=== PATIENT | female | born 1955 | race Caucasian/White ===

== ENCOUNTER → 2016-03-06 | Outpatient (REF) | payer MEDICARE ==
[~2016-03-06] MED LIST: /ADVA50050; COMBIVENT INHALER; CRES20TA; DEPA250T3; DEPA500T; GLUC500T; K-TA10TA; LASI40TA; LEVA500T; LIPI20TA; LISI20TA5; LISI40TA; OMEP20TA7; PRED20TA; PROZ20CA; SING10TA31; VENTAER; VICO5TAB
[2016-03-06 13:17] LABS: ALBUMIN 3.5 GM/DL (3.2-5.2); ALBUMIN/GLOBULIN RATIO 1.13 (1.00-1.93); ALKALINE PHOSPHATASE 129 U/L (45-117); ALT/SGPT 31 U/L (12-78); ANION GAP 7 MEQ/L (8-16); AST/SGOT 22 U/L (15-37); BILIRUBIN,TOTAL 0.5 MG/DL (0.2-1.0); BLOOD UREA NITROGEN 10 MG/DL (7-18); CALCIUM LEVEL 9.1 MG/DL (8.8-10.2); CARBON DIOXIDE LEVEL 34 MEQ/L (21-32); CHLORIDE LEVEL 104 MEQ/L (98-107); CHOLESTEROL LEVEL 159 MG/DL (<200); CREATININE FOR GFR 0.76 MG/DL (0.55-1.02); GLOMERULAR FILTRATION RATE > 60.0 (>45); GLUCOSE, FASTING 152 MG/DL (80-110); POTASSIUM SERUM 4.7 MEQ/L (3.5-5.1); SODIUM LEVEL 145 MEQ/L (136-145); TOTAL PROTEIN 6.6 GM/DL (6.4-8.2); TRIGLYCERIDES LEVEL 206 MG/DL (<150)
== END ==
LOC: M LABDRWAD 12:25
PROVIDERS: ATTEND Nurse Practitioner Family
DX: I10 Essential (primary) hypertension (principal); E78.4 Other hyperlipidemia; E61.1 Iron deficiency

== ENCOUNTER → 2016-07-11 | Outpatient (REF) | payer MEDICARE ==
[2016-07-11 12:44] LABS: BASO # 0.1 K/mm3 (0.0-0.2); BASO % 0.8 % (0.0-1.0); EOS # 0.4 K/mm3 (0.0-0.50); EOS % 3.6 % (0.0-3.0); LARGE UNSTAINED CELL # 0.1 K/mm3 (0.0-0.4); LYMPH # 2.4 K/mm3 (1.5-4.5); LYMPH % 19.4 % (24.0-44.0); MEAN CORPUSCULAR HEMOGLOBIN 30.4 pg (27.0-33.0); MEAN CORPUSCULAR HGB CONC 32.6 g/dl (32.0-36.5); MEAN CORPUSCULAR VOLUME 93.3 fl (80.0-96.0); MONO # 0.5 K/mm3 (0.0-0.8); MONO % 4.5 % (0.0-5.0); NEUTROPHILS # 8.4 K/mm3 (1.8-7.7); NEUTROPHILS % 70.7 % (36.0-66.0); PLATELET COUNT, AUTOMATED 220 k/mm3 (150-450); RED CELL DISTRIBUTION WIDTH 14.2 % (11.5-14.5); WHITE BLOOD COUNT 11.9 K/mm3 (4.0-10.0)
[2016-07-11 13:01] LABS: ALBUMIN 3.1 GM/DL (3.2-5.2); ALBUMIN/GLOBULIN RATIO 0.86 (1.00-1.93); ALKALINE PHOSPHATASE 129 U/L (45-117); ALT/SGPT 36 U/L (12-78); ANION GAP 5 MEQ/L (8-16); AST/SGOT 30 U/L (15-37); BILIRUBIN,TOTAL 0.4 MG/DL (0.2-1.0); BLOOD UREA NITROGEN 12 MG/DL (7-18); CALCIUM LEVEL 8.9 MG/DL (8.8-10.2); CARBON DIOXIDE LEVEL 33 MEQ/L (21-32); CHLORIDE LEVEL 103 MEQ/L (98-107); CHOLESTEROL LEVEL 170 MG/DL (<200); GLOMERULAR FILTRATION RATE > 60.0 (>45); GLUCOSE, FASTING 139 MG/DL (80-110); POTASSIUM SERUM 4.4 MEQ/L (3.5-5.1); SODIUM LEVEL 141 MEQ/L (136-145); TOTAL PROTEIN 6.7 GM/DL (6.4-8.2); TRIGLYCERIDES LEVEL 190 MG/DL (<150)
== END ==
LOC: M LABDRWAD 12:12
PROVIDERS: ATTEND Nurse Practitioner Family
DX: E78.4 Other hyperlipidemia (principal); E61.1 Iron deficiency

== ENCOUNTER → 2016-08-07 | Outpatient (CLI) | payer MEDICARE ==
--- NOTE | 2016-08-07 11:15 | REPMRS ---
Patient History The patient states she has not had a clinical breast exam in over a year. Patient is postmenopausal and is nulliparous. Family history of breast cancer in 3 maternal cousins. Digital Woman Screen Mammo: August 07, 2016 - Exam #: [id number] Bilateral CC and MLO view(s) were taken. Technologist: Caro Mahoney, Technologist Prior study comparison: January 08, 2014, digital woman screen mammo performed at [facility] to [facility]. December 31, 2009, bilateral bilat screen digital mammo performed at [facility]. FINDINGS: There are scattered fibroglandular densities. There has been no change in the appearance of the mammogram from the prior studies. There is a mild amount of residual fibroglandular tissue which is fairly symmetric. There is no interval development of dominant mass, architectural distortion, or clustered microcalcification suggestive of malignancy. ASSESSMENT: BI-RADS/ACR category 1 mammogram. Negative. Recommendation Routine screening mammogram in 1 year (for women over age 40). This mammogram was interpreted with the aid of an FDA-approved computer-aided dectection system. Electronically Signed By: Trav Abrams MD 08/07/16 1319
== END ==
LOC: M WHC 09:23
PROVIDERS: ATTEND Nurse Practitioner Family
DX: Z12.31 Encounter for screening mammogram for malignant neoplasm of breast (principal); Z78.0 Asymptomatic menopausal state; Z80.3 Family history of malignant neoplasm of breast

== ENCOUNTER 2016-10-10 15:45 | Inpatient (IN) | payer MEDICARE ==
[~2016-10-10] VITALS: Ht 165.1 cm; Wt 141.4 kg
[2016-10-10] MEDS ORDERED: SYMB16INH INH ×2 (15:58→18:10)
[2016-10-10] MEDS ORDERED: LOSA50TA20 PO ×2 (16:03→18:10)
[2016-10-10] MEDS ORDERED: GLIM2TAB PO ×2 (16:03→18:10)
[2016-10-10] MEDS ORDERED: ROCE1INJ4 IM (16:10)
[2016-10-10] MEDS ORDERED: NS 1,000 ML IV SCH (16:17)
[2016-10-10] MEDS ORDERED: ACETAMINOPHEN 325 MG TAB PO ONE (16:30)
[2016-10-10 16:57] LABS: VENOUS BASE EXCESS -0.7 (-2.0-2.0); VENOUS O2 SATURATION 90.8 % (60.0-80.0); VENOUS PARTIAL PRESSURE CO2 43.5 mmHg (38.0-50.0); VENOUS STANDARD HCO3 23.7 MEQ/L; VENOUS TOTAL CO2 26.1 MEQ/L (24.0-28.0)
[2016-10-10 17:02] LABS: BASO % 0.5 % (0.0-1.0); EOS # 0.1 K/mm3 (0.0-0.50); EOS % 0.7 % (0.0-3.0); LARGE UNSTAINED CELL % 0.1 % (0.0-4.0); LYMPH # 0.7 K/mm3 (1.5-4.5); LYMPH % 6.5 % (24.0-44.0); MEAN CORPUSCULAR HEMOGLOBIN 29.9 pg (27.0-33.0); MEAN CORPUSCULAR HGB CONC 32.1 g/dl (32.0-36.5); MEAN CORPUSCULAR VOLUME 93.2 fl (80.0-96.0); MONO # 0.1 K/mm3 (0.0-0.8); MONO % 0.7 % (0.0-5.0); NEUTROPHILS # 9.4 K/mm3 (1.8-7.7); NEUTROPHILS % 91.4 % (36.0-66.0); PLATELET COUNT, AUTOMATED 210 k/mm3 (150-450); RED CELL DISTRIBUTION WIDTH 14.4 % (11.5-14.5); WHITE BLOOD COUNT 10.3 K/mm3 (4.0-10.0)
[2016-10-10 17:19] LABS: ALBUMIN 3.4 GM/DL (3.2-5.2); ALBUMIN/GLOBULIN RATIO 0.83 (1.00-1.93); ALKALINE PHOSPHATASE 157 U/L (45-117); ALT/SGPT 30 U/L (12-78); ANION GAP 9 MEQ/L (8-16); AST/SGOT 19 U/L (15-37); BILIRUBIN,DIRECT < 0.1 MG/DL (0.0-0.2); BILIRUBIN,TOTAL 0.2 MG/DL (0.2-1.0); BLOOD UREA NITROGEN 12 MG/DL (7-18); CALCIUM LEVEL 9.3 MG/DL (8.8-10.2); CARBON DIOXIDE LEVEL 26 MEQ/L (21-32); CHLORIDE LEVEL 106 MEQ/L (98-107); CREATININE FOR GFR 1.22 MG/DL (0.55-1.02); GLOMERULAR FILTRATION RATE 47.5 (>45); GLUCOSE, FASTING 374 MG/DL (80-110); POTASSIUM SERUM 4.6 MEQ/L (3.5-5.1); SODIUM LEVEL 141 MEQ/L (136-145); TOTAL PROTEIN 7.5 GM/DL (6.4-8.2)
[2016-10-10] MEDS: IPRATROPIUM 0.5MG/ALBUTEROL 2.5MG INH SOL UD 3ML (DUONEB)(J7620) NEB PRN ×2 (17:20→17:29)
[2016-10-10] MEDS ORDERED: AZITHROMYCIN INJ 500 MG, VIAL MATE ADAPTER 1 EACH in D5W 250 ML IV ONE (17:30)
[2016-10-10] MEDS ORDERED: GLUCAGON FOR INJ 1 MG VIAL (J1610) SC PRN (18:00)
[2016-10-10] MEDS ORDERED: DEXTROSE 50% 50 ML SYRINGE IV PRN (18:00)
[2016-10-10] MEDS ORDERED: ONDANSETRON 4MG/2ML VIAL (J2405) IV PRN (18:00)
[2016-10-10] MEDS ORDERED: ALBUTEROL SULFATE 2.5 MG/0.5 ML INH NEB SOLN INH PRN (18:00)
[2016-10-10] MEDS ORDERED: GLUCOSE 4 GM CHEW TABLET PO PRN (18:00)
[2016-10-10] MEDS ORDERED: ALBU17IN INH (18:10)
[2016-10-10] MEDS ORDERED: OMEP20CA3 PO (18:10)
[2016-10-10] MEDS ORDERED: METF-699 PO (18:10)
--- NOTE | 2016-10-10 18:23 | ECGEPIP ---
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
[2016-10-10] MEDS ORDERED: SODIUM CHLORIDE 0.9% 1000 ML IV ONE (18:30)
[2016-10-10] MEDS ORDERED: methylPREDNISolone INJ 125 MG/2 ML VIAL (J2930) IV ONE (18:30)
[2016-10-10] MEDS ORDERED: PROZ20CA11 PO (18:37)
--- NOTE | 2016-10-10 18:51 | REP ---
REASON: Dyspnea. COMPARISON: 10/29/2009. FINDINGS: The superior mediastinal structures are midline. The cardiac silhouette is unremarkable in size, shape, and position. The diaphragmatic surfaces of the lungs are regular, and the costophrenic angles are clear. The pulmonary emery are clear. The imaged osseous structures are intact. Stable mild chronic changes without evidence of acute cardiopulmonary disease. IMPRESSION: There is no acute cardiopulmonary disease. Signed by Phillip Caldwell DO 10/10/2016 07:47 P
[2016-10-10] MEDS: cefTRIAXone SOD 2 GM in D5W MINI-BAG PLUS 50 ML IV SCH (20:22)
--- NOTE | 2016-10-10 20:48 | HPE ---
DATE OF ADMISSION: 10/10/2016 This is a patient of Dr. Debi Swenson. ELEMENTARY ART TEACHER: Ansley Randle MD CAR COUPLER: Nikolay Macario MD CHIEF COMPLAINT: Wheezing. The following is a summary of her presentation: This is a 61-year-old who felt unwell for a couple of weeks. She has been having a cough, which is not unusual for her, but generally feeling weak and tired, somewhat more short of breath. She has had increased wheezing over the last couple of days, also developed left-sided chest pain, which is pleuritic and only associated with cough, with cough it is a 3/10, it does not radiate, it is not associated with nausea or vomiting, it has been associated with fever at home, she forgot how high, but it did break last night and she was having diaphoresis. She has had upset stomach for a week. She went to Dr. Swenson's office today. He told her she had a touch of pneumonia and was given a dose of Rocephin and sent to the emergency department for evaluation. In the emergency department, she was found to be tachycardic with an elevated lactic acid and apparently was thought to need admission. She does have obstructive sleep apnea, which she is noncompliant with continuous positive airway pressure (CPAP). She does not describe orthopnea, paroxysmal nocturnal dyspnea, or lower extremity edema. She has no recent travel history. PAST MEDICAL HISTORY: Notable for bipolar, obstructive and restrictive pulmonary disease as noted in Dr. Perry's note of 09/13/2009, diabetes, not on insulin, hyperlipidemia, hypertension, obstructive sleep apnea, noncompliant with her device, degenerative joint disease, diastolic congestive heart failure secondary to left ventricular hypertrophy, morbid obesity with a body mass index (BMI) of 53 which complicates care. SURGICAL HISTORY: Notable for a dilatation and curettage (D and C). Socially, she continues to smoke at least a half a pack a day. She lives in [place]. She sees Dr. Swenson, she had previously seen Liam Crawley. ALLERGIES: She has an allergy to PENICILLIN. MEDICATIONS: At home are still being verified, but appear to include an ARB, glimepiride, and metformin. FAMILY HISTORY: Is notable for a mother who at age 54 of leukemia, father who in his 60s of heart disease. REVIEW OF SYSTEMS: Notable for a fever, diaphoresis, anxiety. No headache, no visual changes, no runny nose, no sore throat. She has a cough. She is short of breath. She has no abdominal pain. No change in her bowel or bladder habits. No history of seizures. Otherwise unremarkable. PHYSICAL EXAMINATION: Temperature 95.6, pulse 106, respiratory rate 18, blood pressure 156/83, she is reported as 84% on room air. Intake and output not yet available. BMI is 53. She is awake, appropriately interactive, pleasantly conversant but anxious. Sinuses are nontender. Pupils equal, round, and reactive, anicteric, not injected. Nasal septum is midline. Mucous membranes are moist. Neck is thick. I appreciate no elevation in jugular venous pressure (JVP). She feels warm to the touch. Breathing is symmetrical, diminished in bilateral bases without wheezes, rales, or rhonchi. She is having a nebulizer during this portion of my evaluation and breath sounds are diminished. There is no costovertebral angle (CVA) tenderness. There is no sacral edema. Heart is distant sounding, normal S1, S2. Radial pulses are 2+. She has a systolic ejection murmur loudest at the right sternal border which does not appear to radiate to the neck, it is 3/6. Abdomen soft, doughy, nontender. There are active bowel sounds. There is no suprapubic tenderness. There is no right upper quadrant tenderness. There is no significant lower extremity edema. Sensation is grossly intact in both lower extremities. There are no foot ulcers noted. White cell count 10.3, hemoglobin 17, platelets of 210, BUN 12, creatinine 1.22, lactic acid is 4.3, glucose of 374, CK 53, troponin I less than 0.02, BNP is 41, albumin is 3.4. Blood gas 7.37, 43, 58, 24. Two blood cultures are pending. Chest x-ray was unremarkable. EKG sinus tachycardia. My assessment is as follows: This is a 61-year-old with atypical chest pain, suspicion for community-acquired pneumonia. Patient will require a two midnight hospital stay and admission to the progressive care unit (PCU). Plan will be as follows: 1. Pneumonia. Patient is started on broad-spectrum antibiotics continued from the outpatient setting. Cultures. I have ordered a respiratory panel. She has received two Pneumovax type vaccines before and does receive yearly flu vaccines. 2. The patient has obstructive and restrictive lung disease according to previous documentation. She is noncompliant with continuous positive airway pressure (CPAP). Will be placed on continuous pulse oximetry and supplemental oxygen will be made available. She will have nebulizers and empiric steroids. May benefit from an Acapella type device. 3. The patient has diabetes. Finger sticks are elevated. Will do finger sticks and sliding scale during her stay. 4. The patient has underlying bipolar disorder. Will continue her home medications once they are verified. 5. The patient has a history of hypertension. Currently will give IV fluids and withhold her ARB. 6. Deep venous thrombosis (DVT) prophylaxis has been ordered appropriately in the form of Lovenox. 7. The patient has hyperlipidemia. 8. The patient has continued tobacco use. I have ordered a nicotine patch for her. 9. The patient has a previously unnoted right-sided heart murmur. 2D echocardiogram is ordered. It does say in Dr. Perry's previous note that she does have left ventricular hypertrophy and I would suspect diastolic dysfunction based on his documentation. This does not seem to be decompensated at this point in my evaluation.
[2016-10-10 21:00] VITALS: O2SAT 94
[2016-10-10 22:00] VITALS: O2SAT 92
[2016-10-10] MEDS: HumaLOG INSULIN (NovoLOG) PER UNIT SC SCH (22:04)
[2016-10-10] MEDS: NS 1,000 ML IV SCH (22:05)
[2016-10-10] MEDS: NICOTINE 21MG/24HR 1 EA TRANSDERMAL TD SCH (22:08)
[2016-10-10 22:21] VITALS: BP 151/72
[2016-10-10] MEDS: IPRATROPIUM 0.5MG/ALBUTEROL 2.5MG INH SOL UD 3ML (DUONEB)(J7620) NEB SCH (22:31)
--- NOTE | 2016-10-10 22:54 | HPE ---
DATE OF ADMISSION: 10/10/2016 Time patient was seen was at 2030 hours. PRIMARY CARE PROVIDER: Dr. Swenson CHIEF COMPLAINT: Feeling hot and itchy, was sent from primary care provider for possible pneumonia. HISTORY OF PRESENT ILLNESS: 61-year-old female with a past medical history of chronic obstructive pulmonary disease (COPD), bronchitis, polycythemia from severe COPD, insulin-dependent type 2 diabetes, anxiety, gastroesophageal reflux disease (GERD), bipolar, tobacco dependence, hyperlipidemia, hypertension, obstructive sleep apnea, noncompliant with continuous positive airway pressure (CPAP), diastolic heart failure, who presented with, per patient, feeling hot and itchy; however, she does not appear to be a good historian and appears to be agitated and would like to leave the hospital. Therefore, likely does not provide a full history. Per patient, she was recently taking Prozac and felt hot and itchy. She called the patient's primary care provider, Dr. Swenson, and was told that the patient should take Benadryl and see him the next morning. The patient, during the clinic visit, received losartan and also possibly Solu- Medrol and was told that she should come to the emergency room to get evaluated for possible pneumonia. In the emergency room, the patient stated that she is very sweaty but no actual temperature; however, she stated that she has a fever and was feeling very arm. Otherwise, denies any chest pain, trouble breathing, abdominal pain, nausea, vomiting, diabetes, constipation, problem with urination. Again, she would like to leave the hospital as soon as she can. It is possibly related to the patient's bipolar. ALLERGIES: The patient is allergic to PENICILLIN with unknown reaction; however , per herself, she has no allergies. HOME MEDICATIONS: Include: - Ventolin two puffs inhalation every 4 hours - Symbicort 160/4.5 mcg two puffs inhalation twice a day - Prozac 20 mg one tablet by mouth daily - glimepiride 2 mg by mouth daily - losartan 50 mg one tablet by mouth daily - metformin 500 mg by mouth daily - omeprazole 20 mg by mouth daily PAST MEDICAL HISTORY: 1. Nmu-wbhqwdm-qlfwzqjct type 2 diabetes. 2. COPD. 3. Polycythemia. 4. Anxiety/bipolar. 5. GERD. 6. Tobacco dependence. 7. Hyperlipidemia. 8. Hypertension. 9. Obstructive sleep apnea, noncompliant with CPAP. 10. Diastolic heart failure with ejection fraction of 65% with echocardiogram in 2009. PAST SURGICAL HISTORY: 1. Dilatation and curettage. SOCIAL HISTORY: The patient admits to smoking, smokes 1-1/2 packs per day for at least 40 years. Admits to occasional drinking. Denies any recreational drug use. The patient lives on her own. Does not have any pets. FAMILY HISTORY: The patient's father at age 69 from heart disease. Mother from possible leukemia at age 85. REVIEW OF SYSTEMS: GENERAL: The patient denies any recent traveling. Admits to one of her friend' s grandson had strep throat and who drank the same cup of water with her. Denies any recent weight loss. Admits to fever and chills; however, no measured fever. HEENT: Denies any changes with vision, smell, hearing or taste. Denies any trouble swallowing. Denies any cough or sore throat. CARDIOVASCULAR: Denies any shortness of breath. Denies any chest pain. However , the patient was hypoxic in the emergency room with saturation of only 84%. She admits to sleeping with two pillows and sometimes in a recliner. However, she stated that it was due to her neck and not due to other disease. PULMONARY: Admits to COPD and obstructive sleep apnea, noncompliant with CPAP. Per patient, she will likely need a sleep study. GASTROINTESTINAL: Denies any abdominal pain, nausea, vomiting, diarrhea, constipation. GENITOURINARY: Denies any dysuria, burning on urination, blood in the urine. MUSCULOSKELETAL: Denies any pain anywhere. ENDOCRINE: Denies any heat or cold intolerance. Admits to sweating. NEUROLOGIC: Denies any weakness on any side of her body. Denies any change in sensations. PSYCHIATRIC: Denies any anxiety or depression; however, she does seem to have a significant psychiatric disease of bipolar and sees Dr. Swenson. PHYSICAL EXAMINATION: VITAL SIGNS: Temperature 95.6, pulse 118, respirations 18, blood pressure 187/92, oxygen saturation 90% on room air. The patient's oxygen later was saturating as low as 84% on room air. GENERAL: The patient is a morbidly obese, elderly female who was alert, awake, oriented times three. Appears to be in mild distress. Sitting up comfortably in bed with head elevated at 90 degrees. HEENT: Normocephalic. Mucosa moist. NECK: Supple. No lymphadenopathy. CARDIOVASCULAR: Tachycardic. Normal S1, S2. Difficult to auscultate due to increased in AP diameter and body habitus. LUNGS: Clear to auscultation bilaterally. No wheezes, rales rhonchi. ABDOMEN: Positive bowel sounds. Soft, nontender, nondistended. No peritoneal signs. No ecchymosis. EXTREMITIES: No edema, clubbing or cyanosis. SKIN: Warm and sweaty. NEUROLOGIC: Cranial nerves II through XII intact. No gross neurological deficits. LABORATORY DATA: WBC 10.3, hemoglobin 17, hematocrit 33 with platelets count of 210 and MCV of 93.2. Sodium 141, potassium 4.6, chloride 106, bicarbonate 26, anion gap 9, BUN 12, creatinine 1.22, GFR 47.5, fasting glucose 374, lactic acid was 4.3, calcium 9.3 , AST 19, ALT 30, alkaline phosphatase 157, total CK 53, CK-MB 4.5, BNP was 40.9, total protein 7.5, albumin 3.4. Venous blood gas showed pH of 7.37, PCO2 of 43.5, PO2 of 58, saturation was 90.8 with base excess of -0.7. Blood culture times two is pending. The patient had a PA and lateral chest x-ray that showed no acute cardiopulmonary disease. ASSESSMENT AND PLAN: 61-year-old female with past medical history of COPD, likely bronchitis, polycythemia, jil-cqypexl-vvzxvavyu type 2 diabetes, anxiety, gastroesophageal reflux disease (GERD), tobacco dependence, bipolar, hyperlipidemia, hypertension, obstructive sleep apnea, diastolic heart failure with preserved ejection fraction, presented with : 1. Shortness of breath, likely secondary to chronic obstructive pulmonary disease (COPD) exacerbation versus possible pneumonia. The patient's chest x- ray was clear. However, the patient was sent by primary for pneumonia. She also has lactic acidosis, tachycardia and also appeared to be hypoxic in the emergency room. We will continue with IV steroids, Solu-Medrol 60 mg IV every 8 hours and IV antibiotic with azithromycin and also Rocephin. Continue patient on normal saline at 80 mL per hour. Respiratory panel has been ordered and result is pending. Also strep screen is ordered and result is pending. We will continue to monitor the patient. EKG shows tachycardic with ventricular rate of 111. 2. Polycythemia with hemoglobin of 17, which was chronic for patient and was secondary to chronic hypoxia. 3. Lactic acidosis with lactic acid of 4.3. We will tend a second time. Continue IV fluid at 80 mL per hour. Creatinine of 1.22. Likely secondary to prerenal azotemia. Continue IV fluid. 4. Tyt-tmgiqiw-gxripdigg type 2 diabetes. Continue insulin sliding scale. 5. Anxiety, bipolar. The patient does seem to have a significant psychiatric history. Follows with Dr. Swenson. However, in addition, the patient appears to be anxious in the emergency room and stated that she was breathing fine and would like to leave the hospital. 6. GERD. Continue home proton pump inhibitor. 7. Tobacco dependence. Continue NicoDerm. 8. Hyperlipidemia. Continue statin. 9. History of hypertension. Currently blood pressure is stable at 131/66. We will start the patient on as needed blood pressure medication if needed. 10. Obstructive sleep apnea. Noncompliant with continuous positive airway pressure (CPAP). We will continue home CPAP. However, the patient stated that she cannot bring it in and therefore we will ask respiratory to start the patient on inpatient CPAP. If the patient does not tolerate she may have 1 liter of nasal cannula oxygen during the night. At home, the patient does not use any oxygen and does not use CPAP. 11. Diastolic heart failure with last echocardiogram in 2008 and shows preserved ejection fraction. Continue to monitor. No fluid retention so far. 12. Deep vein thrombosis (DVT) prophylaxis with heparin 5000 units subcutaneously every 8 hours. 13. Fluid, electrolytes and diet. The patient is on normal saline at 80 mL per hour. No other electrolyte abnormalities. Continue patient on carbohydrate consistent diet. DISPOSITION: The patient has lactic acidosis, elevated heart rate and also was tachypneic and has prerenal azotemia. We will rule out infectious etiology. Blood culture times two is pending. Chest x-ray; however, does not look impressive. Continue IV antibiotic for now. We will deescalate as needed depending on culture. The patient has been discussed with attending doctor, Dr. Brown. I have both independently examined this patient as well as reviewed the dictated note. I have discussed in detail with the resident the findings and plan of treatment as documented in the residents note. I will continue to follow the patient and offer further guidance to the patients care as necessary during this hospital stay. JAYLEEN
[2016-10-10 23:00] VITALS: O2SAT 86
[2016-10-10 23:01] VITALS: O2SAT 90
[2016-10-10] MEDS: HEPARIN SOD (PORCINE) 5000 UNITS/ML VIAL SQ SCH (23:53)
[2016-10-10 23:55] VITALS: BP 141/78
[2016-10-11] VITALS (28 sets, daily range): BP systolic 145–161; BP diastolic 69–82; O2SAT 83–97
[2016-10-11] MEDS: IPRATROPIUM 0.5MG/ALBUTEROL 2.5MG INH SOL UD 3ML (DUONEB)(J7620) NEB SCH ×6 (04:14→23:55)
[2016-10-11] MEDS: methylPREDNISolone INJ 125 MG/2 ML VIAL (J2930) IV SCH ×3 (04:15→20:23)
[2016-10-11] MEDS: HEPARIN SOD (PORCINE) 5000 UNITS/ML VIAL SQ SCH ×3 (05:28→23:23)
[2016-10-11 05:54] LABS: BASO % 0.1 % (0.0-1.0); EOS # 0.1 K/mm3 (0.0-0.50); EOS % 0.6 % (0.0-3.0); LARGE UNSTAINED CELL % 0.3 % (0.0-4.0); LYMPH # 1.1 K/mm3 (1.5-4.5); LYMPH % 7.4 % (24.0-44.0); MEAN CORPUSCULAR HEMOGLOBIN 29.7 pg (27.0-33.0); MEAN CORPUSCULAR HGB CONC 32.2 g/dl (32.0-36.5); MEAN CORPUSCULAR VOLUME 92.3 fl (80.0-96.0); MONO # 0.2 K/mm3 (0.0-0.8); MONO % 1.4 % (0.0-5.0); NEUTROPHILS # 12.6 K/mm3 (1.8-7.7); NEUTROPHILS % 90.2 % (36.0-66.0); PLATELET COUNT, AUTOMATED 213 k/mm3 (150-450); RED CELL DISTRIBUTION WIDTH 14.5 % (11.5-14.5)
[2016-10-11 06:15] LABS: ANION GAP 11 MEQ/L (8-16); BLOOD UREA NITROGEN 15 MG/DL (7-18); CALCIUM LEVEL 8.5 MG/DL (8.8-10.2); CARBON DIOXIDE LEVEL 23 MEQ/L (21-32); CHLORIDE LEVEL 108 MEQ/L (98-107); CREATININE FOR GFR 0.88 MG/DL (0.55-1.02); GLOMERULAR FILTRATION RATE > 60.0 (>45); GLUCOSE, FASTING 222 MG/DL (80-110); POTASSIUM SERUM 4.4 MEQ/L (3.5-5.1); SODIUM LEVEL 142 MEQ/L (136-145)
[2016-10-11] MEDS: FLUoxetine 20 MG CAP PO SCH (08:34)
[2016-10-11] MEDS: OMEPRAZOLE 20 MG CAP PO SCH (08:34)
[2016-10-11] MEDS: NICOTINE 21MG/24HR 1 EA TRANSDERMAL TD SCH (08:35)
[2016-10-11] MEDS: HumaLOG INSULIN (NovoLOG) PER UNIT SC SCH ×4 (08:36→20:23)
[2016-10-11] MEDS: NS 1,000 ML IV SCH (08:37)
[2016-10-11] MEDS ORDERED: ENOXAPARIN 40 MG/0.4 ML SYRINGE (J1650) SC SCH (09:00)
[2016-10-11] MEDS: ACETAMINOPHEN TAB 650MG DOSE (2X325MG) PO PRN ×2 (10:46→20:22)
--- NOTE | 2016-10-11 13:32 | IPN ---
DATE: 10/11/2016 61-year-old female seen at bedside. She does appear to have some ongoing shortness of breath and expiratory wheezes audible when I entered the room. She denies any chest pain. No nausea or vomiting. OBJECTIVE: Temperature 98.3, pulse 100 and regular, respiratory rate is 22, blood pressure (BP) 145/71, SPO2 is 94% on room air. General: The patient appears to have some slight respiratory distress, unable to complete sentences when she talks and an audible expiratory wheeze is notable. HEENT: Head is atraumatic, normocephalic. Eyes: Pupils equal and reactive to light and accommodation (JACKSON). Throat clear. Neck: Supple. Unable to estimate jugular venous distention (JVD) due to body habitus. Lungs: Diminished bibasilar breath sounds with expiratory wheeze. No rhonchi. No rales. Heart: Regular rate and rhythm with a systolic ejection murmur at the right sternal border. It is non radiating. Abdomen is obese, soft, nontender. Extremities: No edema. No calf tenderness. LABORATORY DATA: White count 14,000, hemoglobin is 16.1 and platelets are 113,000. Sodium 142, potassium 4.4, chloride 108, bicarb 23, anion gap 11, BUN is 15, creatinine 0.88, glucose 222. Repeat lactic acid this morning was 4.5 - this likely is secondary to the work of breathing. She does not appear to be toxic or septic based on her physical exam. ASSESSMENT/PLAN: 1. Acute hypoxic respiratory failure with shortness of breath. Will continue with IV steroids, DuoNebs, IV Zithromax and Rocephin for possible underlying community acquired pneumonia. 2. Polycythemia with elevated hemoglobin. This is chronic and likely secondary to her chronic hypoxic state. 3. Lactic acidosis. She does not appear to be septic. She did receive IV fluids last evening. I did review her chest x-ray, it does not appear to have any pleural effusion; however it is a poor quality chest x-ray. She does have a new onset of a murmur. My concern is that we may volume overload her . We are going to stop the IV fluids and 2-D echo is pending at this time. 4. Systolic murmur as indicated above. Will do a 2-D echo. 5. Leukocytosis, likely reactive and secondary to steroid demargination. Will continue to trend. 6. Diabetes. Continue with fingersticks before meals and at bedtime, sliding scale coverage, consistent carbohydrate diet. 7. Anxiety and bipolar disorder. Appears to be stable. 8. Gastroesophageal reflux disease. Stable. 9. Tobacco use. Encourage smoking cessation. 10. Obstructive sleep apnea, noncompliant with C-PAP. 11. History of congestive heart failure (CHF) with diastolic heart failure. Previous echo in 2008 showed ejection fraction of 65%. Again, will go ahead and stop her IV fluids, fluid restrict her, and see how she does over the next 24 hours. 12. Deep vein thrombosis (DVT) prophylaxis. Subcutaneous heparin. DISPOSITION: Anticipate that she will be here another 24-48 hours.
[2016-10-11] MEDS ORDERED: FUROSEMIDE 40 MG/4 ML VIAL (J1940) IV ONE (15:00)
[2016-10-11] MEDS: AZITHROMYCIN INJ 500 MG, VIAL MATE ADAPTER 1 EACH in D5W 250 ML IV SCH (17:02)
[2016-10-11] MEDS: cefTRIAXone SOD 2 GM in D5W MINI-BAG PLUS 50 ML IV SCH (18:05)
--- NOTE | 2016-10-11 21:38 | ECHO ---
DATE OF PROCEDURE: 10/11/2016 REFERRING PHYSICIAN: Nikolay Brown MD PATIENT LOCATION: Room 3221 REASON FOR ECHOCARDIOGRAM: Heart murmur. 2D MEASUREMENTS: IVS: 1.3 cm LV: 5.3 cm LVPW: 1.3 cm LA: 3.7 cm Aorta: 3.1 cm DOPPLER MEASUREMENTS: Peak velocity across the aortic valve: 1.8 m/s Peak velocity across the LVOT: 1.1 m/s Mitral E: 0.82, Mitral A: 1.1, with a ratio of 0.8 2D COMMENTS: 1. Technically limited study due to poor acoustic window secondary to lung interference. 2. Normal left ventricular size and systolic function. There is mild concentric left ventricular hypertrophy. The estimated global left ventricular systolic ejection fraction is 60 to 65%. 3. Normal left atrium. The right atrium and the right ventricle appeared to be normal in limited views. 4. The atrial septum appeared to be normal without evidence of defect or shunt. 5. Normal aortic root. 6. No pericardial effusion seen in limited views. 7. Mildly calcified aortic valve, leaflet excursion appeared to be normal. Normal mitral valve and tricuspid valve. The pulmonic valve and proximal pulmonary artery branches were not well visualized. 8. The inferior vena cava was not well visualized. DOPPLER: No significant valvular abnormalities detected. Abnormal relaxation was noted across the mitral valve leaflets consistent with probably grade 1 left ventricular diastolic dysfunction. IMPRESSION: 1. Technically limited study due to poor acoustic window. 2. Normal global left ventricular systolic function with probably mild concentric left ventricular hypertrophy. There are features of left ventricular diastolic dysfunction, grade 1. 3. Aortic valve sclerosis with trivial aortic stenosis. There was no aortic regurgitation detected. MTDD
[2016-10-12] VITALS (16 sets, daily range): BP systolic 141–188; BP diastolic 80–102; O2SAT 79–91
[2016-10-12] MEDS: IPRATROPIUM 0.5MG/ALBUTEROL 2.5MG INH SOL UD 3ML (DUONEB)(J7620) NEB SCH ×6 (03:44→23:21)
[2016-10-12] MEDS: methylPREDNISolone INJ 125 MG/2 ML VIAL (J2930) IV SCH ×3 (04:44→20:08)
[2016-10-12] MEDS: HEPARIN SOD (PORCINE) 5000 UNITS/ML VIAL SQ SCH ×3 (04:44→21:45)
[2016-10-12 06:11] LABS: BASO % 0.2 % (0.0-1.0); EOS % 0.1 % (0.0-3.0); LARGE UNSTAINED CELL # 0.1 K/mm3 (0.0-0.4); LARGE UNSTAINED CELL % 0.5 % (0.0-4.0); LYMPH # 1.3 K/mm3 (1.5-4.5); LYMPH % 6.6 % (24.0-44.0); MEAN CORPUSCULAR HGB CONC 32.6 g/dl (32.0-36.5); MEAN CORPUSCULAR VOLUME 91.9 fl (80.0-96.0); MONO # 0.7 K/mm3 (0.0-0.8); MONO % 3.9 % (0.0-5.0); NEUTROPHILS # 16.2 K/mm3 (1.8-7.7); NEUTROPHILS % 88.6 % (36.0-66.0); PLATELET COUNT, AUTOMATED 228 k/mm3 (150-450); RED CELL DISTRIBUTION WIDTH 14.6 % (11.5-14.5); WHITE BLOOD COUNT 18.3 K/mm3 (4.0-10.0)
[2016-10-12 06:21] LABS: ANION GAP 10 MEQ/L (8-16); BLOOD UREA NITROGEN 22 MG/DL (7-18); CALCIUM LEVEL 9.1 MG/DL (8.8-10.2); CARBON DIOXIDE LEVEL 26 MEQ/L (21-32); CHLORIDE LEVEL 106 MEQ/L (98-107); CREATININE FOR GFR 0.79 MG/DL (0.55-1.02); GLOMERULAR FILTRATION RATE > 60.0 (>45); GLUCOSE, FASTING 203 MG/DL (80-110); MAGNESIUM LEVEL 2.3 MG/DL (1.8-2.4); POTASSIUM SERUM 4.4 MEQ/L (3.5-5.1); SODIUM LEVEL 142 MEQ/L (136-145)
[2016-10-12] MEDS: FLUoxetine 20 MG CAP PO SCH (08:03)
[2016-10-12] MEDS: HumaLOG INSULIN (NovoLOG) PER UNIT SC SCH ×4 (08:03→21:00)
[2016-10-12] MEDS: OMEPRAZOLE 20 MG CAP PO SCH (08:03)
[2016-10-12] MEDS: NICOTINE POLACRILEX 2 MG GUM PO PRN (12:30)
--- NOTE | 2016-10-12 13:21 | IPN ---
DATE: 10/12/2016 61-year-old female resting in bed. She does still subjectively appear to be somewhat short of breath. When she tries to speak has difficulty speaking complete sentences. OBJECTIVE: Temperature is 98.5, pulse 97, respiratory rate 18, blood pressure 141/84, SpO2 is 92% on 2 liters. General: The patient appears to be in no acute distress, is alert, pleasant. HEENT: Unremarkable. Lungs: Diminished bibasilar breath sounds, occasional wheeze. Heart: Regular rate and rhythm, but she does have a left sternal border systolic murmur that does not appear to be radiating, which was noticed on admission. Abdomen is obese, soft, nontender. Positive bowel sounds. No masses or rebound. Extremities: She does have some nonpitting edema of the ankles. No calf tenderness. LABORATORY DATA: White count is 18.3, hemoglobin 16.1 and platelets are 228. Sodium 142, potassium 4.4, chloride 106, bicarbonate 26, anion gap 10, BUN is 22, creatinine 0.79, glucose is 203. 2-D echo demonstrates left ventricular diastolic dysfunction grade 1, otherwise normal global left ventricular systolic function with probable mild concentric left ventricular hypertrophy, aortic valve sclerosis with trivial aortic stenosis. No aortic regurgitation. Otherwise, no significant valvular abnormalities. Left ventricular ejection fraction is 60-65%. ASSESSMENT AND PLAN: 1. Acute hypoxic respiratory failure with shortness of breath. She has continued on intravenous (IV) steroids, Zosyn, Rocephin and DuoNebs for possible underlying prior pneumonia. I would like to go ahead and check a bedside pulmonary function test (PFT) on her as well. 2. Leukocytosis. Likely steroid demargination. She remains afebrile. 3. Polycythemia with elevated hemoglobin. Likely secondary to chronic hypoxia. 4. Systolic murmur with no evidence of significant valvular disease on 2-D echo. 5. Grade 1 diastolic dysfunction. I do suspect that she has some mild component of congestive heart failure exacerbation. She did receive some IV fluids, which we have discontinued, fluid restrict her and gave her some Lasix. Symptom perez, she seems to be about the same. She has a good ejection fraction. 6. Leukocytosis. As stated above. Will continue to follow. 7. Diabetes. Continue fingersticks before meals (a.c.). nightly. Sliding scale coverage. Consistent carbohydrate diet. 8. Anxiety and bipolar disorder, stable. 9. Gastroesophageal reflux disease (GERD), stable. 10. Tobacco use. Encourage smoking cessation. 11. Obstructive sleep apnea. Noncompliant with continuous positive airway pressure (CPAP). 12. Deep venous thrombosis (DVT) prophylaxis. Subcutaneous heparin. DISPOSITION: We will have the patient evaluated by physical therapy (PT) and occupational therapy. I am concerned about her ambulating. She does get short of breath. However, she does have morbid obesity, which can complicate her medical care and multifactorial reasons for her shortness of breath. We will get a bedside PFT on her as well to rule out any restrictive lung disease.
[2016-10-12] MEDS: AZITHROMYCIN INJ 500 MG, VIAL MATE ADAPTER 1 EACH in D5W 250 ML IV SCH (17:30)
[2016-10-12] MEDS: cefTRIAXone SOD 2 GM in D5W MINI-BAG PLUS 50 ML IV SCH (17:30)
[2016-10-12] MEDS: FUROSEMIDE 40 MG/4 ML VIAL (J1940) IV SCH (18:41)
--- NOTE | 2016-10-12 19:52 | ECGEPIP ---
Stationary ECG Study [facility] Test Date: 2016-10-11 Pat Name: TANYA ALICIA Department: Room: [place] [address] Gender: F Makeup Instructor: JESSENIA : 1955 Requested By: LASHANDA Ceron Order Number: [id number] Reading MD: Eyad Pantoja Measurements Intervals [place] Rate: 108 P: 63 SC: 153 QRS: 17 QRSD: 83 T: 26 QT: 333 QTc: 448 Interpretive Statements SINUS TACHYCARDIA SIMILAR 10/10/16 Electronically Signed On 10-12-2016 19:52:02 EDT by Eyad Pantoja
[2016-10-13] VITALS: BP 150/70
[2016-10-13] MEDS: IPRATROPIUM 0.5MG/ALBUTEROL 2.5MG INH SOL UD 3ML (DUONEB)(J7620) NEB SCH ×7 (03:23→23:23)
[2016-10-13 04:00] VITALS: BP 152/74
[2016-10-13] MEDS: methylPREDNISolone INJ 125 MG/2 ML VIAL (J2930) IV SCH ×3 (05:04→19:56)
[2016-10-13] MEDS: HEPARIN SOD (PORCINE) 5000 UNITS/ML VIAL SQ SCH ×3 (05:04→23:39)
[2016-10-13 06:38] LABS: BASO % 0.2 % (0.0-1.0); EOS # 0.1 K/mm3 (0.0-0.50); EOS % 0.5 % (0.0-3.0); LARGE UNSTAINED CELL # 0.1 K/mm3 (0.0-0.4); LARGE UNSTAINED CELL % 0.6 % (0.0-4.0); LYMPH # 1.1 K/mm3 (1.5-4.5); LYMPH % 7.1 % (24.0-44.0); MEAN CORPUSCULAR HGB CONC 32.4 g/dl (32.0-36.5); MEAN CORPUSCULAR VOLUME 92.5 fl (80.0-96.0); MONO # 0.7 K/mm3 (0.0-0.8); MONO % 4.9 % (0.0-5.0); NEUTROPHILS % 86.8 % (36.0-66.0); PLATELET COUNT, AUTOMATED 196 k/mm3 (150-450); RED CELL DISTRIBUTION WIDTH 14.6 % (11.5-14.5)
[2016-10-13 07:45] LABS: ANION GAP 10 MEQ/L (8-16); BLOOD UREA NITROGEN 29 MG/DL (7-18); CALCIUM LEVEL 9.4 MG/DL (8.8-10.2); CARBON DIOXIDE LEVEL 29 MEQ/L (21-32); CHLORIDE LEVEL 103 MEQ/L (98-107); CREATININE FOR GFR 0.85 MG/DL (0.55-1.02); GLOMERULAR FILTRATION RATE > 60.0 (>45); GLUCOSE, FASTING 177 MG/DL (80-110); MAGNESIUM LEVEL 2.6 MG/DL (1.8-2.4); POTASSIUM SERUM 4.3 MEQ/L (3.5-5.1); SODIUM LEVEL 142 MEQ/L (136-145)
[2016-10-13 08:00] VITALS: BP 158/88
[2016-10-13] MEDS: HumaLOG INSULIN (NovoLOG) PER UNIT SC SCH ×4 (08:29→20:13)
[2016-10-13] MEDS: FLUoxetine 20 MG CAP PO SCH (08:30)
[2016-10-13] MEDS: OMEPRAZOLE 20 MG CAP PO SCH (08:30)
[2016-10-13] MEDS: FUROSEMIDE 40 MG/4 ML VIAL (J1940) IV SCH ×2 (08:30→17:10)
[2016-10-13] MEDS ORDERED: SLF 3 ML SYR IV PRN (09:45)
[2016-10-13] MEDS: NICOTINE POLACRILEX 2 MG GUM PO PRN (12:14)
[2016-10-13] MEDS: SLF 3 ML SYR IV SCH ×2 (14:25→23:39)
--- NOTE | 2016-10-13 14:49 | IPNPDOC ---
Date Seen The patient was seen on 10/13/16. Progress Note SUBJECTIVE: Patient is a [61]-year-old seen at bedside still with ongoiong shortness of breath, no chest pain , nausea or vomiting. Tolerating oral intake. OBJECTIVE PHYSICAL EXAMINATION: VITAL SIGNS: Please see below. GENERAL: [NAD] HEENT: [UNREMARKABLE] CARDIOVASCULAR: [RRR]. RESPIRATORY: [DIMINISHED BIBASILAR SOUNDS]. ABDOMINAL: [SOFT, NT/ND] EXTREMITIES: [NEGATIVE] LABORATORY DATA: Please see below. MICROBIOLOGY: Please see below. Echocardiogram: [2-D echo demonstrates left ventricular diastolic dysfunction grade 1, otherwise normal global left ventricular systolic function with probable mild concentric left ventricular hypertrophy, aortic valve sclerosis with trivial aortic stenosis. No aortic regurgitation. Otherwise, no significant valvular abnormalities. Left ventricular ejection fraction is 60-65%.]. DVT prophylaxis ordered?: [Subcutaneous Heparin] ASSESSMENT AND PLAN: This is a 61 yo female seen at bedside. PROBLEMS: 1. Acute hypoxic respiratory failure with shortness of breath. She has continued on intravenous (IV) steroids, Zosyn, Rocephin and DuoNebs for possible underlying prior pneumonia. I'd like for PT/OT to evaluate her for home safety and help determine her level of activity. 2. Leukocytosis. Likely steroid demargination. She remains afebrile. 3. Polycythemia with elevated hemoglobin. Likely secondary to chronic hypoxia. 4. Systolic murmur with no evidence of significant valvular disease on 2-D echo. 5. Grade 1 diastolic dysfunction. I do suspect that she has some mild component of congestive heart failure exacerbation. She did receive some IV fluids, which we have discontinued, fluid restrict her and gave her some Lasix. Symptom perez, she seems to be about the same. She has a good ejection fraction. 6. Leukocytosis. As stated above. Will continue to follow. 7. Diabetes. Continue fingersticks before meals (a.c.). nightly. Sliding scale coverage. Consistent carbohydrate diet. 8. Anxiety and bipolar disorder, stable. 9. Gastroesophageal reflux disease (GERD), stable. 10. Tobacco use. Encourage smoking cessation. 11. Obstructive sleep apnea. Noncompliant with continuous positive airway pressure (CPAP). DISPOSITION: [Will downgrade to the general medical floor and re-evaluate her tomorrow. I did have opportunity to speak to her health care proxy about concerns of her returning to a safe environment and appreciate PFS input. She will likely need home services.]. VS, I&O, 24H, Octaviae Vital Signs/I&O Vital Signs Date Time Temp Pulse Resp B/P (MAP) Pulse Ox O2 Delivery O2 Flow Rate FiO2 10/13/16 08:52 Nasal Cannula 2.0 10/13/16 08:00 98.3 100 19 158/88 (111) 89 I&O- Last 24 Hours up to 6 AM 10/13/16 06:00 Intake Total 2245 ml Output Total 3275 ml Balance -1030 ml Laboratory Data 24H LABS Laboratory Tests 2 10/12/16 17:17: Bedside Glucose (Misc Panel) 165H 10/12/16 21:44: Bedside Glucose (Misc Panel) 210H 10/13/16 05:30: White Blood Count 15.0H, Red Blood Count 5.42H, Hemoglobin 16.2H, Hematocrit 50.2H, Mean Corpuscular Volume 92.5, Mean Corpuscular Hemoglobin 30.0, Mean Corpuscular Hemoglobin Concent 32.4, Red Cell Distribution Width 14.6H, Platelet Count 196, Neutrophils (%) (Auto) 86.8H, Lymphocytes (%) (Auto) 7.1L, Monocytes (%) (Auto) 4.9, Eosinophils (%) (Auto) 0.5, Basophils (%) (Auto) 0.2, Neutrophils # (Auto) 13.0H, Lymphocytes # (Auto) 1.1L, Monocytes # (Auto) 0.7, Eosinophils # (Auto) 0.1, Basophils # (Auto) 0.0, Large Unclassified Cells % 0.6 , Large Unclassified Cells # 0.1 10/13/16 07:02: Anion Gap 10, Glomerular Filtration Rate > 60.0, Blood Urea Nitrogen 29H, Creatinine 0.85, Sodium Level 142, Potassium Level 4.3, Chloride Level 103, Carbon Dioxide Level 29, Calcium Level 9.4, Magnesium Level 2.6H 10/13/16 11:42: Bedside Glucose (Misc Panel) 181H CBC/BMP Laboratory Tests 10/13/16 05:30 Red Blood Count 5.42 H, Mean Corpuscular Volume 92.5, Mean Corpuscular Hemoglobin 30.0, Mean Corpuscular Hemoglobin Concent 32.4, Red Cell Distribution Width 14.6 H, Neutrophils (%) (Auto) 86.8 H, Lymphocytes (%) (Auto ) 7.1 L, Monocytes (%) (Auto) 4.9, Eosinophils (%) (Auto) 0.5, Basophils (%) ( Auto) 0.2, Neutrophils # (Auto) 13.0 H, Lymphocytes # (Auto) 1.1 L, Monocytes # (Auto) 0.7, Eosinophils # (Auto) 0.1, Basophils # (Auto) 0.0 10/13/16 07:02 Calcium Level 9.4 Microbiology Microbiology 10/10/16 Blood Culture - Preliminary, Resulted No Growth after 48 hours. All Specime... 10/10/16 Blood Culture - Preliminary, Resulted No Growth after 48 hours. All Specime... 10/10/16 Group A Streptococcus Screen (ANUJA) - Final, Complete 10/10/16 Group A Streptococcus Screen (ANUJA) - Final, Complete 10/10/16 Respiratory Virus Panel (PCR) (ANUJA) - Final, Complete SHO BOB DO Oct 13, 2016 14:49
[2016-10-13 15:20] VITALS: BP 145/76
--- NOTE | 2016-10-13 16:18 | REP ---
PA and lateral chest: Comparison is 2016. The lung emery are clear. The cardiac size is normal The juan, mediastinum, and bony thorax are unremarkable. Impression: Negative PA and lateral chest. There is no interval change. Signed by Trav Franks MD 10/13/2016 04:09 P
[2016-10-13] MEDS: AZITHROMYCIN INJ 500 MG, VIAL MATE ADAPTER 1 EACH in D5W 250 ML IV SCH (18:22)
[2016-10-13] MEDS: cefTRIAXone SOD 2 GM in D5W MINI-BAG PLUS 50 ML IV SCH (19:56)
[2016-10-13 22:00] VITALS: BP 159/90
[2016-10-13 23:16] VITALS: O2SAT 86
[2016-10-14] MEDS: methylPREDNISolone INJ 125 MG/2 ML VIAL (J2930) IV SCH ×2 (04:12→12:40)
[2016-10-14] MEDS: HEPARIN SOD (PORCINE) 5000 UNITS/ML VIAL SQ SCH ×3 (05:32→21:16)
[2016-10-14 06:00] VITALS: BP 158/88
[2016-10-14 06:46] LABS: ANION GAP 9 MEQ/L (8-16); BLOOD UREA NITROGEN 36 MG/DL (7-18); CALCIUM LEVEL 9.1 MG/DL (8.8-10.2); CARBON DIOXIDE LEVEL 30 MEQ/L (21-32); CHLORIDE LEVEL 103 MEQ/L (98-107); CREATININE FOR GFR 0.82 MG/DL (0.55-1.02); GLOMERULAR FILTRATION RATE > 60.0 (>45); GLUCOSE, FASTING 164 MG/DL (80-110); MAGNESIUM LEVEL 2.7 MG/DL (1.8-2.4); POTASSIUM SERUM 3.9 MEQ/L (3.5-5.1); SODIUM LEVEL 142 MEQ/L (136-145)
[2016-10-14] MEDS: SLF 3 ML SYR IV SCH ×3 (07:00→21:17)
[2016-10-14 07:12] LABS: BASO % 0.2 % (0.0-1.0); EOS % 0.1 % (0.0-3.0); LARGE UNSTAINED CELL # 0.1 K/mm3 (0.0-0.4); LARGE UNSTAINED CELL % 0.6 % (0.0-4.0); LYMPH % 8.4 % (24.0-44.0); MEAN CORPUSCULAR HEMOGLOBIN 29.8 pg (27.0-33.0); MEAN CORPUSCULAR HGB CONC 32.5 g/dl (32.0-36.5); MEAN CORPUSCULAR VOLUME 91.7 fl (80.0-96.0); MONO # 0.6 K/mm3 (0.0-0.8); MONO % 5.2 % (0.0-5.0); NEUTROPHILS % 85.5 % (36.0-66.0); PLATELET COUNT, AUTOMATED 205 k/mm3 (150-450); RED CELL DISTRIBUTION WIDTH 14.4 % (11.5-14.5); WHITE BLOOD COUNT 11.7 K/mm3 (4.0-10.0)
[2016-10-14] MEDS: IPRATROPIUM 0.5MG/ALBUTEROL 2.5MG INH SOL UD 3ML (DUONEB)(J7620) NEB SCH ×4 (08:10→20:52)
[2016-10-14] MEDS: FLUoxetine 20 MG CAP PO SCH (08:44)
[2016-10-14] MEDS: OMEPRAZOLE 20 MG CAP PO SCH (08:44)
[2016-10-14] MEDS: HumaLOG INSULIN (NovoLOG) PER UNIT SC SCH ×4 (08:45→21:17)
[2016-10-14] MEDS: FUROSEMIDE 40 MG/4 ML VIAL (J1940) IV SCH ×2 (08:46→17:28)
--- NOTE | 2016-10-14 08:55 | NOCOX ---
DATE OF SERVICE: 10/14/2016 Nocturnal oximetry recording was started on 10/13/2016 to 10/14/2016. The patient was started on room air; however, the patient had hypoxia at baseline while awake and resting in a recliner. On room air, oxygen saturation was 86% at rest while awake, heart rate was 90. The patient did sleep in a recliner the entire night. Oxygen saturation ranged from 61% to 96%, pulse ranged from 76-122. The total time spent with an oxygen saturation less than 80% was 45 minutes. The longest continuous time with an oxygen saturation less than 88 was 40 minutes and 18 seconds. There were variable desaturations throughout the evening with significant hypoxia. IMPRESSION: Significant hypoxia with variable desaturations. The patient had hypoxia at baseline prior to sleep. Recommend oxygen therapy. If there is concern for sleep apnea, consider formal polysomnogram.
[2016-10-14] MEDS: NICOTINE POLACRILEX 2 MG GUM PO PRN ×3 (09:00→18:52)
[2016-10-14 14:00] VITALS: BP 187/97
[2016-10-14] MEDS: AZITHROMYCIN 250 MG TAB PO SCH (14:49)
--- NOTE | 2016-10-14 15:39 | IPN ---
DATE: 10/14/2016 SUBJECTIVE: A 61-year-old female seen at bedside resting comfortably. She denies productive sputum, cough or hemoptysis. She has participated with physical therapy today and she continues on intravenous (IV) antibiotics. OBJECTIVE: Temperature 97.6, pulse 90, respiratory rate 19, blood pressure 158/88. SPO2 is 90% on room air. GENERAL: The patient appears to be in no acute distress. She is pleasant. HEENT: Unremarkable. LUNGS: Diminished bibasilar breath sounds; otherwise clear. HEART: Regular rate and rhythm. ABDOMEN: Obese, otherwise soft. EXTREMITIES: No edema or calf tenderness. She is noted to drop her oxygen saturations when she ambulates. She is demonstrating some relatively stable functionality; however, we are concerned about her living conditions as well as on IV antibiotics. LABORATORY DATA White count is 11.7 down from 15,000, hemoglobin 16.3, and platelets 205,000. Sodium 142, potassium 3.9, chloride 103, bicarb 30, anion gap nine, BUN is 36, creatinine 0.82, glucose 164. ASSESSMENT/PLAN 1. Acute hypoxic respiratory failure with shortness of breath. Continue IV steroids, Zosyn, Rocephin, DuoNeb. She was cleared by occupational therapy (OT). Physical therapy feels that she is close to her baseline. 2. Leukocytosis likely steroid demargination. She remains afebrile. Will start tapering her steroids tomorrow. 3. Polycythemia with elevated hemoglobin, likely secondary to chronic hypoxia. 4. Systolic murmur with no evidence of significant valvular disease on her 2-D echocardiogram. 5. Diabetes. Continue fingersticks before food and at bedtime, consistent carbohydrate diet with sliding-scale insulin. 6. Anxiety and bipolar disorder, stable. 7. Gastroesophageal reflux disease (GERD), stable. 8. Tobacco use. Encourage smoking cessation. 9. Obstructive sleep apnea (LUZ MARIA), noncompliant with continuous positive airway pressure (C-PAP). 10. Deep venous thrombosis (DVT) prophylaxis: Subcutaneous heparin. DISPOSITION: Anticipate that she will be here another 24-48 hours then likely discharge home with home services. JAYLEEN
[2016-10-14] MEDS: cefTRIAXone SOD 2 GM in D5W MINI-BAG PLUS 50 ML IV SCH (18:23)
[2016-10-14 22:00] VITALS: BP 158/85
[2016-10-15] MEDS ORDERED: methylPREDNISolone INJ 125 MG/2 ML VIAL (J2930) IV SCH
[2016-10-15] MEDS: IPRATROPIUM 0.5MG/ALBUTEROL 2.5MG INH SOL UD 3ML (DUONEB)(J7620) NEB SCH ×6 (03:03→20:55)
[2016-10-15] MEDS: HEPARIN SOD (PORCINE) 5000 UNITS/ML VIAL SQ SCH ×3 (05:26→20:18)
[2016-10-15] MEDS: SLF 3 ML SYR IV SCH ×3 (05:27→20:18)
[2016-10-15 06:00] VITALS: BP 163/82
[2016-10-15 06:24] LABS: BASO % 0.2 % (0.0-1.0); EOS % 0.1 % (0.0-3.0); LARGE UNSTAINED CELL # 0.1 K/mm3 (0.0-0.4); LARGE UNSTAINED CELL % 0.4 % (0.0-4.0); MEAN CORPUSCULAR HEMOGLOBIN 29.6 pg (27.0-33.0); MEAN CORPUSCULAR HGB CONC 32.3 g/dl (32.0-36.5); MEAN CORPUSCULAR VOLUME 91.4 fl (80.0-96.0); MONO # 0.5 K/mm3 (0.0-0.8); MONO % 3.4 % (0.0-5.0); NEUTROPHILS # 11.9 K/mm3 (1.8-7.7); NEUTROPHILS % 88.9 % (36.0-66.0); PLATELET COUNT, AUTOMATED 241 k/mm3 (150-450); RED CELL DISTRIBUTION WIDTH 14.3 % (11.5-14.5); WHITE BLOOD COUNT 13.4 K/mm3 (4.0-10.0)
[2016-10-15 06:43] LABS: ANION GAP 11 MEQ/L (8-16); BLOOD UREA NITROGEN 41 MG/DL (7-18); CALCIUM LEVEL 9.2 MG/DL (8.8-10.2); CARBON DIOXIDE LEVEL 28 MEQ/L (21-32); CHLORIDE LEVEL 103 MEQ/L (98-107); CREATININE FOR GFR 0.97 MG/DL (0.55-1.02); GLOMERULAR FILTRATION RATE > 60.0 (>45); GLUCOSE, FASTING 179 MG/DL (80-110); MAGNESIUM LEVEL 2.8 MG/DL (1.8-2.4); POTASSIUM SERUM 4.2 MEQ/L (3.5-5.1); SODIUM LEVEL 142 MEQ/L (136-145)
[2016-10-15] MEDS: OMEPRAZOLE 20 MG CAP PO SCH (08:17)
[2016-10-15] MEDS: FLUoxetine 20 MG CAP PO SCH (08:17)
[2016-10-15] MEDS: FUROSEMIDE 40 MG/4 ML VIAL (J1940) IV SCH ×2 (08:18→17:13)
[2016-10-15] MEDS: AZITHROMYCIN 250 MG TAB PO SCH (08:18)
[2016-10-15] MEDS: HumaLOG INSULIN (NovoLOG) PER UNIT SC SCH ×4 (08:19→20:18)
[2016-10-15] MEDS: NICOTINE POLACRILEX 2 MG GUM PO PRN ×2 (09:18→22:56)
[2016-10-15] MEDS: predniSONE 20 MG TAB PO SCH (12:18)
--- NOTE | 2016-10-15 13:03 | IPN ---
DATE: 10/15/2016 SUBJECTIVE: A 61-year-old female seen at bedside. No overnight issues reported. She is ambulating well. No chest pain. No productive sputum. No cough. OBJECTIVE: VITAL SIGNS: Temperature is 96.7, pulse 93, respiratory rate is 19, blood pressure 158/85, SPO2 is 92% on room air. GENERAL: The patient appears to be in no acute distress. She is alert and oriented. HEENT: Unremarkable. LUNGS: Clear. HEART: Regular rate and rhythm. ABDOMEN: Soft. EXTREMITIES: No edema. No calf tenderness. LABORATORY DATA: White count is 13.4, hemoglobin 17.5, platelets 241,000. Sodium 142, potassium 4.2, chloride 103, bicarbonate 28, anion gap 11, BUN 41, creatinine 0.97, glucose 179. ASSESSMENT AND PLAN: 1. Acute hypoxic respiratory failure with shortness of breath. Continue with DuoNebs. We did switch her Solu-Medrol to oral prednisone and began to taper and she has been switched to oral Zithromax. 2. Leukocytosis, likely some steroid demargination. She remains afebrile and this is trending downward. 3. Polycythemia with elevated hemoglobin, secondary to chronic hypoxia. 4. Systolic murmur. No evidence of significant valvular disease on 2-D echocardiogram. 5. Diabetes. Continue fingersticks before meals and at bedtime, consistent-carbohydrate diet with sliding scale insulin. 6. Anxiety, bipolar disorder, stable. 7. Gastroesophageal reflux disease (GERD), stable. 8. Tobacco use. Encourage smoking cessation. 9. Obstructive sleep apnea with history of being noncompliant with continuous positive airway pressure (CPAP). 10. Deep vein thrombosis (DVT) prophylaxis. Subcutaneous heparin. DISPOSITION: She is doing well with physical therapy. She is likely ready for home discharge tomorrow with home services.
[2016-10-15 14:00] VITALS: BP 150/92
[2016-10-15 20:41] VITALS: BP 162/98
[2016-10-16] MEDS: IPRATROPIUM 0.5MG/ALBUTEROL 2.5MG INH SOL UD 3ML (DUONEB)(J7620) NEB SCH ×4 (03:45→11:21)
[2016-10-16] MEDS: HEPARIN SOD (PORCINE) 5000 UNITS/ML VIAL SQ SCH (05:28)
[2016-10-16] MEDS: SLF 3 ML SYR IV SCH (05:29)
[2016-10-16 06:00] VITALS: BP 154/72
[2016-10-16 06:13] LABS: BASO # 0.1 K/mm3 (0.0-0.2); BASO % 0.8 % (0.0-1.0); EOS # 0.2 K/mm3 (0.0-0.50); EOS % 1.3 % (0.0-3.0); LARGE UNSTAINED CELL # 0.1 K/mm3 (0.0-0.4); LARGE UNSTAINED CELL % 0.7 % (0.0-4.0); LYMPH # 3.3 K/mm3 (1.5-4.5); LYMPH % 20.3 % (24.0-44.0); MEAN CORPUSCULAR HEMOGLOBIN 29.7 pg (27.0-33.0); MEAN CORPUSCULAR HGB CONC 32.6 g/dl (32.0-36.5); MEAN CORPUSCULAR VOLUME 91.3 fl (80.0-96.0); MONO # 0.9 K/mm3 (0.0-0.8); MONO % 5.4 % (0.0-5.0); NEUTROPHILS # 11.4 K/mm3 (1.8-7.7); NEUTROPHILS % 71.6 % (36.0-66.0); PLATELET COUNT, AUTOMATED 238 k/mm3 (150-450); WHITE BLOOD COUNT 15.9 K/mm3 (4.0-10.0)
[2016-10-16 06:27] LABS: ANION GAP 8 MEQ/L (8-16); BLOOD UREA NITROGEN 42 MG/DL (7-18); CALCIUM LEVEL 9.3 MG/DL (8.8-10.2); CARBON DIOXIDE LEVEL 30 MEQ/L (21-32); CHLORIDE LEVEL 100 MEQ/L (98-107); CREATININE FOR GFR 0.85 MG/DL (0.55-1.02); GLOMERULAR FILTRATION RATE > 60.0 (>45); GLUCOSE, FASTING 126 MG/DL (80-110); MAGNESIUM LEVEL 2.7 MG/DL (1.8-2.4); POTASSIUM SERUM 3.8 MEQ/L (3.5-5.1); SODIUM LEVEL 138 MEQ/L (136-145)
[2016-10-16] MEDS: predniSONE 20 MG TAB PO SCH (08:26)
[2016-10-16] MEDS: OMEPRAZOLE 20 MG CAP PO SCH (08:26)
[2016-10-16] MEDS: HumaLOG INSULIN (NovoLOG) PER UNIT SC SCH ×2 (08:26→13:02)
[2016-10-16] MEDS: FLUoxetine 20 MG CAP PO SCH (08:27)
[2016-10-16] MEDS: AZITHROMYCIN 250 MG TAB PO SCH (08:27)
[2016-10-16] MEDS ORDERED: FUROSEMIDE 40 MG TAB PO SCH (09:00)
[2016-10-16] MEDS: NICOTINE POLACRILEX 2 MG GUM PO PRN (10:38)
[2016-10-16] MEDS ORDERED: methylPREDNISolone 80MG/ML SUSP 1ML VIAL (J1040) IM ONE (11:15)
[2016-10-16] MEDS ORDERED: FURO40TA2 PO (11:38)
[2016-10-16] MEDS ORDERED: NICO2GUM62 PO (11:38)
--- NOTE | 2016-10-16 12:57 | DSES ---
DATE OF ADMISSION: 10/10/2016 DATE OF DISCHARGE: 10/16/2016 DATE OF DICTATION: 10/16/2016 PRIMARY CARE PROVIDER: Dr. Debi Swenson SWATCH CUTTER: Dr. Randle PRINCIPAL DIAGNOSIS: Exacerbation of chronic obstructive pulmonary disease (COPD) secondary to upper respiratory infection and noncompliance. SECONDARY DIAGNOSES: 1. Obstructive sleep apnea, noncompliant with continuous positive airway pressure (CPAP). 2. Hypoxemia secondary to untreated LUZ MARIA. 3. Polycythemia secondary to chronic hypoxia. 4. Type 2 diabetes secondary to obesity. 5. Morbid obesity. 6. Tobacco abuse. 7. Gastroesophageal reflux disease (GERD). 8. Chronic anxiety disorder. HISTORY: Misa Dong was admitted with shortness of breath. She had an infiltrate on chest x-ray, but was short of breath and hypoxemic. Details of the history and physical per admission. HOSPITALIZATION COURSE: The patient was admitted to a medical bed, treated with IV steroids, nebulized bronchodilator, and intravenous Zithromax. She was put on nicotine patches but did not tolerate the patches due to skin irritation. She was hypoxemic on admission and that improved, room air oxygen saturation returned to normal range. She did have a pulse oximetry done that suggested hypoxemia with a nocturnal oxygen level of 61 to 96%. She was recommended nocturnal oxygen, which she declined. She does agree to see pulmonology as an outpatient and discuss treatment of her currently untreated severe sleep apnea. She understands the risks of proceeding with this and accepts this in the presence of her family member, who I believed to be her daughter. She had a spirometry done that showed severe restricted problems secondary to obesity with an FEV1 of 50% predicted, FEV1/FVC of 107%, no obstruction, primarily restricted secondary to obesity. Echocardiogram was obtained and it showed ejection fraction of 60 to 65%. Mildly calcific aortic valve without aortic stenosis. Features of left ventricular diastolic dysfunction, which was mild. Technically difficult. No comment made about right sided pressures. Significant laboratories: White count 15.9 on steroids, hemoglobin 17.7, platelets 238, sodium 138, potassium 3.8, BUN 42, creatinine 0.8, glucose 126. Blood sugars have been in the 150 to 250 range. DISPOSITION: The patient is insisting on discharge today. I wanted her to see a cashier receptionist, but she is insisting on discharge. I wanted to discuss home oxygen, but as her room air oxygen saturations are normal she is declining oxygen. She understands that she has obstructive sleep apnea and that nocturnal oxygen would be useful, though benefit limited without the use of continuous positive airway pressure (CPAP). She does agree to followup with [facility]. On the day of discharge, her blood pressure is 154/72, pulse 55, respiratory rate 16, 95% oxygen saturation on room air. She is alert, conversant. No distress. HEENT: Shows a thick neck and narrow airway. LUNGS: Decreased breath sounds but clear. HEART: Regular rhythm without murmur. ABDOMEN: Soft, nontender. Obese. No masses. EXTREMITIES: Trace peripheral edema. The patient is discharged home. She will followup with Dr. Swenson. She has an appointment already scheduled for 10/19/2016. I have asked to have an appointment made with Dr. Randle to readdress her sleep apnea. She received a dose of Depo Medrol 80 mg intramuscularly before discharge. We will given her the steroid taper over the next week. MEDICATIONS ON DISCHARGE: - albuterol two puffs every four hours as needed - Symbicort 160/4.5 two puffs twice a day - Prozac 20 mg daily - glimepiride 2 mg daily - losartan 50 mg daily - metformin 500 mg daily - omeprazole 20 mg daily As noted above, she received Depo-Medrol 80 mg intramuscularly before discharge and we will hand her the steroid taper over the next week. She is started on furosemide 40 mg twice a day with a need to monitor the dosing and need for continuation of this, defer to her outpatient provider at the followup appointment on 10/19/2016. She is asking for nicotine 2 mg gum every 2 hours as needed for nicotine withdrawal. She cannot tolerate nicotine patches as they cause skin rash. edited: 10/18/2016 0816 gerardof SADED
[2016-10-18] MEDS ORDERED: predniSONE 10 MG TAB PO SCH (09:00)
[2016-10-21] MEDS ORDERED: predniSONE 20 MG TAB PO SCH (09:00)
[2016-10-24] MEDS ORDERED: predniSONE 10 MG TAB PO SCH (09:00)
== END 2016-10-16 13:47 | disposition home or self-care (01) | DRG 190 ==
LOC: M ED 15:45 → M ED INP 17:58 → M PCU 21:33 → M MSPAV 10-13 15:18
PROVIDERS: ADMIT Internal Medicine; ATTEND Family Medicine
DX: J44.1 Chronic obstructive pulmonary disease with (acute) exacerbation (principal); I50.33 Acute on chronic diastolic (congestive) heart failure; J96.01 Acute respiratory failure with hypoxia; E87.2 Acidosis; Z68.43 Body mass index [BMI] 50.0-59.9, adult; I11.9 Hypertensive heart disease without heart failure; E66.01 Morbid (severe) obesity due to excess calories; Z91.19 Patient's noncompliance with other medical treatment and regimen; G47.33 Obstructive sleep apnea (adult) (pediatric); E11.9 Type 2 diabetes mellitus without complications; F17.200 Nicotine dependence, unspecified, uncomplicated; K21.9 Gastro-esophageal reflux disease without esophagitis; F41.9 Anxiety disorder, unspecified; D75.1 Secondary polycythemia; Z79.899 Other long term (current) drug therapy; F31.9 Bipolar disorder, unspecified; E78.5 Hyperlipidemia, unspecified; Z88.0 Allergy status to penicillin; R01.1 Cardiac murmur, unspecified; D72.829 Elevated white blood cell count, unspecified

== ENCOUNTER → 2017-09-26 | Outpatient (REF) | payer MEDICARE ==
[2017-09-26 12:57] LABS: HEMATOCRIT 49.3 % (36.0-47.0); HEMOGLOBIN 16.1 g/dl (12.0-15.5); MEAN CORPUSCULAR HEMOGLOBIN 28.6 pg (27.0-33.0); MEAN CORPUSCULAR HGB CONC 32.7 g/dl (32.0-36.5); MEAN CORPUSCULAR VOLUME 87.6 fl (80.0-96.0); PLATELET COUNT, AUTOMATED 232 10^3/uL (150-450); RED BLOOD COUNT 5.63 10^6/uL (4.00-5.40); RED CELL DISTRIBUTION WIDTH 14.3 % (11.5-14.5); WHITE BLOOD COUNT 9.1 10^3/uL (4.0-10.0)
[2017-09-26 13:11] LABS: TOTAL 25(OH) VITAMIN D 16.8 NG/ML (30.0-100.0)
[2017-09-26 13:28] LABS: ALBUMIN 3.5 GM/DL (3.2-5.2); ALBUMIN/GLOBULIN RATIO 0.95 (1.00-1.93); ALKALINE PHOSPHATASE 125 U/L (45-117); ALT/SGPT 23 U/L (12-78); ANION GAP 9 MEQ/L (8-16); AST/SGOT 17 U/L (7-37); BILIRUBIN,TOTAL 0.7 MG/DL (0.2-1.0); BLOOD UREA NITROGEN 12 MG/DL (7-18); C REACTIVE PROTEIN QUANTITATIV 2.37 MG/DL (0.00-0.30); CARBON DIOXIDE LEVEL 31 MEQ/L (21-32); CHLORIDE LEVEL 98 MEQ/L (98-107); CHOLESTEROL LEVEL 221 MG/DL (<200); CREATININE FOR GFR 0.87 MG/DL (0.55-1.30); GLOMERULAR FILTRATION RATE > 60.0 (>45); GLUCOSE, FASTING 107 MG/DL (70-100); HDL CHOLESTEROL 41 MG/DL (>40); NON-HDL-C 180 MG/DL; POTASSIUM SERUM 4.6 MEQ/L (3.5-5.1); SODIUM LEVEL 138 MEQ/L (136-145); TOTAL PROTEIN 7.2 GM/DL (6.4-8.2); TRIGLYCERIDES LEVEL 190 MG/DL (<150)
[2017-09-26 13:35] LABS: ESTIMATED AVERAGE GLUCOSE 128 MG/DL (60-110); HEMOGLOBIN A1c 6.1 %
== END ==
LOC: M LABDRWAD 12:11
DX: I10 Essential (primary) hypertension (principal); R53.83 Other fatigue; Z79.899 Other long term (current) drug therapy
CPT/HCPCS: 84443

== ENCOUNTER 2017-11-20 13:11 | Inpatient (IN) | payer MEDICARE ==
[2017-11-20] MEDS: IPRATROPIUM 0.5MG/ALBUTEROL 2.5MG INH SOL UD 3ML (DUONEB)(J7620) NEB ×4 (13:35→20:00)
[2017-11-20] MEDS: methylPREDNISolone INJ 125 MG/2 ML VIAL (J2930) IV (13:57)
[2017-11-20 14:09] LABS: BASO # 0.1 10^3/uL (0.0-0.2); BASO % 0.5 % (0.0-1.0); EOS # 0.1 10^3/uL (0.0-0.50); EOS % 0.6 % (0.0-3.0); HEMATOCRIT 46.5 % (36.0-47.0); IMMATURE GRANULOCYTE % 0.6 % (0-3.0); LYMPH # 2.8 10^3/uL (1.5-4.5); LYMPH % 12.9 % (24.0-44.0); MEAN CORPUSCULAR HEMOGLOBIN 28.6 pg (27.0-33.0); MEAN CORPUSCULAR HGB CONC 32.3 g/dl (32.0-36.5); MEAN CORPUSCULAR VOLUME 88.7 fl (80.0-96.0); MONO # 1.7 10^3/uL (0.0-0.8); NEUTROPHILS # 16.8 10^3/uL (1.8-7.7); NEUTROPHILS % 77.4 % (36.0-66.0); PLATELET COUNT, AUTOMATED 236 10^3/uL (150-450); RED BLOOD COUNT 5.24 10^6/uL (4.00-5.40); RED CELL DISTRIBUTION WIDTH 14.8 % (11.5-14.5); WHITE BLOOD COUNT 21.7 10^3/uL (4.0-10.0)
[2017-11-20 14:23] LABS: ANION GAP 10 MEQ/L (8-16); BLOOD UREA NITROGEN 10 MG/DL (7-18); CALCIUM LEVEL 9.3 MG/DL (8.8-10.2); CARBON DIOXIDE LEVEL 28 MEQ/L (21-32); CHLORIDE LEVEL 101 MEQ/L (98-107); CK-MB VALUE MASS < 1.0 NG/ML (<3.6); CPK CREATINE PHOSPHOKINASE 26 U/L (26-192); CREATININE FOR GFR 0.73 MG/DL (0.55-1.30); GLOMERULAR FILTRATION RATE > 60.0 (>45); GLUCOSE, FASTING 95 MG/DL (70-100); MB/CK RELATIVE INDEX 3.85 (< OR =4); NT-PRO BNP 1586 PG/ML (<125); POTASSIUM SERUM 3.6 MEQ/L (3.5-5.1); SODIUM LEVEL 139 MEQ/L (136-145); TROPONIN I < 0.02 NG/ML (< 0.10)
[2017-11-20 15:30] LABS: ABG BASE EXCESS 0.9 (-2.0-2.0); ABG HCO3 27.3 MEQ/L (22.0-26.0); ABG O2 SATURATION 89.1 % (95.0-99.0); ABG PARTIAL PRESSURE CO2 50.2 mmHg (35.0-45.0); ABG PARTIAL PRESSURE O2 55.3 mmHg (75.0-100.0); ABG STANDARD HCO3 25.1 MEQ/L (22.0-26.0); ABG TOTAL CO2 28.9 MEQ/L (23.0-31.0); ABG pH (ARTERIAL) 7.354 UNITS (7.350-7.450)
[2017-11-20] MEDS: CEFEPIME HCL 2 GM in D5W MINI-BAG PLUS 50 ML IV (15:39)
[2017-11-20] MEDS ORDERED: diphenhydrAMINE 25 MG CAP PO (16:15)
[2017-11-20] MEDS ORDERED: AZITHROMYCIN INJ 500 MG, VIAL MATE ADAPTER 1 EACH in D5W 250 ML IV (16:15)
[2017-11-20] MEDS ORDERED: NICOTINE POLACRILEX 2 MG GUM PO ×2 (16:15→16:30)
[2017-11-20] MEDS ORDERED: CEFEPIME HCL 2 GM in D5W MINI-BAG PLUS 50 ML IV (16:15)
[2017-11-20] MEDS ORDERED: GLUCAGON FOR INJ 1 MG VIAL (J1610) SC (16:15)
[2017-11-20] MEDS ORDERED: IPRATROPIUM 0.5MG/ALBUTEROL 2.5MG INH SOL UD 3ML (DUONEB)(J7620) NEB (16:15)
[2017-11-20] MEDS ORDERED: DEXTROSE 50% 50 ML SYRINGE IV (16:15)
[2017-11-20] MEDS ORDERED: GLUCOSE 4 GM CHEW TABLET PO (16:15)
[2017-11-20] MEDS ORDERED: ALPRAZolam 0.5 MG TAB PO (16:15)
[2017-11-20] MEDS ORDERED: ACETAMINOPHEN TAB 650MG DOSE (2X325MG) PO (16:30)
[2017-11-20] MEDS ORDERED: ONDANSETRON 4MG/2ML VIAL (J2405) IV (16:30)
[2017-11-20 16:32] LABS: BEDSIDE GLUCOSE 114 MG/DL (80-115)
[2017-11-20 16:44] LABS: FREE T4 1.37 NG/DL (0.76-1.46)
[2017-11-20 16:49] LABS: ESTIMATED AVERAGE GLUCOSE 120 MG/DL (60-110); HEMOGLOBIN A1c 5.8 %
[2017-11-20] MEDS: VANCOMYCIN HCL 1,000 MG, VIAL MATE ADAPTER 1 EACH in D5W 250 ML IV ×2 (16:57→18:19)
[2017-11-20 18:17] LABS: BEDSIDE GLUCOSE 165 MG/DL (80-115)
[2017-11-20] MEDS: HumaLOG INSULIN (NovoLOG) PER UNIT SC ×2 (18:57→20:45)
[2017-11-20 20:08] LABS: CK-MB VALUE MASS < 1.0 NG/ML (<3.6); CPK CREATINE PHOSPHOKINASE 33 U/L (26-192); MB/CK RELATIVE INDEX 3.03 (< OR =4); TROPONIN I < 0.02 NG/ML (< 0.10)
[2017-11-20 20:22] LABS: BEDSIDE GLUCOSE 201 MG/DL (80-115)
[2017-11-20] MEDS ORDERED: NS 500 ML IV (20:30)
[2017-11-20 20:38] LABS: ABG BASE EXCESS 2.1 (-2.0-2.0); ABG HCO3 29.4 MEQ/L (22.0-26.0); ABG O2 SATURATION 94.2 % (95.0-99.0); ABG PARTIAL PRESSURE CO2 56.6 mmHg (35.0-45.0); ABG PARTIAL PRESSURE O2 72.7 mmHg (75.0-100.0); ABG STANDARD HCO3 26.3 MEQ/L (22.0-26.0); ABG TOTAL CO2 31.2 MEQ/L (23.0-31.0); ABG pH (ARTERIAL) 7.334 UNITS (7.350-7.450)
[2017-11-20] MEDS: SENOKOT S TAB PO (20:45)
[2017-11-20] MEDS: POTASSIUM CHLORIDE 10 MEQ SR TABLET PO (20:45)
[2017-11-20] MEDS: SYMBICORT 160/4.5MCG INHALER 6GM INH (21:00)
[2017-11-20] MEDS: MOXIFLOXACIN HCL 400 MG in APPROPRIATE DILUENT 1 EA IV (21:04)
[2017-11-20] MEDS: HEPARIN SOD (PORCINE) 5000 UNITS/ML VIAL SC (22:00)
[2017-11-21] MEDS: IPRATROPIUM 0.5MG/ALBUTEROL 2.5MG INH SOL UD 3ML (DUONEB)(J7620) NEB
[2017-11-21] MEDS: VANCOMYCIN HCL 1,000 MG, VIAL MATE ADAPTER 1 EACH in D5W 250 ML IV ×3 (01:01→16:56)
[2017-11-21] MEDS: methylPREDNISolone INJ 125 MG/2 ML VIAL (J2930) IV ×2 (04:48→15:01)
[2017-11-21] MEDS: HEPARIN SOD (PORCINE) 5000 UNITS/ML VIAL SC ×3 (05:40→21:00)
[2017-11-21 06:16] LABS: ABG BASE EXCESS 0.9 (-2.0-2.0); ABG HCO3 27.4 MEQ/L (22.0-26.0); ABG O2 SATURATION 91.8 % (95.0-99.0); ABG PARTIAL PRESSURE CO2 50.9 mmHg (35.0-45.0); ABG PARTIAL PRESSURE O2 63.6 mmHg (75.0-100.0); ABG STANDARD HCO3 25.1 MEQ/L (22.0-26.0); ABG pH (ARTERIAL) 7.349 UNITS (7.350-7.450)
[2017-11-21 06:29] LABS: HEMATOCRIT 45.4 % (36.0-47.0); HEMOGLOBIN 14.5 g/dl (12.0-15.5); MEAN CORPUSCULAR HEMOGLOBIN 28.6 pg (27.0-33.0); MEAN CORPUSCULAR HGB CONC 31.9 g/dl (32.0-36.5); MEAN CORPUSCULAR VOLUME 89.5 fl (80.0-96.0); PLATELET COUNT, AUTOMATED 237 10^3/uL (150-450); RED BLOOD COUNT 5.07 10^6/uL (4.00-5.40); RED CELL DISTRIBUTION WIDTH 14.8 % (11.5-14.5); WHITE BLOOD COUNT 14.3 10^3/uL (4.0-10.0)
[2017-11-21 06:53] LABS: ANION GAP 10 MEQ/L (8-16); BLOOD UREA NITROGEN 16 MG/DL (7-18); CALCIUM LEVEL 9.4 MG/DL (8.8-10.2); CARBON DIOXIDE LEVEL 26 MEQ/L (21-32); CHLORIDE LEVEL 103 MEQ/L (98-107); CREATININE FOR GFR 0.74 MG/DL (0.55-1.30); GLOMERULAR FILTRATION RATE > 60.0 (>45); GLUCOSE, FASTING 137 MG/DL (70-100); MAGNESIUM LEVEL 2.4 MG/DL (1.8-2.4); POTASSIUM SERUM 4.2 MEQ/L (3.5-5.1); SODIUM LEVEL 139 MEQ/L (136-145)
[2017-11-21] MEDS: ALBUTEROL SULFATE 2.5 MG/0.5 ML INH NEB SOLN NEB ×3 (07:56→21:47)
[2017-11-21] MEDS: SYMBICORT 160/4.5MCG INHALER 6GM INH ×2 (07:57→21:47)
[2017-11-21] MEDS: OMEPRAZOLE 20 MG CAP PO (08:30)
[2017-11-21] MEDS: POTASSIUM CHLORIDE 10 MEQ SR TABLET PO ×3 (08:30→20:59)
[2017-11-21] MEDS: FLUoxetine 20 MG CAP PO (08:30)
[2017-11-21] MEDS: HumaLOG INSULIN (NovoLOG) PER UNIT SC ×4 (08:31→20:53)
[2017-11-21] MEDS: LOSARTAN 50 MG TAB PO (08:33)
[2017-11-21] MEDS: SENOKOT S TAB PO ×2 (08:35→20:58)
[2017-11-21] MEDS ORDERED: FUROSEMIDE 40 MG TAB PO (09:00)
[2017-11-21 12:09] LABS: BEDSIDE GLUCOSE 219 MG/DL (80-115)
[2017-11-21 16:31] LABS: VANCOMYCIN LEVEL TROUGH 15.1 UG/ML (10.0-20.0)
[2017-11-21 16:44] LABS: BEDSIDE GLUCOSE 130 MG/DL (80-115)
[2017-11-21] MEDS: MOXIFLOXACIN HCL 400 MG in APPROPRIATE DILUENT 1 EA IV (20:00)
[2017-11-22] MEDS: VANCOMYCIN HCL 1,000 MG, VIAL MATE ADAPTER 1 EACH in D5W 250 ML IV ×2 (01:12→08:58)
[2017-11-22] MEDS: ALBUTEROL SULFATE 2.5 MG/0.5 ML INH NEB SOLN NEB ×4 (01:35→20:00)
[2017-11-22] MEDS: methylPREDNISolone INJ 125 MG/2 ML VIAL (J2930) IV (03:53)
[2017-11-22] MEDS: HEPARIN SOD (PORCINE) 5000 UNITS/ML VIAL SC ×3 (06:11→22:12)
[2017-11-22 06:30] LABS: HEMOGLOBIN 14.7 g/dl (12.0-15.5); MEAN CORPUSCULAR HEMOGLOBIN 28.7 pg (27.0-33.0); MEAN CORPUSCULAR VOLUME 89.7 fl (80.0-96.0); PLATELET COUNT, AUTOMATED 264 10^3/uL (150-450); RED BLOOD COUNT 5.13 10^6/uL (4.00-5.40); RED CELL DISTRIBUTION WIDTH 14.9 % (11.5-14.5)
[2017-11-22 06:52] LABS: ANION GAP 5 MEQ/L (8-16); BLOOD UREA NITROGEN 23 MG/DL (7-18); CALCIUM LEVEL 8.9 MG/DL (8.8-10.2); CARBON DIOXIDE LEVEL 27 MEQ/L (21-32); CHLORIDE LEVEL 107 MEQ/L (98-107); CREATININE FOR GFR 0.79 MG/DL (0.55-1.30); GLOMERULAR FILTRATION RATE > 60.0 (>45); GLUCOSE, FASTING 137 MG/DL (70-100); MAGNESIUM LEVEL 2.4 MG/DL (1.8-2.4); POTASSIUM SERUM 4.5 MEQ/L (3.5-5.1); SODIUM LEVEL 139 MEQ/L (136-145)
[2017-11-22] MEDS: SYMBICORT 160/4.5MCG INHALER 6GM INH ×2 (08:03→20:47)
[2017-11-22] MEDS: POTASSIUM CHLORIDE 10 MEQ SR TABLET PO ×3 (08:58→20:27)
[2017-11-22] MEDS: FLUoxetine 20 MG CAP PO (09:02)
[2017-11-22] MEDS: OMEPRAZOLE 20 MG CAP PO (09:02)
[2017-11-22] MEDS: LOSARTAN 50 MG TAB PO (09:02)
[2017-11-22] MEDS: SENOKOT S TAB PO ×2 (09:02→20:27)
[2017-11-22] MEDS: HumaLOG INSULIN (NovoLOG) PER UNIT SC ×4 (09:03→21:00)
[2017-11-22] MEDS: FUROSEMIDE 40 MG TAB PO (12:43)
[2017-11-22] MEDS: GLIMEPIRIDE 2 MG TAB PO (12:43)
[2017-11-22] MEDS: methylPREDNISolone INJ 40 MG/1 ML VIAL (J2920) IV (15:36)
[2017-11-22 16:43] LABS: BEDSIDE GLUCOSE 178 MG/DL (80-115)
[2017-11-22] MEDS: MOXIFLOXACIN HCL 400 MG in APPROPRIATE DILUENT 1 EA IV (20:27)
[2017-11-22 20:33] LABS: BEDSIDE GLUCOSE 163 MG/DL (80-115)
[2017-11-23] MEDS: ALBUTEROL SULFATE 2.5 MG/0.5 ML INH NEB SOLN NEB ×2 (00:58→07:47)
[2017-11-23] MEDS: methylPREDNISolone INJ 40 MG/1 ML VIAL (J2920) IV (04:57)
[2017-11-23] MEDS: HEPARIN SOD (PORCINE) 5000 UNITS/ML VIAL SC (05:01)
[2017-11-23 06:42] LABS: HEMATOCRIT 44.1 % (36.0-47.0); MEAN CORPUSCULAR HEMOGLOBIN 28.8 pg (27.0-33.0); MEAN CORPUSCULAR HGB CONC 31.7 g/dl (32.0-36.5); MEAN CORPUSCULAR VOLUME 90.7 fl (80.0-96.0); PLATELET COUNT, AUTOMATED 271 10^3/uL (150-450); RED BLOOD COUNT 4.86 10^6/uL (4.00-5.40); RED CELL DISTRIBUTION WIDTH 15.6 % (11.5-14.5); WHITE BLOOD COUNT 11.2 10^3/uL (4.0-10.0)
[2017-11-23 07:08] LABS: ANION GAP 6 MEQ/L (8-16); BLOOD UREA NITROGEN 24 MG/DL (7-18); C REACTIVE PROTEIN QUANTITATIV 5.45 MG/DL (0.00-0.30); CALCIUM LEVEL 8.8 MG/DL (8.8-10.2); CARBON DIOXIDE LEVEL 28 MEQ/L (21-32); CHLORIDE LEVEL 110 MEQ/L (98-107); CREATININE FOR GFR 0.64 MG/DL (0.55-1.30); GLOMERULAR FILTRATION RATE > 60.0 (>45); GLUCOSE, FASTING 92 MG/DL (70-100); MAGNESIUM LEVEL 2.3 MG/DL (1.8-2.4); POTASSIUM SERUM 4.7 MEQ/L (3.5-5.1); SODIUM LEVEL 144 MEQ/L (136-145)
[2017-11-23] MEDS: HumaLOG INSULIN (NovoLOG) PER UNIT SC (07:30)
[2017-11-23] MEDS: SYMBICORT 160/4.5MCG INHALER 6GM INH (07:47)
[2017-11-23] MEDS: POTASSIUM CHLORIDE 10 MEQ SR TABLET PO (09:15)
[2017-11-23] MEDS: GLIMEPIRIDE 2 MG TAB PO (09:15)
[2017-11-23] MEDS: FUROSEMIDE 40 MG TAB PO (09:15)
[2017-11-23] MEDS: OMEPRAZOLE 20 MG CAP PO (09:15)
[2017-11-23] MEDS: LOSARTAN 50 MG TAB PO (09:18)
[2017-11-23] MEDS: SENOKOT S TAB PO (09:19)
[2017-11-23] MEDS: FLUoxetine 20 MG CAP PO (09:19)
[2017-11-23] MEDS: MOXIFLOXACIN 400 MG TAB PO (09:23)
[2017-11-23] MEDS: INFLUENZA QUADRIVALENT PF VACCINE 0.5ML SYRINGE (90686) IM (11:58)
[2017-11-24 11:43] LABS: BEDSIDE GLUCOSE 189 MG/DL (80-115)
[2017-11-24 11:43] LABS: BEDSIDE GLUCOSE 185 MG/DL (80-115)
== END 2017-11-23 12:02 | disposition home health service (06) | DRG 193 ==
LOC: M ED 13:11 → M ED INP 16:17 → M MSPAV 17:32
DX: J18.1 Lobar pneumonia, unspecified organism (principal); G93.41 Metabolic encephalopathy; I50.30 Unspecified diastolic (congestive) heart failure; Z68.42 Body mass index [BMI] 45.0-49.9, adult; J44.1 Chronic obstructive pulmonary disease with (acute) exacerbation; J44.0 Chronic obstructive pulmonary disease with (acute) lower respiratory infection; E66.01 Morbid (severe) obesity due to excess calories; E11.9 Type 2 diabetes mellitus without complications; F17.210 Nicotine dependence, cigarettes, uncomplicated; F41.9 Anxiety disorder, unspecified; K21.9 Gastro-esophageal reflux disease without esophagitis; D75.1 Secondary polycythemia; F31.9 Bipolar disorder, unspecified; E78.5 Hyperlipidemia, unspecified; I11.0 Hypertensive heart disease with heart failure; G47.33 Obstructive sleep apnea (adult) (pediatric); Z91.19 Patient's noncompliance with other medical treatment and regimen; Z99.81 Dependence on supplemental oxygen; Z79.51 Long term (current) use of inhaled steroids; Z79.84 Long term (current) use of oral hypoglycemic drugs; Z79.899 Other long term (current) drug therapy; Z88.0 Allergy status to penicillin; Z88.1 Allergy status to other antibiotic agents

== ENCOUNTER → 2018-08-28 | Outpatient (CLI) | payer MEDICARE ==
[~2018-08-28] MED LIST changes: -/ADVA50050; +ACET-683 PO; +ACET1CAP2 PO; +ADVA1AER2; +ALBU17IN INH; +ALLE1TAB PO; +ALPR1TAB3 PO; +AVEL1TAB3 PO; +DIPH25CA PO; +FURO40TA2 PO; +GLIM2TAB PO; +LOSA50TA88 PO; +METF-699 PO; +NICO2GUM62 PO; +OMEP20CA4 PO; +POTA1TAB21 PO; +PRED10TA2 PO; +PROZ20CA11 PO; +ROCE1INJ6 IM; +SYMB16INH INH; +VENTAER INH
--- NOTE | 2018-08-28 09:59 | REPMRS ---
Patient History The patient states she had a clinical breast exam in 06/2018. Patient is postmenopausal and is nulliparous. No known family history of cancer. 3D TOMOSYNTHESIS WAS PERFORMED. [facility] lifetime risk for breast cancer is 7.9%. Digital Woman Screen Mammo: August 28, 2018 - Exam #: [id number] Bilateral MLO and CC view(s) were taken. XCCL view(s) were taken of the left breast. Technologist: Caro Mahoney, Technologist Prior study comparison: August 07, 2016, digital woman screen mammo performed at [facility]. January 08, 2014, digital woman screen mammo performed at [facility]. FINDINGS: There are scattered fibroglandular densities. There has been no change in the appearance of the mammogram from the prior studies. There is a mild amount of residual fibroglandular tissue which is fairly symmetric. There is no interval development of dominant mass, architectural distortion, or clustered microcalcification suggestive of malignancy. Assessment: BI-RADS/ACR category 1 mammogram. Negative Mammogram. Recommendation Routine screening mammogram in 1 year (for women over age 40). This mammogram was interpreted with the aid of an FDA-approved computer-aided dectection system. Electronically Signed By: Trav Abrams MD 08/28/18 [id number]
== END ==
LOC: M WHC 08:04
PROVIDERS: ATTEND Family Medicine
DX: Z12.31 Encounter for screening mammogram for malignant neoplasm of breast (principal); Z78.0 Asymptomatic menopausal state

== ENCOUNTER → 2018-12-25 | Outpatient (CLI) | payer MEDICARE ==
[~2018-12-25] MED LIST changes: -DIPH25CA PO; +DIPH25CA32 PO; -GLIM2TAB PO; +GLIM2TAB2 PO; +NICO2GUM52 PO; -NICO2GUM62 PO
[2018-12-25 09:55] LABS: HEMATOCRIT 54.7 % (36.0-47.0); HEMOGLOBIN 17.5 g/dl (12.0-15.5); MEAN CORPUSCULAR HEMOGLOBIN 29.8 pg (27.0-33.0); PLATELET COUNT, AUTOMATED 219 10^3/uL (150-450); RED BLOOD COUNT 5.88 10^6/uL (4.00-5.40); WHITE BLOOD COUNT 11.3 10^3/uL (4.0-10.0)
[2018-12-25 10:13] LABS: HEMOGLOBIN A1c 5.7 %
[2018-12-25 10:36] LABS: ALBUMIN 3.5 GM/DL (3.2-5.2); ALT/SGPT 18 U/L (12-78); BILIRUBIN,TOTAL 0.4 MG/DL (0.2-1.0); BLOOD UREA NITROGEN 18 MG/DL (7-18); CALCIUM LEVEL 9.5 MG/DL (8.8-10.2); CARBON DIOXIDE LEVEL 32 MEQ/L (21-32); CHLORIDE LEVEL 102 MEQ/L (98-107); CHOLESTEROL LEVEL 237 MG/DL (<200); CREATININE FOR GFR 0.76 MG/DL (0.55-1.30); GLOMERULAR FILTRATION RATE > 60.0 (>45); GLUCOSE, FASTING 94 MG/DL (70-100); HDL CHOLESTEROL 41 MG/DL (>40); LDL CHOLESTEROL 150 MG/DL (<100); NON-HDL-C 196 MG/DL; POTASSIUM SERUM 4.6 MEQ/L (3.5-5.1); SODIUM LEVEL 140 MEQ/L (136-145); TOTAL 25(OH) VITAMIN D 19.7 NG/ML (30.0-100.0); TOTAL PROTEIN 7.4 GM/DL (6.4-8.2); TRIGLYCERIDES LEVEL 231 MG/DL (<150)
== END ==
LOC: M LAB 08:27
PROVIDERS: ATTEND Family Medicine
DX: D64.9 Anemia, unspecified (principal); E11.9 Type 2 diabetes mellitus without complications; R53.83 Other fatigue; E03.9 Hypothyroidism, unspecified; Z79.899 Other long term (current) drug therapy

== ENCOUNTER → 2019-08-08 | Outpatient (CLI) | payer MEDICARE ==
[~2019-08-08] MED LIST changes: -GLIM2TAB2 PO; +GLIM2TAB4 PO; -NICO2GUM52 PO; +NICO2GUM54 PO; +OMEP1CAP73 PO; -OMEP20CA4 PO
[2019-08-08 12:00] LABS: HEMATOCRIT 55.4 % (36.0-47.0); HEMOGLOBIN 16.7 g/dl (12.0-15.5); MEAN CORPUSCULAR HEMOGLOBIN 28.2 pg (27.0-33.0); MEAN CORPUSCULAR HGB CONC 30.1 g/dl (32.0-36.5); MEAN CORPUSCULAR VOLUME 93.4 fl (80.0-96.0); PLATELET COUNT, AUTOMATED 181 10^3/uL (150-450); RED BLOOD COUNT 5.93 10^6/uL (4.00-5.40); WHITE BLOOD COUNT 10.1 10^3/uL (4.0-10.0)
[2019-08-08 12:42] LABS: ALBUMIN 3.1 GM/DL (3.2-5.2); ALT/SGPT 18 U/L (12-78); BILIRUBIN,TOTAL 0.9 MG/DL (0.2-1.0); BLOOD UREA NITROGEN 13 MG/DL (7-18); CALCIUM LEVEL 8.8 MG/DL (8.8-10.2); CARBON DIOXIDE LEVEL 33 MEQ/L (21-32); CHLORIDE LEVEL 101 MEQ/L (98-107); CREATININE FOR GFR 0.74 MG/DL (0.55-1.30); GLOMERULAR FILTRATION RATE > 60.0 (>45); GLUCOSE, FASTING 58 MG/DL (70-100); POTASSIUM SERUM 4.8 MEQ/L (3.5-5.1); SODIUM LEVEL 137 MEQ/L (136-145); THYROID STIMULATING HORMONE 0.685 uIU/ML (0.358-3.740); TOTAL 25(OH) VITAMIN D 26.3 NG/ML (30.0-100.0); TOTAL PROTEIN 6.4 GM/DL (6.4-8.2)
[2019-08-08 13:18] LABS: HEMOGLOBIN A1c 5.7 %
== END ==
LOC: M LAB 11:09
PROVIDERS: ATTEND Family Medicine
DX: Z79.899 Other long term (current) drug therapy (principal); I10 Essential (primary) hypertension; R53.83 Other fatigue

== ENCOUNTER → 2019-11-16 | Outpatient (REF) | payer MEDICARE ==
[~2019-11-16] MED LIST changes: +FLUO40CA PO; +FURO20TA2 PO; +LASI40TA9 PO; +LEVO2TA PO; +MACR100C43 PO; -METF-699 PO; +METF-817 PO; +METF500T13 PO; +NICO-13 PO; +NICO1PAT36 TOP; -NICO2GUM54 PO
== END ==
LOC: M WUC 17:17
PROVIDERS: ATTEND Nurse Practitioner Family
DX: N39.0 Urinary tract infection, site not specified (principal)

== ENCOUNTER 2019-11-19 12:48 | Inpatient (IN) | payer MEDICARE ==
[~2019-11-19] VITALS: Ht 165.1 cm; Wt 137.6 kg
[~2019-11-19 12:48] MED LIST changes: -FLUO40CA PO; -FURO20TA2 PO; -LASI40TA9 PO; -LEVO2TA PO; -MACR100C43 PO; -METF500T13 PO; -NICO1PAT36 TOP
[2019-11-19] MEDS ORDERED: dexameTHASONE 20MG/5ML VIAL (J1100 PER 1MG) IV ONE (13:45)
[2019-11-19 14:01] LABS: VENOUS BASE EXCESS 2.6 (-2.0-2.0); VENOUS HCO3 32.6 MEQ/L (23.0-27.0); VENOUS O2 SATURATION 94.9 % (60.0-80.0); VENOUS PARTIAL PRESSURE O2 76.7 mmHg (30.0-50.0); VENOUS PH 7.274 UNITS (7.330-7.430); VENOUS STANDARD HCO3 26.7 MEQ/L; VENOUS TOTAL CO2 34.8 MEQ/L (24.0-28.0)
[2019-11-19 14:07] LABS: BASO # 0.1 10^3/uL (0.0-0.2); BASO % 0.8 % (0.0-1.0); EOS % 0.3 % (0.0-3.0); HEMATOCRIT 60.6 % (36.0-47.0); HEMOGLOBIN 17.7 g/dl (12.0-15.5); LYMPH # 1.4 10^3/uL (1.5-5.0); MEAN CORPUSCULAR HEMOGLOBIN 27.5 pg (27.0-33.0); MEAN CORPUSCULAR HGB CONC 29.2 g/dl (32.0-36.5); MEAN CORPUSCULAR VOLUME 94.1 fl (80.0-96.0); MONO # 0.8 10^3/uL (0.0-0.8); MONO % 7.9 % (0.0-5.0); NEUTROPHILS # 8.2 10^3/uL (1.5-8.5); NEUTROPHILS % 77.2 % (36.0-66.0); PLATELET COUNT, AUTOMATED 195 10^3/uL (150-450); RED BLOOD COUNT 6.44 10^6/uL (4.00-5.40); WHITE BLOOD COUNT 10.6 10^3/uL (4.0-10.0)
[2019-11-19] MEDS: COMBIVENT RESPIMAT 100-20MCG INHALER 4GM INH SCH ×3 (14:19→14:48)
--- NOTE | 2019-11-19 14:32 | REPVR ---
PROCEDURE INFORMATION: Exam: XR Chest, 1 View Exam date and time: 11/19/2019 2:19 PM Age: 64 years old Clinical indication: Other: PT states has sinus infection. ; Additional info: Dyspnea/cough TECHNIQUE: Imaging protocol: XR of the chest Views: 1 view. COMPARISON: CR Chest, 2 view PA, Lat 11/20/2017 2:00 PM FINDINGS: Lungs: No focal lung consolidation. Pleural space: No definite pleural effusion or pneumothorax. Heart/Mediastinum: There appears to be cardiomegaly which may in part be due to AP portable positioning and atherosclerotic calcification of the thoracic aorta. Bones/joints: No significant skeletal findings however bone detail is limited. IMPRESSION: No acute findings. Electronically signed by: Radha Peguero On 11/19/2019 14:31:46 PM
[2019-11-19 14:43] LABS: GLUCOSE, FASTING 81 MG/DL (70-100)
[2019-11-19 14:44] LABS: ALBUMIN 3.3 GM/DL (3.2-5.2); ALT/SGPT 20 U/L (12-78); BILIRUBIN,DIRECT 0.2 MG/DL (0.0-0.2); BILIRUBIN,TOTAL 0.7 MG/DL (0.2-1.0); BLOOD UREA NITROGEN 22 MG/DL (7-18); CALCIUM LEVEL 8.9 MG/DL (8.8-10.2); CARBON DIOXIDE LEVEL 32 MEQ/L (21-32); CHLORIDE LEVEL 103 MEQ/L (98-107); CK-MB VALUE MASS 1.2 NG/ML (<3.6); CPK CREATINE PHOSPHOKINASE 31 U/L (26-192); CREATININE FOR GFR 0.74 MG/DL (0.55-1.30); GLOMERULAR FILTRATION RATE > 60.0 (>45); MB/CK RELATIVE INDEX 3.87 (< OR =4); NT-PRO BNP 6413 PG/ML (<125); POTASSIUM SERUM 5.2 MEQ/L (3.5-5.1); SODIUM LEVEL 140 MEQ/L (136-145); THYROID STIMULATING HORMONE 0.511 uIU/ML (0.358-3.740); THYROXINE (T4) 10.4 UG/DL (4.5-12.0); TROPONIN I < 0.02 NG/ML (< 0.10)
[2019-11-19] MEDS ORDERED: FUROSEMIDE 40MG/4ML VIAL (J1940) IV ONE (15:45)
[2019-11-19] MEDS ORDERED: FLUO40CA PO (18:16)
[2019-11-19] MEDS ORDERED: ALPR1TAB3 PO (18:16)
[2019-11-19] MEDS ORDERED: LEVO2TA PO (18:16)
[2019-11-19] MEDS ORDERED: MACR100C43 PO (18:16)
[2019-11-19] MEDS ORDERED: METF500T13 PO (18:16)
--- NOTE | 2019-11-19 19:28 | HPEPDOC ---
[facility] Medical History & Physical Date of Admission Nov 19, 2019 Date of Service: Nov 19, 2019 Primary Care Physician: Aleyda Swenson Attending Physician: ZEUS COVINGTON MD History and Physical TIME OF SERVICE: 9:15 PM CHIEF COMPLAINT: Confusion HISTORY OF PRESENT ILLNESS: This 64-year-old female presented with complaints of feeling confused for a few days. Per discussion with the GASOLINE TESTER when she arrived, the patient was combative and didn't want his stay. But, shortly after receiving Lasix, steroids and DuoNeb's. Her mental status improved and she became more cooperative. Despite receiving medications. Her O2 sats dropped to 75% with ambulation. The patient denied having fevers, chills, chest pain, abdominal pain, falling, or bilateral lower extremity edema. At her baseline, she sleeps sitting up in a recliner, but is unable to describe what happens if she tries to lie down flat to sleep. She has a chronic cough which has not changed recently. The patient added that she went to an urgent care center and was diagnosed with a UTI a few days ago but has not completed her course of antibiotics. REVIEW OF SYSTEMS: 12 point review of systems negative except as listed in HPI PAST MEDICAL/ SURGICAL HISTORY: NIDDM, the patient discontinued her metformin Chronic diastolic CHF Chronic HTN LUZ MARIA not compliant with CPAP COPD Chronic O2 dependent respiratory failure with hypoxia and hypercarbia 2 L GERD Anxiety Bipolar disorder D & C SOCIAL HISTORY: She smokes She doesn't use alcohol She doesn't use recreational drugs FAMILY HISTORY: CHF Leukemia CAD ALLERGIES: Please see below. HOME MEDICATIONS: Please see below. PHYSICAL EXAMINATION: Vital Signs Date Time Temp Pulse Resp B/P (MAP) Pulse Ox O2 Delivery O2 Flow Rate FiO2 11/19/19 12:58 96.6 76 22 143/76 92 Nasal Cannula 6.0 GEN: well nourished / well developed/ NAD INTEGUMENT: She doesn't have facial plethora HEENT:NCAT / lips are not cyanotic/ she doesn't have pursed lip breathing / NC in place / mucus membranes moist and pink CVS: RRR/ radial pulses intact / + BLE edema LUNGS: there is no nasal flairing / not able to speak full sentences without stopping to take a breath / coughing / not using accessory muscles / there is normal respiratory expansion/ lungs are not hyper resonant on percussion / breath sounds are diminished ABDOMEN: obese MSK/EXTREMITIES: seated up in hospital chair NEURO: CN 2-12 are grossly intact / speech is not dysarthric PSYCH: alert and oriented to person place and time/ able to understand and follow all commands LABORATORY DATA: 11/19/19 13:48 Immature Granulocyte % (Auto) 0.8, Neutrophils (%) (Auto) 77.2H, Lymphocytes (%) (Auto) 13.0L, Monocytes (%) (Auto) 7.9H, Eosinophils (%) (Auto) 0.3, Basophils (%) (Auto) 0.8, Neutrophils # (Auto) 8.2, Lymphocytes # (Auto) 1.4L, Monocytes # (Auto) 0.8, Eosinophils # (Auto) 0.0, Basophils # (Auto) 0.1, Nucleated Red Blood Cells % (auto) 0.2H, Blood Gas Bicarbonate Standard 26.7, Venous Blood pH 7.274L, Venous Blood Partial Pressure CO2 72.0H, Venous Blood Partial Pressure O2 76.7H, Venous Blood Total Carbon Dioxide 34.8H, Venous Blood HCO3 32.6H, Venous Blood Oxygen Saturation 94.9H, Venous Blood Base Excess 2.6H, Anion Gap 5L, Glomerular Filtration Rate > 60.0, Calcium Level 8.9, Total Bilirubin 0.7, Direct Bilirubin 0.2, Aspartate Amino Transf (AST/SGOT) 9, Alanine Aminotransferase (ALT/SGPT) 20, Alkaline Phosphatase 117, Total Creatine Kinase 31, Creatine Kinase MB 1.2, Creatine Kinase MB Relative Index 3.87, Troponin I < 0.02, FY-Rvj-N-Type Natriuretic Peptide 6413H, Total Protein 7.0, Albumin 3.3, Albumin/Globulin Ratio 0.9L, Thyroid Stimulating Hormone (TSH) 0.511, Thyroxine (T4) 10.4 IMAGING: Chest xray "IMPRESSION: No acute findings." MICROBIOLOGY: 11/19/19 Blood Culture, Received Pending 11/19/19 Blood Culture, Received Pending ASSESSMENT: Ms. Dong is a 64-year-old with a history of noncompliance, NIDDM, grade 1 diastolic CHF, HTN, LUZ MARIA, COPD, & chronic oxygen dependence with hypoxia and hypercarbia who presented with confusion; she was found to be hypercarbic and hypoxic and her BNP had increased from 15,00 to greater than 64,00. Her mental status improved after she received duo nebs, Lasix, and Solu-Medrol. She will be admitted for management of acute COPD and acute diastolic CHF. PLAN: 1 Encephalopathy likely 2/2 Hypercarbia Resolved after receiving solumedrol and duonebs Plan: admit to med surg / treat COPD and diastolic CHF / nocturnal CPAP 2 Acute COPD Trigger may be aspiration or worsening CHF The respiratory panel, chest xray and troponin r/o viral infection, PNA or myocardial ischemia as causes of the COPD exacerbation ABG showed hypercarbia Reasons for admission: -Her O2 sats dropped as low as 75% w ambulation -[place] chronic obstructive pulmonary disease risk scare (OCRS) guide to admission vs discharge in COPD exacerbation = 4 points = high risk = 20.9% risk of adverse event Plan: admit to med surg / supplemental O2 / continuous pulse oximetry / aspiration precautions / elevate HOB / COPD diet / f/u repeat VBG in the morning, if she develops has moderate/severe dyspnea (RR >25) OR mod/severe acidosis w a pH <7.2 OR PaCO2 >45 the day time team may consider consulting Pulm to discuss BIPAP / Dunebs Q6H, Albuterol Q1HP, Prednisone + PPI / tessalon pearls for cough / will give not Levofloxacin because the patient has not had a change in her chronic cough/ if she develops /she should be referred Licensed Reactor Operator for repeat PFTs / will place a referral for Pulmonary Rehab which has been shown to reduce mortality if she attends within 90 days of discharge 3 Mild Acute Diastolic CHF Is likley the cause of her elevated BNP and BLE edema Previous Echo in 2017 showed grade 1 DD Plan: f/u Is and Os, daily weights / c/w lasix / trend trops / f/u repeat Echo to r/o pulm HTN and systolic dysfunction 4 LUZ MARIA / Chronic O2 dependent respiratory failure with hypoxia and hypercarbia Plan: nocturnal CPAP w supplemental O2 / continuos pulse ox 5 Erythrocytosis Likely 2/2 chronic hypoxia & tobacco abuse Plan: trend Hg 6 Hyperkalemia EKG showed NSR w rate of 75 Plan: f/u repeat K / hold PO KCl supplement 7 NIDDM Plan: carbohydrate consistent diet / f/u accuchecks & A1C / hypoglycemia protocol / sliding scale insulin / hold oral anti-glycemics 8 Chronic HTN Plan: losartan 9. Recent diagnosis of UTI Plan: complete course of Macrobid 10. Anxiety / Bipolar disorder Plan: Fluoxetine 11. Tobacco Abuse Plan: smoking cessation education 12.Morbidy Obesity BMI 52.4 complicates care Since her BMI >35 + DM she is a candidate for bariatric surgery Plan: she can f/u w her PCP to discuss referal to a Bariatric Surgeon / recommend cardiovascular exercise for 40 min 4-5 days a week DVT PROPHYLAXIS: Lovenox DISPOSITION: likely home after more than 2 midnight's stay Home Medications Scheduled Alprazolam (Alprazolam) 1 Mg Tablet, 1 MG PO TID Fluoxetine Hcl (Fluoxetine HCl) 40 Mg Capsule, 80 MG PO DAILY Glimepiride (Glimepiride) 2 Mg Tab, 2 MG PO DAILY Levothyroxine Sodium (Synthroid) 200 Mcg Tablet, 200 MCG PO QAM Losartan Potassium (Losartan Potassium) 50 Mg Tab, 50 MG PO DAILY Metformin HCl (Metformin HCl) 500 Mg Tablet, 500 MG PO BID Nitrofurantoin Monohyd/M-Cryst (Macrobid 100 mg Capsule) 100 Mg Capsule, 100 MG PO BID for 5 days, started 11/16/19 Potassium Chloride (Potassium Chloride) 8 Meq Tab, 8 MEQ PO TID Scheduled PRN Acetaminophen/Caff/Dihydrocod (Oiuvjyum-Jvnl-Mcmrrltkas 320.5) 1 Cap Cap, 1 CAP PO DAILY PRN for HEADACHE Diphenhydramine HCl (Diphenhydramine HCl) 25 Mg Cap, 25 MG PO Q6H PRN for ALLERGY SYMPTOMS Allergies Coded Allergies: Penicillins (Verified Allergy, Unknown, 11/19/19) cefepime (Verified Adverse Reaction, Unknown, confusion, hallucinations, 11/19/19) A-FIB/CHADSVASC A-FIB History Current/History of A-Fib/PAF?: No Current PO Anticoag Therapy: No ZEUS COVINGTON MD Nov 19, 2019 19:28
[2019-11-19] MEDS ORDERED: ACETAMINOPHEN TAB 650MG DOSE (2X325MG) PO PRN (19:30)
[2019-11-19] MEDS ORDERED: GLUCOSE 4GM CHEW TABLET PO PRN (19:30)
[2019-11-19] MEDS ORDERED: GLUCAGON INJ 1MG VIAL SC PRN (19:30)
[2019-11-19] MEDS ORDERED: DEXTROSE 50% 50 ML SYRINGE IV PRN (19:30)
[2019-11-19] MEDS ORDERED: ALBUTEROL SULFATE 2.5 MG/0.5 ML INH NEB SOLN NEB PRN (19:30)
[2019-11-19] MEDS: IPRATROPIUM 0.5MG/ALBUTEROL 2.5MG INH SOL UD 3ML (DUONEB) NEB SCH (20:00)
[2019-11-19] MEDS: FUROSEMIDE 40MG/4ML VIAL (J1940) IV SCH (20:00)
[2019-11-19 20:21] LABS: POTASSIUM SERUM 5.1 MEQ/L (3.5-5.1); TROPONIN I < 0.02 NG/ML (< 0.10)
[2019-11-19 20:48] LABS: HEMOGLOBIN A1c 5.8 %
[2019-11-19 21:45] VITALS: BP 146/78
[2019-11-19] MEDS: HumaLOG INSULIN (NovoLOG) PER UNIT SC SCH (22:30)
[2019-11-19 23:40] VITALS: O2SAT 91
[2019-11-19] MEDS ORDERED: diphenhydrAMINE 25MG CAP PO PRN (23:45)
[2019-11-20] MEDS: FUROSEMIDE 40MG/4ML VIAL (J1940) IV SCH ×3 (00:19→08:55)
[2019-11-20] MEDS: ALPRAZolam 0.5 MG TAB PO SCH ×4 (00:19→20:41)
[2019-11-20] MEDS: NICOTINE 21MG/24HR 1 EA TRANSDERMAL TD SCH ×2 (00:19→20:41)
[2019-11-20] MEDS: NITROFURANTOIN (MACROBID) 100 MG CAP PO SCH ×3 (00:19→20:41)
[2019-11-20] MEDS: IPRATROPIUM 0.5MG/ALBUTEROL 2.5MG INH SOL UD 3ML (DUONEB) NEB SCH ×4 (00:44→18:09)
[2019-11-20] MEDS ORDERED: BENZONATATE 100 MG CAP PO PRN (01:45)
[2019-11-20] MEDS: LEVOTHYROXINE 100MCG TABLET (0.1MG) PO SCH (05:48)
[2019-11-20 06:00] VITALS: BP 145/81
[2019-11-20 06:28] LABS: VENOUS BASE EXCESS 7.9 (-2.0-2.0); VENOUS HCO3 37.5 MEQ/L (23.0-27.0); VENOUS O2 SATURATION 93.3 % (60.0-80.0); VENOUS PARTIAL PRESSURE CO2 69.8 mmHg (38.0-50.0); VENOUS PARTIAL PRESSURE O2 68.8 mmHg (30.0-50.0); VENOUS PH 7.348 UNITS (7.330-7.430); VENOUS STANDARD HCO3 31.6 MEQ/L; VENOUS TOTAL CO2 39.6 MEQ/L (24.0-28.0)
[2019-11-20 06:33] LABS: HEMATOCRIT 61.9 % (36.0-47.0); HEMOGLOBIN 18.4 g/dl (12.0-15.5); MEAN CORPUSCULAR HEMOGLOBIN 27.5 pg (27.0-33.0); MEAN CORPUSCULAR HGB CONC 29.7 g/dl (32.0-36.5); MEAN CORPUSCULAR VOLUME 92.7 fl (80.0-96.0); PLATELET COUNT, AUTOMATED 223 10^3/uL (150-450); RED BLOOD COUNT 6.68 10^6/uL (4.00-5.40); WHITE BLOOD COUNT 13.8 10^3/uL (4.0-10.0)
[2019-11-20 06:55] LABS: BLOOD UREA NITROGEN 22 MG/DL (7-18); CALCIUM LEVEL 9.1 MG/DL (8.8-10.2); CARBON DIOXIDE LEVEL 38 MEQ/L (21-32); CHLORIDE LEVEL 97 MEQ/L (98-107); CREATININE FOR GFR 0.77 MG/DL (0.55-1.30); GLOMERULAR FILTRATION RATE > 60.0 (>45); GLUCOSE, FASTING 104 MG/DL (70-100); MAGNESIUM LEVEL 2.1 MG/DL (1.8-2.4); POTASSIUM SERUM 4.4 MEQ/L (3.5-5.1); SODIUM LEVEL 141 MEQ/L (136-145)
[2019-11-20] MEDS: HumaLOG INSULIN (NovoLOG) PER UNIT SC SCH ×4 (07:30→20:44)
[2019-11-20] MEDS: FLUoxetine 20 MG CAP PO SCH (08:55)
[2019-11-20] MEDS: predniSONE 20 MG TAB PO SCH (08:56)
[2019-11-20] MEDS: ENOXAPARIN 40MG/0.4ML SYRINGE (J1650 PER 10MG) SC SCH (08:56)
[2019-11-20] MEDS: PANTOPRAZOLE 40MG TAB (PROTONIX) PO SCH (08:56)
[2019-11-20] MEDS: LOSARTAN 50MG TABLET PO SCH (08:56)
[2019-11-20] MEDS: PNEUMOCOCCAL VACCINE 0.5ML SYRINGE (PNEUMOVAX 23) IM ONE ×2 (08:58→09:05)
[2019-11-20 09:00] VITALS: O2SAT 89
--- NOTE | 2019-11-20 10:57 | IPNPDOC ---
Date Seen The patient was seen on 11/20/19. Progress Note SUBJECTIVE: Saturating 88-90% on NC, falling asleep on evaluation with me. Repeat ABG showed to be improved, compensated. No need for bipap. Discussed case with Dr. Haines, pulmonary. It is likely that patient has hypoxia at baseline, chronic hypercapnia likely 2/2 to uncontrolled LUZ MARIA. Will set up with o/p appt with pulmonary. Patient's HCP updated, states she is very noncompliant at home, sl eeps at lot. patient denies chest pain, increased SOB, n/v/d. OBJECTIVE: GEN: well nourished / well developed/ NAD INTEGUMENT: She doesn't have facial plethora HEENT:NCAT / lips are not cyanotic/ she doesn't have pursed lip breathing / NC in place / mucus membranes moist and pink CVS: RRR/ radial pulses intact / + BLE edema LUNGS: there is no nasal flairing / not able to speak full sentences without stopping to take a breath / coughing / not using accessory muscles / there is normal respiratory expansion/ lungs are not hyper resonant on percussion / breath sounds are diminished ABDOMEN: obese MSK/EXTREMITIES: seated up in hospital chair NEURO: CN 2-12 are grossly intact / speech is not dysarthric PSYCH: alert and oriented to person place and time/ able to understand and follow all commands LABORATORY DATA: IMAGING: Chest xray: No acute findings. MICROBIOLOGY: 11/19/19 Blood Culture, Received Pending 11/19/19 Blood Culture, Received Pending ASSESSMENT: Ms. Dong is a 64-year-old with a history of noncompliance, NIDDM, grade 1 diastolic CHF, HTN, LUZ MARIA, COPD, & chronic oxygen dependence with hypoxia and hypercarbia who presented with confusion; she was found to be hypercarbic and hypoxic and her BNP had increased from 1500 to greater than 6400. Her mental status improved after she received duo nebs, Lasix, and Solu-Medrol. Admitted for management of acute COPD and acute diastolic CHF. PLAN: # Acute on chronic hypercapnic respiratory failure likely 2/2 to uncontrolled LUZ MARIA, acute COPD exacerbation. -Please see individual treatment plans below #. Acute COPD exacerbation -Currently saturating 88-90% on 4 L NC -Improved blood gas -Wheezing improved, decreased breath sounds bilaterally -C/w Duonebs Q6H, Albuterol Q1HP, Prednisone + PPI / tessalon pearls for cough. # Mild Acute Diastolic CHF -Is lisaley the cause of her elevated BNP and BLE edema -Previous Echo in 2017 showed grade 1 DD -F/u repeat echo, monitor daily wts -C/w lasix #LUZ MARIA, uncontrolled. -Noncompliant with CPAP. Morbid obesity, increased daytime somnolence not new per HCP but has been worsening -uses nocturnal CPAP w supplemental O2 currently -needs repeat sleep study per pulmonary as o/p -Will set patient up prior to discharge. -continuos pulse ox # Erythrocytosis Likely 2/2 chronic hypoxia & tobacco abuse -Monitor CBC # Hyperkalemia -WNl -F/u labs # NIDDM - C/w carbohydrate consistent diet / f/u accuchecks & A1C / hypoglycemia protocol / sliding scale insulin / hold oral anti-glycemics # Chronic HTN -C/w losartan #Recent diagnosis of UTI - complete course of Macrobid #Anxiety / Bipolar disorder -C/w fluoxetine # Tobacco Abuse Plan: smoking cessation education #Morbidy Obesity -BMI 52.4 complicates care -Since her BMI >35 + DM she is a candidate for bariatric surgery -She can f/u w her PCP to discuss referal to a Bariatric Surgeon / recommend cardiovascular exercise for 40 min 4-5 days a week #Falls at home likely 2/2 to hypercapnia, weakness -PT/OT # DVT PROPHYLAXIS: Lovenox DISPOSITION: Currently inpatient status. Plan undetermined currently for discharge. VS, I&O, 24H, Fishbone Vital Signs/I&O Vital Signs Date Time Temp Pulse Resp B/P (MAP) Pulse Ox O2 Delivery O2 Flow Rate FiO2 11/20/19 08:56 146/79 11/20/19 06:00 98.8 82 22 88 Nasal Cannula 4.0 I&O- Last 24 Hours up to 6 AM 11/20/19 06:00 Intake Total 780 ml Output Total 5700 ml Balance -4920 ml Laboratory Data 24H LABS Laboratory Tests 2 11/19/19 13:48: Immature Granulocyte % (Auto) 0.8, Neutrophils (%) (Auto) 77.2H, Lymphocytes (%) (Auto) 13.0L, Monocytes (%) (Auto) 7.9H, Eosinophils (%) (Auto) 0.3, Basophils (%) (Auto) 0.8, Neutrophils # (Auto) 8.2, Lymphocytes # (Auto) 1.4L, Monocytes # (Auto) 0.8, Eosinophils # (Auto) 0.0, Basophils # (Auto) 0.1, Nucleated Red Blood Cells % (auto) 0.2H, Blood Gas Bicarbonate Standard 26.7, Venous Blood pH 7.274L, Venous Blood Partial Pressure CO2 72.0H, Venous Blood Partial Pressure O2 76.7H, Venous Blood Total Carbon Dioxide 34.8H, Venous Blood HCO3 32.6H, Venous Blood Oxygen Saturation 94.9H, Venous Blood Base Excess 2.6H, Anion Gap 5L, Glomerular Filtration Rate > 60.0, Calcium Level 8.9, Total Bilirubin 0.7, Direct Bilirubin 0.2, Aspartate Amino Transf (AST/SGOT) 9, Alanine Aminotransferase (ALT/SGPT) 20, Alkaline Phosphatase 117, Total Creatine Kinase 31, Creatine Kinase MB 1.2, Creatine Kinase MB Relative Index 3.87, Troponin I < 0.02, SV-Tpe-U-Type Natriuretic Peptide 6413H, Total Protein 7.0, Albumin 3.3, Albumin/Globulin Ratio 0.9L, Thyroid Stimulating Hormone (TSH) 0.511, Thyroxine (T4) 10.4 11/19/19 19:52: Troponin I < 0.02, Estimated Mean Plasma Glucose 120H, Hemoglobin A1c 5.8 11/19/19 22:15: Bedside Glucose (Misc Panel) 188H 11/20/19 01:46: Troponin I < 0.02 11/20/19 06:22: Nucleated Red Blood Cells % (auto) 0.0, Blood Gas Bicarbonate Standard 31.6, Venous Blood pH 7.348, Venous Blood Partial Pressure CO2 69.8H, Venous Blood Partial Pressure O2 68.8H, Venous Blood Total Carbon Dioxide 39.6H, Venous Blood HCO3 37.5H, Venous Blood Oxygen Saturation 93.3H, Venous Blood Base Excess 7.9H, Anion Gap 6L, Glomerular Filtration Rate > 60.0, Calcium Level 9.1, Magnesium Level 2.1 CBC/BMP Laboratory Tests 11/19/19 13:48 11/19/19 19:52 11/20/19 06:22 Microbiology Microbiology 11/19/19 Respiratory Virus Panel (PCR) (ANUJA) - Final, Complete 11/19/19 Blood Culture, Received Pending 11/19/19 Blood Culture, Received Pending Current Medications Current Medications Medications (Trade) Dose Ordered Sig/Dian Route PRN Reason Start Time Stop Time Status Last Admin Dose Admin Acetaminophen (Tylenol Tab) 650 mg Q4H PRN PO PAIN OR FEVER 11/19/19 19:30 Albuterol Sulfate (Proventil Neb) 2.5 mg Q1HP PRN NEB SHORTNESS OF BREATH 11/19/19 19:30 Albuterol/ Ipratropium (Combivent Respimat 100-20mcg) 4 puff Q20M INH 11/19/19 13:45 11/19/19 14:26 DC 11/19/19 14:48 Albuterol/ Ipratropium (Duoneb (Ipr 0.5mg/Alb 2.5mg)) 3 ml RQ6H NEB 11/19/19 20:00 11/20/19 13:52 Alprazolam (Xanax) 1 mg TID PO 11/19/19 23:45 11/20/19 08:55 Benzonatate (Tessalon Perles) 200 mg Q8HP PRN PO COUGH 11/20/19 01:45 Dextrose (Dextrose 50%) 25 ml ASDIRECTED PRN IV SEE LABEL COMMENTS 11/19/19 19:30 Diphenhydramine HCl (Benadryl) 25 mg Q6H PRN PO ALLERGY SYMPTOMS 11/19/19 23:45 11/20/19 01:55 DC Enoxaparin Sodium (Lovenox) 40 mg DAILY SC 11/20/19 09:00 11/20/19 08:56 Fluoxetine HCl (PROzac) 80 mg DAILY PO 11/20/19 09:00 11/20/19 08:55 Furosemide (LASIX injection) 40 mg Q4H IV 11/19/19 20:00 11/20/19 10:47 DC 11/20/19 08:55 Furosemide (LASIX injection) 60 mg Q12H IV 11/20/19 12:00 11/20/19 12:58 Glucagon (Glucagon) 1 mg ASDIRECTED PRN SC SEE LABEL COMMENTS 11/19/19 19:30 Glucose (Glucose) 16 GM ASDIRECTED PRN PO SEE LABEL COMMENTS 11/19/19 19:30 Home Med (Med Rec Complete!) ASDIRECTED XX 11/19/19 18:30 11/19/19 18:21 DC Insulin Human Lispro (HumaLOG INSULIN) See Protocol Table AC SC 11/20/19 07:30 11/20/19 12:58 Insulin Human Lispro (HumaLOG INSULIN) See Protocol Table QHS SC 11/19/19 21:00 Levothyroxine Sodium (Synthroid) 200 mcg DAILY@0600 PO 11/20/19 06:00 11/20/19 05:48 Losartan Potassium (Cozaar) 50 mg DAILY PO 11/20/19 09:00 11/20/19 08:56 Magnesium Hydroxide (Milk Of Magnesia) 30 ml DAILY PRN PO CONSTIPATION 11/19/19 19:30 Nicotine (Nicoderm Cq 21mg) 1 patch QHS TD 11/19/19 23:45 11/20/19 00:19 Nitrofurantoin Monoh/Nitrofur Macro (Macrobid) 100 mg BID PO 11/19/19 23:45 11/20/19 08:56 Pantoprazole Sodium (Protonix) 40 mg DAILY PO 11/20/19 09:00 11/20/19 08:56 Prednisone (Deltasone) 40 mg DAILY PO 11/20/19 09:00 11/20/19 08:56 Allergies Coded Allergies: Penicillins (Verified Allergy, Unknown, 11/19/19) cefepime (Verified Adverse Reaction, Unknown, confusion, hallucinations, 11/19/19) Kasey Toro MD Nov 20, 2019 10:57
[2019-11-20] MEDS: FUROSEMIDE 100MG/10ML VIAL (J1940) IV SCH (12:58)
[2019-11-20 14:00] VITALS: BP 113/61
--- NOTE | 2019-11-20 20:48 | ECGEPIP ---
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
[2019-11-20 22:00] VITALS: BP 115/62
[2019-11-20] MEDS: IBUPROFEN 400 MG TAB PO SCH (22:13)
[2019-11-20 22:34] VITALS: O2SAT 90
[2019-11-21] MEDS: FUROSEMIDE 100MG/10ML VIAL (J1940) IV SCH ×2 (00:12→08:39)
[2019-11-21] MEDS: IPRATROPIUM 0.5MG/ALBUTEROL 2.5MG INH SOL UD 3ML (DUONEB) NEB SCH ×4 (01:32→19:21)
[2019-11-21] MEDS: LEVOTHYROXINE 100MCG TABLET (0.1MG) PO SCH (05:36)
[2019-11-21] MEDS: IBUPROFEN 400 MG TAB PO SCH ×3 (05:37→21:02)
[2019-11-21 06:00] VITALS: BP 126/76
[2019-11-21 06:11] LABS: HEMATOCRIT 62.3 % (36.0-47.0); HEMOGLOBIN 18.3 g/dl (12.0-15.5); MEAN CORPUSCULAR HEMOGLOBIN 27.4 pg (27.0-33.0); MEAN CORPUSCULAR HGB CONC 29.4 g/dl (32.0-36.5); MEAN CORPUSCULAR VOLUME 93.4 fl (80.0-96.0); PLATELET COUNT, AUTOMATED 212 10^3/uL (150-450); RED BLOOD COUNT 6.67 10^6/uL (4.00-5.40); WHITE BLOOD COUNT 13.3 10^3/uL (4.0-10.0)
[2019-11-21 06:42] LABS: ALBUMIN 3.3 GM/DL (3.2-5.2); ALT/SGPT 20 U/L (12-78); BILIRUBIN,TOTAL 0.7 MG/DL (0.2-1.0); BLOOD UREA NITROGEN 32 MG/DL (7-18); CARBON DIOXIDE LEVEL 44 MEQ/L (21-32); CHLORIDE LEVEL 93 MEQ/L (98-107); CREATININE FOR GFR 0.92 MG/DL (0.55-1.30); GLOMERULAR FILTRATION RATE > 60.0 (>45); GLUCOSE, FASTING 70 MG/DL (70-100); NT-PRO BNP 683 PG/ML (<125); POTASSIUM SERUM 3.7 MEQ/L (3.5-5.1); SODIUM LEVEL 142 MEQ/L (136-145)
[2019-11-21] MEDS: HumaLOG INSULIN (NovoLOG) PER UNIT SC SCH ×4 (07:30→19:59)
[2019-11-21] MEDS: predniSONE 20 MG TAB PO SCH (08:40)
[2019-11-21] MEDS: LEVEMIR (INSULIN DETEMIR) 1 UNITS/0.01ML SC SCH (08:40)
[2019-11-21] MEDS: NITROFURANTOIN (MACROBID) 100 MG CAP PO SCH ×2 (08:40→21:01)
[2019-11-21] MEDS: ALPRAZolam 0.5 MG TAB PO SCH ×3 (08:40→21:01)
[2019-11-21] MEDS: PANTOPRAZOLE 40MG TAB (PROTONIX) PO SCH (08:40)
[2019-11-21] MEDS: FLUoxetine 20 MG CAP PO SCH (08:40)
[2019-11-21] MEDS: ENOXAPARIN 40MG/0.4ML SYRINGE (J1650 PER 10MG) SC SCH (08:41)
[2019-11-21] MEDS: LOSARTAN 50MG TABLET PO SCH (08:41)
[2019-11-21 09:00] VITALS: O2SAT 91
--- NOTE | 2019-11-21 12:34 | IPNPDOC ---
Date Seen The patient was seen on 11/21/19. Progress Note SUBJECTIVE: Still saturating 88-90% on 4 L NC, more AA this AM. PT/OT today. Seeing how much oxygen patient will require with ambulation. Likelihood that patient will need ATC oxygen is high. -7.1 L fluid with diuresis since admission, decreased lasix dose, improved BNP. Currently denies chest pain, increased SOB, n/v/d. OBJECTIVE: PHYSICAL EXAM: VS: Please see below GEN: NAD, resting in bed INTEGUMENT: Intact, no rashes, lesions, normal skin turgor HEENT:NC/AT, EOM intact, PERRLA, lips are not cyanotic, NC in place CVS: S1S2 +, no M/R/G LUNGS: Decreased BS b/l, no W/R/R ABDOMEN: obese, soft, nontender, nondistended, BS + 4 quadrants EXTREMITIES: no edema, swelling or cyanosis. NEURO: CN 2-12 are grossly intact, no focal deficits. PSYCH: mood and affect appropriate LABORATORY DATA: IMAGING: Chest xray: No acute findings. MICROBIOLOGY: 11/19/19 Blood Cultures x 2 sets: NG at 24 hours ASSESSMENT: Ms. Dong is a 64-year-old with a history of noncompliance, NIDDM, grade 1 diastolic CHF, HTN, LUZ MARIA, COPD, & chronic oxygen dependence with hypoxia and hypercarbia who presented with confusion admitted for management of acute COPD and acute diastolic CHF. PLAN: # Acute on chronic hypercapnic respiratory failure likely 2/2 to uncontrolled LUZ MARIA, acute COPD exacerbation. -Please see individual treatment plans below #. Acute COPD exacerbation- improved -Currently saturating 88-90% on 4 L NC, believed to be close to what the patient likely needs at baseline. -Wheezing improved, decreased breath sounds bilaterally -C/w Duonebs Q6H, Albuterol Q1HP, Prednisone, tessalon pearls -Walking desaturation test prior to discharge to see how much O2 patient will need at home # Mild Acute Diastolic CHF -Neg 7.1 L of fluid since admission with diuresis -BNP improved from >6K to 600 today -Is likely the cause of her elevated BNP and BLE edema -Previous Echo in 2017 showed grade 1 DD -F/u repeat echo, monitor daily wts -Decreased amount of lasix, c/w lasix Qdaily now #LUZ MARIA, uncontrolled. -Noncompliant with CPAP. Morbid obesity, increased daytime somnolence not new per HCP but has been worsening -uses nocturnal CPAP w supplemental O2 currently -needs repeat sleep study per pulmonary as o/p -Will set patient up prior to discharge. -continuos pulse ox # Erythrocytosis Likely 2/2 chronic hypoxia & tobacco abuse -Monitor CBC # NIDDM - C/w carbohydrate consistent diet / f/u accuchecks & A1C / hypoglycemia protocol / sliding scale insulin / hold oral anti-glycemics # Chronic HTN -C/w losartan #Recent diagnosis of UTI - complete course of Macrobid #Anxiety / Bipolar disorder -C/w fluoxetine # Tobacco Abuse Plan: smoking cessation education #Morbidy Obesity -BMI 52.4 complicates care -Since her BMI >35 + DM she is a candidate for bariatric surgery -She can f/u w her PCP to discuss referal to a Bariatric Surgeon / recommend cardiovascular exercise for 40 min 4-5 days a week #Falls at home likely 2/2 to hypercapnia, weakness -PT/OT # DVT PROPHYLAXIS: Lovenox DISPOSITION: Currently inpatient status. Plan undetermined currently for disch arge. VS, I&O, 24H, Fishbone Vital Signs/I&O Vital Signs Date Time Temp Pulse Resp B/P (MAP) Pulse Ox O2 Delivery O2 Flow Rate FiO2 11/21/19 09:00 4.0 11/21/19 09:00 91 Nasal Cannula 11/21/19 08:41 123/76 11/21/19 06:00 97.7 76 20 I&O- Last 24 Hours up to 6 AM 11/21/19 06:00 Intake Total 2130 ml Output Total 4425 ml Balance -2295 ml Laboratory Data 24H LABS Laboratory Tests 2 11/20/19 17:38: Bedside Glucose (Misc Panel) 147H 11/20/19 20:42: Bedside Glucose (Misc Panel) 224H 11/21/19 05:24: Nucleated Red Blood Cells % (auto) 0.0, Anion Gap 5L, Glomerular Filtration Rate > 60.0, Calcium Level 9.0, Total Bilirubin 0.7, Aspartate Amino Transf (AST/SGOT) 15, Alanine Aminotransferase (ALT/SGPT) 20, Alkaline Phosphatase 109, DT-Xxj-F-Type Natriuretic Peptide 683H, Total Protein 7.0, Albumin 3.3, Albumin/Globulin Ratio 0.9L 11/21/19 11:23: Bedside Glucose (Misc Panel) 165H CBC/BMP Laboratory Tests 11/21/19 05:24 Microbiology Microbiology 11/19/19 Respiratory Virus Panel (PCR) (ANUJA) - Final, Complete 11/19/19 Blood Culture - Preliminary, Resulted No growth after 24 hours . All specim... 11/19/19 Blood Culture - Preliminary, Resulted No growth after 24 hours . All specim... Current Medications Current Medications Medications (Trade) Dose Ordered Sig/Dian Route PRN Reason Start Time Stop Time Status Last Admin Dose Admin Acetaminophen (Tylenol Tab) 650 mg Q4H PRN PO PAIN OR FEVER 11/19/19 19:30 Albuterol Sulfate (Proventil Neb) 2.5 mg Q1HP PRN NEB SHORTNESS OF BREATH 11/19/19 19:30 Albuterol/ Ipratropium (Combivent Respimat 100-20mcg) 4 puff Q20M INH 11/19/19 13:45 11/19/19 14:26 DC 11/19/19 14:48 Albuterol/ Ipratropium (Duoneb (Ipr 0.5mg/Alb 2.5mg)) 3 ml RQ6H NEB 11/19/19 20:00 11/21/19 07:14 Alprazolam (Xanax) 1 mg TID PO 11/19/19 23:45 11/21/19 08:40 Benzonatate (Tessalon Perles) 200 mg Q8HP PRN PO COUGH 11/20/19 01:45 Dextrose (Dextrose 50%) 25 ml ASDIRECTED PRN IV SEE LABEL COMMENTS 11/19/19 19:30 Diphenhydramine HCl (Benadryl) 25 mg Q6H PRN PO ALLERGY SYMPTOMS 11/19/19 23:45 11/20/19 01:55 DC Enoxaparin Sodium (Lovenox) 40 mg DAILY SC 11/20/19 09:00 11/21/19 08:41 Fluoxetine HCl (PROzac) 80 mg DAILY PO 11/20/19 09:00 11/21/19 08:40 Furosemide (LASIX injection) 40 mg Q4H IV 11/19/19 20:00 11/20/19 10:47 DC 11/20/19 08:55 Furosemide (LASIX injection) 60 mg DAILY IV 11/21/19 09:00 11/21/19 08:39 Furosemide (LASIX injection) 60 mg Q12H IV 11/20/19 12:00 11/21/19 08:05 DC 11/21/19 00:12 Glucagon (Glucagon) 1 mg ASDIRECTED PRN SC SEE LABEL COMMENTS 11/19/19 19:30 Glucose (Glucose) 16 GM ASDIRECTED PRN PO SEE LABEL COMMENTS 11/19/19 19:30 Home Med (Med Rec Complete!) ASDIRECTED XX 11/19/19 18:30 11/19/19 18:21 DC Ibuprofen (Advil) 400 mg Q8H PO 11/20/19 22:00 11/21/19 05:37 Insulin Detemir (Levemir Insulin) 8 units QAM SC 11/21/19 09:00 11/21/19 08:40 Insulin Human Lispro (HumaLOG INSULIN) See Protocol Table AC SC 11/20/19 07:30 11/20/19 17:58 Insulin Human Lispro (HumaLOG INSULIN) See Protocol Table QHS SC 11/19/19 21:00 Levothyroxine Sodium (Synthroid) 200 mcg DAILY@0600 PO 11/20/19 06:00 11/21/19 05:36 Losartan Potassium (Cozaar) 50 mg DAILY PO 11/20/19 09:00 11/21/19 08:41 Magnesium Hydroxide (Milk Of Magnesia) 30 ml DAILY PRN PO CONSTIPATION 11/19/19 19:30 Nicotine (Nicoderm Cq 21mg) 1 patch QHS TD 11/19/19 23:45 11/20/19 20:41 Nitrofurantoin Monoh/Nitrofur Macro (Macrobid) 100 mg BID PO 11/19/19 23:45 11/21/19 08:40 Pantoprazole Sodium (Protonix) 40 mg DAILY PO 11/20/19 09:00 11/21/19 08:40 Prednisone (Deltasone) 40 mg DAILY PO 11/20/19 09:00 11/21/19 08:40 Allergies Coded Allergies: Penicillins (Verified Allergy, Unknown, 11/19/19) cefepime (Verified Adverse Reaction, Unknown, confusion, hallucinations, 11/19/19) Kasey Toro MD Nov 21, 2019 12:34
[2019-11-21 14:00] VITALS: BP 109/59
[2019-11-21] MEDS: NICOTINE 21MG/24HR 1 EA TRANSDERMAL TD SCH (21:03)
[2019-11-21 22:00] VITALS: BP 103/59
[2019-11-22] MEDS: IPRATROPIUM 0.5MG/ALBUTEROL 2.5MG INH SOL UD 3ML (DUONEB) NEB SCH ×4 (01:55→19:05)
[2019-11-22 04:51] VITALS: O2SAT 90
[2019-11-22] MEDS: IBUPROFEN 400 MG TAB PO SCH ×3 (05:45→20:47)
[2019-11-22] MEDS: LEVOTHYROXINE 100MCG TABLET (0.1MG) PO SCH (05:45)
[2019-11-22 06:00] VITALS: BP 121/74
[2019-11-22 06:33] LABS: HEMATOCRIT 61.4 % (36.0-47.0); HEMOGLOBIN 18.2 g/dl (12.0-15.5); MEAN CORPUSCULAR HEMOGLOBIN 27.6 pg (27.0-33.0); MEAN CORPUSCULAR HGB CONC 29.6 g/dl (32.0-36.5); PLATELET COUNT, AUTOMATED 200 10^3/uL (150-450); WHITE BLOOD COUNT 12.1 10^3/uL (4.0-10.0)
[2019-11-22 06:58] LABS: ALBUMIN 3.2 GM/DL (3.2-5.2); ALT/SGPT 19 U/L (12-78); BILIRUBIN,TOTAL 0.8 MG/DL (0.2-1.0); BLOOD UREA NITROGEN 30 MG/DL (7-18); CALCIUM LEVEL 9.2 MG/DL (8.8-10.2); CARBON DIOXIDE LEVEL 42 MEQ/L (21-32); CHLORIDE LEVEL 96 MEQ/L (98-107); CREATININE FOR GFR 0.73 MG/DL (0.55-1.30); GLOMERULAR FILTRATION RATE > 60.0 (>45); GLUCOSE, FASTING 70 MG/DL (70-100); POTASSIUM SERUM 3.7 MEQ/L (3.5-5.1); SODIUM LEVEL 143 MEQ/L (136-145); TOTAL PROTEIN 6.7 GM/DL (6.4-8.2)
[2019-11-22 07:22] VITALS: O2SAT 95
[2019-11-22] MEDS: HumaLOG INSULIN (NovoLOG) PER UNIT SC SCH ×4 (07:30→21:00)
[2019-11-22 09:00] VITALS: O2SAT 93
[2019-11-22] MEDS: FUROSEMIDE 100MG/10ML VIAL (J1940) IV SCH (09:29)
[2019-11-22] MEDS: ENOXAPARIN 40MG/0.4ML SYRINGE (J1650 PER 10MG) SC SCH (09:29)
[2019-11-22] MEDS: PANTOPRAZOLE 40MG TAB (PROTONIX) PO SCH (09:30)
[2019-11-22] MEDS: LEVEMIR (INSULIN DETEMIR) 1 UNITS/0.01ML SC SCH (09:30)
[2019-11-22] MEDS: FLUoxetine 20 MG CAP PO SCH (09:30)
[2019-11-22] MEDS: ALPRAZolam 0.5 MG TAB PO SCH ×3 (09:30→20:46)
[2019-11-22] MEDS: predniSONE 20 MG TAB PO SCH (09:30)
[2019-11-22] MEDS: NITROFURANTOIN (MACROBID) 100 MG CAP PO SCH ×2 (09:30→20:46)
[2019-11-22] MEDS: LOSARTAN 50MG TABLET PO SCH (09:32)
[2019-11-22 14:00] VITALS: BP 145/86
--- NOTE | 2019-11-22 16:09 | IPNPDOC ---
Date Seen The patient was seen on 11/22/19. Progress Note SUBJECTIVE: Neg 1.7 L/24hrs. Decreased to 84% on 4 L NC with ambulation. Saturating well on on 4 L NC (goal >88%). Echo to be done today. PT: unsafe to return home, would benefit from additional 1-2 days of therapy. Currently denies chest pain, increased SOB, n/v/d. OBJECTIVE: PHYSICAL EXAM: VS: Please see below GEN: NAD, resting in bed INTEGUMENT: Intact, no rashes, lesions, normal skin turgor HEENT:NC/AT, EOM intact, PERRLA, lips are not cyanotic, NC in place CVS: S1S2 +, no M/R/G LUNGS: Decreased BS b/l, no W/R/R ABDOMEN: obese, soft, nontender, nondistended, BS + 4 quadrants EXTREMITIES: +1 pitting edema b/l lower ext, No cyanosis. NEURO: CN 2-12 are grossly intact, no focal deficits. PSYCH: mood and affect appropriate LABORATORY DATA: IMAGING: Chest xray: No acute findings. MICROBIOLOGY: 11/19/19 Blood Cultures x 2 sets: NG at 24 hours ASSESSMENT: Ms. Dong is a 64-year-old with a history of noncompliance, NIDDM, grade 1 diastolic CHF, HTN, LUZ MARIA, COPD, & chronic oxygen dependence with hypoxia and hypercarbia who presented with confusion admitted for management of acute COPD and acute diastolic CHF. PLAN: # Acute on chronic hypercapnic respiratory failure likely 2/2 to uncontrolled LUZ MARIA, acute COPD exacerbation. -Please see individual treatment plans below #. Acute COPD exacerbation- improved -Currently saturating well on 4 L NC, believed to be close to what the patient likely needs at baseline at rest. Drops to low 80's with activity on 4 L NC, will need home O2 arranged. -Wheezing resolved, decreased breath sounds bilaterally -C/w Duonebs Q6H, Albuterol Q1HP. Transition to oral prednisone, tessalon pearls -Walking desaturation test prior to discharge to see how much O2 patient will need at home # Mild Acute Diastolic CHF -Neg 1.7 L/24 hrs, improved aeration, improved b/l lower ext edema -BNP improved from >6K to 600 -Previous Echo in 2017 showed grade 1 DD -F/u repeat echo, monitor daily wts -C/w lasix Qdaily now #LUZ MARIA, uncontrolled. -Noncompliant with CPAP. Morbid obesity, increased daytime somnolence not new per HCP but has been worsening -Supposed to use nocturnal CPAP w supplemental O2 currently -needs repeat sleep study per pulmonary as o/p -Will set patient up prior to discharge. -continuos pulse ox # Erythrocytosis Likely 2/2 chronic hypoxia & tobacco abuse -Monitor CBC # NIDDM - C/w carbohydrate consistent diet / f/u accuchecks & A1C / hypoglycemia protocol / sliding scale insulin / hold oral anti-glycemics # Chronic HTN -C/w losartan #Recent diagnosis of UTI - complete course of Macrobid #Anxiety / Bipolar disorder -C/w fluoxetine # Tobacco Abuse Plan: smoking cessation education #Morbidy Obesity -BMI 52.4 complicates care -Since her BMI >35 + DM she is a candidate for bariatric surgery -She can f/u w her PCP to discuss referral to a Bariatric Surgeon / recommend cardiovascular exercise for 40 min 4-5 days a week #Falls at home likely 2/2 to hypercapnia, weakness -PT/OT # DVT PROPHYLAXIS: Lovenox DISPOSITION: Currently inpatient status. Plan is home after echo results, additional PT as recommended and setting up home O2. VS, I&O, 24H, [facility] Vital Signs/I&O Vital Signs Date Time Temp Pulse Resp B/P (MAP) Pulse Ox O2 Delivery O2 Flow Rate FiO2 11/22/19 14:00 98.4 88 20 145/86 (105) 89 Nasal Cannula 2.0 I&O- Last 24 Hours up to 6 AM 11/22/19 06:00 Intake Total 1760 ml Output Total 2450 ml Balance -690 ml Laboratory Data 24H LABS Laboratory Tests 2 11/21/19 16:23: Bedside Glucose (Misc Panel) 261H 11/21/19 19:56: Bedside Glucose (Misc Panel) 123H 11/22/19 05:35: Anion Gap 5L, Glomerular Filtration Rate > 60.0, Calcium Level 9.2, Total Bilirubin 0.8, Aspartate Amino Transf (AST/SGOT) 13, Alanine Aminotransferase (ALT/SGPT) 19, Alkaline Phosphatase 99, Total Protein 6.7, Albumin 3.2, Albumin/Globulin Ratio 0.9L 11/22/19 05:36: Nucleated Red Blood Cells % (auto) 0.0 11/22/19 12:09: Bedside Glucose (Misc Panel) 135H CBC/BMP Laboratory Tests 11/22/19 05:35 11/22/19 05:36 Microbiology Microbiology 11/19/19 Respiratory Virus Panel (PCR) (ANUJA) - Final, Complete 11/19/19 Blood Culture - Preliminary, Resulted No Growth after 72 hours. All specime... 11/19/19 Blood Culture - Preliminary, Resulted No Growth after 72 hours. All specime... Current Medications Current Medications Medications (Trade) Dose Ordered Sig/Dian Route PRN Reason Start Time Stop Time Status Last Admin Dose Admin Acetaminophen (Tylenol Tab) 650 mg Q4H PRN PO PAIN OR FEVER 11/19/19 19:30 Albuterol Sulfate (Proventil Neb) 2.5 mg Q1HP PRN NEB SHORTNESS OF BREATH 11/19/19 19:30 Albuterol/ Ipratropium (Combivent Respimat 100-20mcg) 4 puff Q20M INH 11/19/19 13:45 11/19/19 14:26 DC 11/19/19 14:48 Albuterol/ Ipratropium (Duoneb (Ipr 0.5mg/Alb 2.5mg)) 3 ml RQ6H NEB 11/19/19 20:00 11/22/19 14:48 Alprazolam (Xanax) 1 mg TID PO 11/19/19 23:45 11/22/19 15:21 Benzonatate (Tessalon Perles) 200 mg Q8HP PRN PO COUGH 11/20/19 01:45 Dextrose (Dextrose 50%) 25 ml ASDIRECTED PRN IV SEE LABEL COMMENTS 11/19/19 19:30 Diphenhydramine HCl (Benadryl) 25 mg Q6H PRN PO ALLERGY SYMPTOMS 11/19/19 23:45 11/20/19 01:55 DC Enoxaparin Sodium (Lovenox) 40 mg DAILY SC 11/20/19 09:00 11/22/19 09:29 Fluoxetine HCl (PROzac) 80 mg DAILY PO 11/20/19 09:00 11/22/19 09:30 Furosemide (LASIX injection) 40 mg Q4H IV 11/19/19 20:00 11/20/19 10:47 DC 11/20/19 08:55 Furosemide (LASIX injection) 60 mg DAILY IV 11/21/19 09:00 11/22/19 09:29 Furosemide (LASIX injection) 60 mg Q12H IV 11/20/19 12:00 11/21/19 08:05 DC 11/21/19 00:12 Glucagon (Glucagon) 1 mg ASDIRECTED PRN SC SEE LABEL COMMENTS 11/19/19 19:30 Glucose (Glucose) 16 GM ASDIRECTED PRN PO SEE LABEL COMMENTS 11/19/19 19:30 Home Med (Med Rec Complete!) ASDIRECTED XX 11/19/19 18:30 11/19/19 18:21 DC Ibuprofen (Advil) 400 mg Q8H PO 11/20/19 22:00 11/22/19 05:45 Insulin Detemir (Levemir Insulin) 8 units QAM SC 11/21/19 09:00 11/22/19 09:30 Insulin Human Lispro (HumaLOG INSULIN) See Protocol Table AC SC 11/20/19 07:30 11/22/19 12:18 Insulin Human Lispro (HumaLOG INSULIN) See Protocol Table QHS SC 11/19/19 21:00 Levothyroxine Sodium (Synthroid) 200 mcg DAILY@0600 PO 11/20/19 06:00 11/22/19 05:45 Losartan Potassium (Cozaar) 50 mg DAILY PO 11/20/19 09:00 11/22/19 09:32 Magnesium Hydroxide (Milk Of Magnesia) 30 ml DAILY PRN PO CONSTIPATION 11/19/19 19:30 Nicotine (Nicoderm Cq 21mg) 1 patch QHS TD 11/19/19 23:45 11/21/19 21:03 Nitrofurantoin Monoh/Nitrofur Macro (Macrobid) 100 mg BID PO 11/19/19 23:45 11/22/19 09:30 Pantoprazole Sodium (Protonix) 40 mg DAILY PO 11/20/19 09:00 11/22/19 09:30 Prednisone (Deltasone) 40 mg DAILY PO 11/20/19 09:00 11/22/19 09:30 Allergies Coded Allergies: Penicillins (Verified Allergy, Unknown, 11/19/19) cefepime (Verified Adverse Reaction, Unknown, confusion, hallucinations, 11/19/19) Kasey Toro MD Nov 22, 2019 16:09
[2019-11-22] MEDS: MOM 30ML SUSPENSION UDC PO PRN (17:26)
[2019-11-22] MEDS: NICOTINE 21MG/24HR 1 EA TRANSDERMAL TD SCH (20:46)
[2019-11-22 22:00] VITALS: BP 110/50
[2019-11-23] VITALS (7 sets, daily range): BP systolic 103–115; BP diastolic 49–69; O2SAT 79–89
[2019-11-23] MEDS: IPRATROPIUM 0.5MG/ALBUTEROL 2.5MG INH SOL UD 3ML (DUONEB) NEB SCH ×4 (02:00→19:49)
[2019-11-23] MEDS: IBUPROFEN 400 MG TAB PO SCH ×3 (05:40→23:16)
[2019-11-23] MEDS: LEVOTHYROXINE 100MCG TABLET (0.1MG) PO SCH (05:40)
[2019-11-23 06:18] LABS: HEMATOCRIT 58.2 % (36.0-47.0); HEMOGLOBIN 17.5 g/dl (12.0-15.5); MEAN CORPUSCULAR HEMOGLOBIN 27.4 pg (27.0-33.0); MEAN CORPUSCULAR HGB CONC 30.1 g/dl (32.0-36.5); MEAN CORPUSCULAR VOLUME 91.2 fl (80.0-96.0); PLATELET COUNT, AUTOMATED 181 10^3/uL (150-450); RED BLOOD COUNT 6.38 10^6/uL (4.00-5.40); WHITE BLOOD COUNT 10.9 10^3/uL (4.0-10.0)
[2019-11-23 06:41] LABS: ALBUMIN 3.2 GM/DL (3.2-5.2); ALT/SGPT 25 U/L (12-78); BILIRUBIN,TOTAL 0.9 MG/DL (0.2-1.0); BLOOD UREA NITROGEN 30 MG/DL (7-18); CALCIUM LEVEL 9.2 MG/DL (8.8-10.2); CARBON DIOXIDE LEVEL 41 MEQ/L (21-32); CHLORIDE LEVEL 95 MEQ/L (98-107); CREATININE FOR GFR 0.73 MG/DL (0.55-1.30); GLOMERULAR FILTRATION RATE > 60.0 (>45); GLUCOSE, FASTING 78 MG/DL (70-100); POTASSIUM SERUM 3.6 MEQ/L (3.5-5.1); SODIUM LEVEL 139 MEQ/L (136-145); TOTAL PROTEIN 6.5 GM/DL (6.4-8.2)
[2019-11-23] MEDS: HumaLOG INSULIN (NovoLOG) PER UNIT SC SCH ×4 (07:26→20:35)
[2019-11-23] MEDS: LEVEMIR (INSULIN DETEMIR) 1 UNITS/0.01ML SC SCH (08:59)
[2019-11-23] MEDS: ENOXAPARIN 40MG/0.4ML SYRINGE (J1650 PER 10MG) SC SCH (09:00)
[2019-11-23] MEDS: ALPRAZolam 0.5 MG TAB PO SCH ×3 (09:00→20:35)
[2019-11-23] MEDS: NITROFURANTOIN (MACROBID) 100 MG CAP PO SCH (09:00)
[2019-11-23] MEDS: PANTOPRAZOLE 40MG TAB (PROTONIX) PO SCH (09:00)
[2019-11-23] MEDS: LOSARTAN 50MG TABLET PO SCH (09:02)
[2019-11-23] MEDS: predniSONE 20 MG TAB PO SCH (09:03)
[2019-11-23] MEDS: FLUoxetine 20 MG CAP PO SCH (09:03)
[2019-11-23] MEDS: FUROSEMIDE 100MG/10ML VIAL (J1940) IV SCH (09:13)
--- NOTE | 2019-11-23 11:14 | IPNPDOC ---
Date Seen The patient was seen on 11/23/19. Progress Note SUBJECTIVE: Neg 2 L/24hrs. Echo results pending. Will need walking desat test today or in AM. Currently denies chest pain, increased SOB, n/v/d. OBJECTIVE: PHYSICAL EXAM: VS: Please see below GEN: NAD, resting in bed INTEGUMENT: Intact, no rashes, lesions, normal skin turgor HEENT:NC/AT, EOM intact, PERRLA, lips are not cyanotic, NC in place CVS: S1S2 +, no M/R/G LUNGS: Decreased BS b/l, mild exp wheezing-baseline. No W/R/R ABDOMEN: obese, soft, nontender, nondistended, BS + 4 quadrants EXTREMITIES: nonpitting pitting edema b/l lower ext, No cyanosis. NEURO: CN 2-12 are grossly intact, no focal deficits. PSYCH: mood and affect appropriate LABORATORY DATA: IMAGING: Chest xray: No acute findings. MICROBIOLOGY: 11/19/19 Blood Cultures x 2 sets: NG at 24 hours ASSESSMENT: Ms. Dong is a 64-year-old with a history of noncompliance, NIDDM, grade 1 diastolic CHF, HTN, LUZ MARIA, COPD, & chronic oxygen dependence with hypoxia and hypercarbia who presented with confusion admitted for management of acute COPD and acute diastolic CHF. PLAN: # Acute on chronic hypercapnic respiratory failure likely 2/2 to uncontrolled LUZ MARIA, acute COPD exacerbation. -Please see individual treatment plans below #. Acute COPD exacerbation- improved -Currently saturating well on 4 L NC 88-90%- believed to be close to what the patient likely needs at baseline at rest. -Wheezing midl, decreased breath sounds bilaterally -C/w Duonebs Q6H, Albuterol Q2HP. Transition to oral prednisone today, tessalon pearls -Walking desaturation test today or in AM to determine how much O2 patient will need at home and ATC. # Mild Acute Diastolic CHF -Neg 2 L/24 hrs, improved aeration, improved b/l lower ext edema -BNP improved from >6K to 600 -Previous Echo in 2017 showed grade 1 DD -F/u repeat echo, monitor daily wts- improving -C/w lasix Qdaily #LUZ MARIA, uncontrolled. -Noncompliant with CPAP. Morbid obesity, increased daytime somnolence not new per HCP but has been worsening -Supposed to use nocturnal CPAP but has not used in many years -Needs repeat sleep study per pulmonary as o/p -Will set patient up prior to discharge. -continuos pulse ox -Will need ATC oxygen at home # Erythrocytosis Likely 2/2 chronic hypoxia & tobacco abuse -Monitor CBC # NIDDM - C/w levemir, carbohydrate consistent diet / f/u accuchecks & A1C / hypoglycemia protocol / sliding scale insulin / hold oral anti-glycemics # Chronic HTN -C/w losartan #Recent diagnosis of UTI - completed course of Macrobid 11/23/19 #Anxiety / Bipolar disorder -C/w fluoxetine # Tobacco Abuse -smoking cessation education #Morbidy Obesity -BMI 52.4 complicates care -Since her BMI >35 + DM she is a candidate for bariatric surgery -She can f/u w her PCP to discuss referral to a Bariatric Surgeon / recommend cardiovascular exercise for 40 min 4-5 days a week #Falls at home likely 2/2 to hypercapnia, weakness -PT/OT states would benefit from 1-2 days of therapy -May need o/p PT # DVT PROPHYLAXIS: Lovenox DISPOSITION: Currently inpatient status. Plan is home after echo results, additional PT as recommended and setting up home O2. VS, I&O, 24H, [facility] Vital Signs/I&O Vital Signs Date Time Temp Pulse Resp B/P (MAP) Pulse Ox O2 Delivery O2 Flow Rate FiO2 11/23/19 10:05 89 Nasal Cannula 2.0 11/23/19 09:02 115/69 11/23/19 06:00 97.6 88 21 I&O- Last 24 Hours up to 6 AM 11/23/19 06:00 Intake Total 930 ml Output Total 3125 ml Balance -2195 ml Laboratory Data 24H LABS Laboratory Tests 2 11/22/19 12:09: Bedside Glucose (Misc Panel) 135H 11/22/19 16:36: Bedside Glucose (Misc Panel) 159H 11/22/19 20:17: Bedside Glucose (Misc Panel) 208H 11/23/19 05:39: Nucleated Red Blood Cells % (auto) 0.0, Anion Gap 3L, Glomerular Filtration Rate > 60.0, Calcium Level 9.2, Total Bilirubin 0.9, Aspartate Amino Transf (AST/SGOT) 19, Alanine Aminotransferase (ALT/SGPT) 25, Alkaline Phosphatase 90, Total Protein 6.5, Albumin 3.2, Albumin/Globulin Ratio 1.0L CBC/BMP Laboratory Tests 11/23/19 05:39 Microbiology Microbiology 11/19/19 Respiratory Virus Panel (PCR) (ANUJA) - Final, Complete 11/19/19 Blood Culture - Preliminary, Resulted No Growth after 72 hours. All specime... 11/19/19 Blood Culture - Preliminary, Resulted No Growth after 72 hours. All specime... Current Medications Current Medications Medications (Trade) Dose Ordered Sig/Dian Route PRN Reason Start Time Stop Time Status Last Admin Dose Admin Acetaminophen (Tylenol Tab) 650 mg Q4H PRN PO PAIN OR FEVER 11/19/19 19:30 Albuterol Sulfate (Proventil Neb) 2.5 mg Q1HP PRN NEB SHORTNESS OF BREATH 11/19/19 19:30 Albuterol/ Ipratropium (Combivent Respimat 100-20mcg) 4 puff Q20M INH 11/19/19 13:45 11/19/19 14:26 DC 11/19/19 14:48 Albuterol/ Ipratropium (Duoneb (Ipr 0.5mg/Alb 2.5mg)) 3 ml RQ6H NEB 11/19/19 20:00 11/23/19 07:53 Alprazolam (Xanax) 1 mg TID PO 11/19/19 23:45 11/23/19 09:00 Benzonatate (Tessalon Perles) 200 mg Q8HP PRN PO COUGH 11/20/19 01:45 Dextrose (Dextrose 50%) 25 ml ASDIRECTED PRN IV SEE LABEL COMMENTS 11/19/19 19:30 Diphenhydramine HCl (Benadryl) 25 mg Q6H PRN PO ALLERGY SYMPTOMS 11/19/19 23:45 11/20/19 01:55 DC Enoxaparin Sodium (Lovenox) 40 mg DAILY SC 11/20/19 09:00 11/23/19 09:00 Fluoxetine HCl (PROzac) 80 mg DAILY PO 11/20/19 09:00 11/23/19 09:03 Furosemide (LASIX injection) 40 mg Q4H IV 11/19/19 20:00 11/20/19 10:47 DC 11/20/19 08:55 Furosemide (LASIX injection) 60 mg DAILY IV 11/21/19 09:00 11/23/19 09:13 Furosemide (LASIX injection) 60 mg Q12H IV 11/20/19 12:00 11/21/19 08:05 DC 11/21/19 00:12 Glucagon (Glucagon) 1 mg ASDIRECTED PRN SC SEE LABEL COMMENTS 11/19/19 19:30 Glucose (Glucose) 16 GM ASDIRECTED PRN PO SEE LABEL COMMENTS 11/19/19 19:30 Home Med (Med Rec Complete!) ASDIRECTED XX 11/19/19 18:30 11/19/19 18:21 DC Ibuprofen (Advil) 400 mg Q8H PO 11/20/19 22:00 11/23/19 05:40 Insulin Detemir (Levemir Insulin) 8 units QAM SC 11/21/19 09:00 11/23/19 08:59 Insulin Human Lispro (HumaLOG INSULIN) See Protocol Table AC SC 11/20/19 07:30 11/22/19 17:27 Insulin Human Lispro (HumaLOG INSULIN) See Protocol Table QHS SC 11/19/19 21:00 Levothyroxine Sodium (Synthroid) 200 mcg DAILY@0600 PO 11/20/19 06:00 11/23/19 05:40 Losartan Potassium (Cozaar) 50 mg DAILY PO 11/20/19 09:00 11/23/19 09:02 Magnesium Hydroxide (Milk Of Magnesia) 30 ml DAILY PRN PO CONSTIPATION 11/19/19 19:30 11/22/19 17:26 Nicotine (Nicoderm Cq 21mg) 1 patch QHS TD 11/19/19 23:45 11/22/19 20:46 Nitrofurantoin Monoh/Nitrofur Macro (Macrobid) 100 mg BID PO 11/19/19 23:45 11/23/19 09:00 Pantoprazole Sodium (Protonix) 40 mg DAILY PO 11/20/19 09:00 11/23/19 09:00 Prednisone (Deltasone) 40 mg DAILY PO 11/20/19 09:00 11/23/19 09:03 Allergies Coded Allergies: Penicillins (Verified Allergy, Unknown, 11/19/19) cefepime (Verified Adverse Reaction, Unknown, confusion, hallucinations, 11/19/19) Kasey Toro MD Nov 23, 2019 11:14
[2019-11-23] MEDS ORDERED: FURO20TA2 PO (18:22)
[2019-11-23] MEDS: NICOTINE 21MG/24HR 1 EA TRANSDERMAL TD SCH (20:34)
[2019-11-24] MEDS: IBUPROFEN 400 MG TAB PO SCH ×2 (05:48→13:22)
[2019-11-24] MEDS: LEVOTHYROXINE 100MCG TABLET (0.1MG) PO SCH (05:48)
[2019-11-24] MEDS: IPRATROPIUM 0.5MG/ALBUTEROL 2.5MG INH SOL UD 3ML (DUONEB) NEB SCH ×2 (05:59→07:03)
[2019-11-24 06:00] VITALS: BP 120/67
[2019-11-24 06:23] LABS: HEMATOCRIT 62.4 % (36.0-47.0); HEMOGLOBIN 18.2 g/dl (12.0-15.5); MEAN CORPUSCULAR HEMOGLOBIN 26.7 pg (27.0-33.0); MEAN CORPUSCULAR HGB CONC 29.2 g/dl (32.0-36.5); MEAN CORPUSCULAR VOLUME 91.5 fl (80.0-96.0); PLATELET COUNT, AUTOMATED 209 10^3/uL (150-450); RED BLOOD COUNT 6.82 10^6/uL (4.00-5.40); WHITE BLOOD COUNT 12.3 10^3/uL (4.0-10.0)
[2019-11-24 06:58] LABS: ALBUMIN 3.5 GM/DL (3.2-5.2); ALT/SGPT 32 U/L (12-78); BILIRUBIN,TOTAL 1.1 MG/DL (0.2-1.0); BLOOD UREA NITROGEN 35 MG/DL (7-18); CARBON DIOXIDE LEVEL 41 MEQ/L (21-32); CHLORIDE LEVEL 94 MEQ/L (98-107); CREATININE FOR GFR 0.77 MG/DL (0.55-1.30); GLOMERULAR FILTRATION RATE > 60.0 (>45); GLUCOSE, FASTING 80 MG/DL (70-100); POTASSIUM SERUM 3.8 MEQ/L (3.5-5.1); SODIUM LEVEL 139 MEQ/L (136-145); TOTAL PROTEIN 7.5 GM/DL (6.4-8.2)
[2019-11-24] MEDS: HumaLOG INSULIN (NovoLOG) PER UNIT SC SCH ×2 (07:30→12:46)
--- NOTE | 2019-11-24 07:59 | ECHO ---
DATE OF PROCEDURE: 11/22/2019 Age: Gender: Female Height: 165 cm Weight: 138 kg REFERRING PHYSICIAN: Dr. Kasey Toro INDICATION: Heart failure, unspecified. MEASUREMENTS: 2D Measurements: Left atrium 3.4 cm Interventricular septum 1.26 cm Posterior wall 1.15 cm Left ventricle diastole 5.0 cm Aortic root 3.1 cm Inferior vena cava 2.7 cm (more than 50% respiratory variation) Doppler Measurements: No aortic stenosis No aortic regurgitation Aortic valve velocity 188 cm/s No mitral regurgitation Mitral E velocity 74.6 cm/s Mitral A velocity 66.4 cm/s Mitral deceleration time 154 msec Trace tricuspid regurgitation Pulmonary artery acceleration time 140 msec MITRAL ANNULAR TISSUE DOPPLER Technically difficult apical window. DESCRIPTION: Rhythm was sinus. This study was performed supine. This was a technically difficult echocardiogram. No pericardial effusion. This was a 2D, M- mode, color flow Doppler, and pulsed wave Doppler examination. CONCLUSIONS: 1. Borderline concentric left ventricular hypertrophy. Appearance of normal regional left ventricular (LV) wall motion and wall thickening. Normal left ventricular (LV) systolic function. Left ventricular ejection fraction (LVEF) 50% by visual estimate. Probably normal left ventricular (LV) diastolic function. Normal left atrial size. 2. Moderate aortic valve sclerosis of a 3-cuspid aortic valve. No aortic stenosis or regurgitation. 3. Mild mitral annular calcification. No mitral regurgitation. 4. No pericardial effusion. 5. Otherwise normal appearing echocardiogram Doppler findings. 6. Technically difficult echocardiogram. MTDD
[2019-11-24] MEDS: ENOXAPARIN 40MG/0.4ML SYRINGE (J1650 PER 10MG) SC SCH (08:44)
[2019-11-24] MEDS: MOM 30ML SUSPENSION UDC PO PRN (08:44)
[2019-11-24] MEDS: predniSONE 20 MG TAB PO SCH (08:45)
[2019-11-24] MEDS: FLUoxetine 20 MG CAP PO SCH (08:45)
[2019-11-24] MEDS: ALPRAZolam 0.5 MG TAB PO SCH (08:45)
[2019-11-24] MEDS: PANTOPRAZOLE 40MG TAB (PROTONIX) PO SCH (08:45)
[2019-11-24] MEDS: LEVEMIR (INSULIN DETEMIR) 1 UNITS/0.01ML SC SCH (08:45)
[2019-11-24 08:46] VITALS: BP 112/67
[2019-11-24] MEDS: LOSARTAN 50MG TABLET PO SCH (08:46)
[2019-11-24] MEDS ORDERED: FUROSEMIDE 20 MG TAB PO SCH (09:00)
[2019-11-24] MEDS ORDERED: NICO1PAT36 TOP (09:30)
[2019-11-24] MEDS ORDERED: LASI40TA9 PO (09:31)
[2019-11-24 14:00] VITALS: BP 100/63
--- NOTE | 2019-11-24 15:20 | DS.PDOC ---
Discharge Summary General Date of Admission Nov 19, 2019 at 19:20 Date of Discharge 11/24/19 Attending Physician: Kasey Toro MD Discharge Summary HISTORY OF PRESENT ILLNESS: This 64-year-old female presented with complaints of feeling confused for a few days. Per discussion with the [employer] when she arrived, the patient was combative and didn't want his stay. But, shortly after receiving Lasix, steroids and DuoNeb's. Her mental status improved and she became more cooperative. Despite receiving medications. Her O2 sats dropped to 75% with ambulation. The patient denied having fevers, chills, chest pain, abdominal pain, falling, or bilateral lower extremity edema. At her baseline, she sleeps sitting up in a recliner, but is unable to describe what happens if she tries to lie down flat to sleep. She has a chronic cough which has not changed recently. The patient added that she went to an urgent care center and was diagnosed with a UTI a few days ago but has not completed her course of antibiotics. Patient was admitted for acute COPD and CHF exacerbation, uncontrolled LUZ MARIA. HOSPITAL COURSE: Patient was heavily diuresed with IV lasix during her stay. As she was diuresed, O2 saturation improved. Steroids were weaned down and later off, indicating COPD better controlled. Echocardiogram done showin. Borderline concentric left ventricular hypertrophy, left ventricular ejection fraction (LVEF) 50% by visual estimate. 2. moderate aortic valve sclerosis of a 3-cuspid aortic valve. 3. otherwise normal appearing echocardiogram Doppler findings. 4. Technically difficult echocardiogram. Patient had walking O2 test done, finding she required O2 both with rest and while ambulating. Smoking cessation counselling was done with patient. Dr. Haines (pulmonology) was curbsided and case was discussed. On 11/24/19, patient was discharged home with home O2 ATC, f/u with PCP and pulmonology. At discharge, patient denied chest pain, increased SOB, n/v/d, fevers, or chills. PAST MEDICAL/ SURGICAL HISTORY: NIDDM, the patient discontinued her metformin Chronic diastolic CHF Chronic HTN LUZ MARIA not compliant with CPAP COPD Chronic O2 dependent respiratory failure with hypoxia and hypercarbia 2 L GERD Anxiety Bipolar disorder D & C SOCIAL HISTORY: Smokes 1/2 PPD for >30 years She doesn't use alcohol She doesn't use recreational drugs Lives independently. Noncompliant with Cpap. FAMILY HISTORY: CHF Leukemia CAD ALLERGIES: Please see below. PHYSICAL EXAM: VS: Please see below GEN: NAD, resting in bed INTEGUMENT: Intact, no rashes, lesions, normal skin turgor HEENT: NC/AT, EOM intact, PERRLA, lips are not cyanotic, NC in place CVS: S1S2 +, no M/R/G LUNGS: Decreased BS b/l, mild exp wheezing-baseline. No W/R/R ABDOMEN: obese, soft, nontender, nondistended, BS + 4 quadrants EXTREMITIES: nonpitting pitting edema b/l lower ext, No cyanosis. NEURO: CN 2-12 are grossly intact, no focal deficits. PSYCH: mood and affect appropriate LABORATORY DATA: IMAGING: Chest xray: No acute findings. Echocardiogram: 1. Borderline concentric left ventricular hypertrophy. Appearance of normal regional left ventricular (LV) wall motion and wall thickening. Normal left ventricular (LV) systolic function. Left ventricular ejection fraction (LVEF) 50% by visual estimate. Probably normal left ventricular (LV) diastolic function. Normal left atrial size. 2. Moderate aortic valve sclerosis of a 3-cuspid aortic valve. No aortic stenosis or regurgitation. 3. Mild mitral annular calcification. No mitral regurgitation. 4. No pericardial effusion. 5. Otherwise normal appearing echocardiogram Doppler findings. 6. Technically difficult echocardiogram. MICROBIOLOGY: 11/19/19 Blood Cultures x 2 sets: NG at 24 hours ASSESSMENT: Ms. Dong is a 64-year-old with a history of noncompliance, NIDDM, grade 1 diastolic CHF, HTN, LUZ MARIA, COPD, & chronic oxygen dependence with hypoxia and hypercarbia who presented with confusion admitted for management of acute COPD and acute diastolic CHF. PLAN: # Acute on chronic hypercapnic respiratory failure likely 2/2 to uncontrolled LUZ MARIA, acute COPD exacerbation. -Please see individual treatment plans below #. Acute COPD exacerbation- resolved -Currently saturating well on 2 L NC ATC -Wheezing mild, decreased breath sounds bilaterally-believed to be close to baseline -Walking desaturation test today showed needs ATC O2 -No need for o/p steroid taper. # Mild Acute Diastolic CHF -Neg 11.8 L this admission, improved aeration, improved b/l lower ext edema -BNP improved from >6K to 600 -Previous Echo in 2017 showed grade 1 DD -New echo above -C/w lasix Qdaily -Recommend f/u with cardiology as o/p #LUZ MARIA, uncontrolled. -Noncompliant with CPAP. Morbid obesity, increased daytime somnolence -Supposed to use nocturnal CPAP but has not used in many years -Needs repeat sleep study per pulmonary as o/p -Pulmonary appt set up for patient at discharge -C/w ATC O2 at home # Erythrocytosis Likely 2/2 chronic hypoxia & tobacco abuse -Monitor CBC # NIDDM - C/w home metformin - F/u with PCP # Chronic HTN -C/w losartan #Recent diagnosis of UTI - completed course of Macrobid 11/23/19 #Anxiety / Bipolar disorder -C/w fluoxetine # Tobacco Abuse -smoking cessation education #Morbidy Obesity -BMI 52.4 complicates care -Since her BMI >35 + DM she is a candidate for bariatric surgery -She can f/u w her PCP to discuss referral to a Bariatric Surgeon / recommend cardiovascular exercise for 40 min 4-5 days a week DISPOSITION: Discharged home in improved condition with f/u with PCP, pulmonary. Recommend referral by PCP for cardiology. TIME SPENT ON DISCHARGE: Greater than 30 minutes. Vital Signs/I&Os Vital Signs Date Time Temp Pulse Resp B/P (MAP) Pulse Ox O2 Delivery O2 Flow Rate FiO2 11/24/19 08:46 112/67 11/24/19 06:00 97.4 80 20 91 Nasal Cannula 2.0 I&O- Last 24 Hours up to 6 AM 11/24/19 06:00 Intake Total 1050 ml Output Total 2450 ml Balance -1400 ml Laboratory Data Labs 24H Laboratory Tests 2 11/23/19 16:46: Bedside Glucose (Misc Panel) 197H 11/23/19 20:11: Bedside Glucose (Misc Panel) 167H 11/24/19 05:39: Nucleated Red Blood Cells % (auto) 0.0, Anion Gap 4L, Glomerular Filtration Rate > 60.0, Calcium Level 10.0, Total Bilirubin 1.1H, Aspartate Amino Transf (AST/SGOT) 25, Alanine Aminotransferase (ALT/SGPT) 32, Alkaline Phosphatase 103, Total Protein 7.5, Albumin 3.5, Albumin/Globulin Ratio 0.9L 11/24/19 12:05: Bedside Glucose (Misc Panel) 175H CBC/BMP Laboratory Tests 11/24/19 05:39 FSBS Laboratory Tests Test 11/23/19 16:46 11/23/19 20:11 11/24/19 12:05 Range/Units Bedside Glucose (Misc Panel) 197 167 175 80-115 MG/DL Microbiology Microbiology 11/19/19 Respiratory Virus Panel (PCR) (ANUJA) - Final, Complete 11/19/19 Blood Culture - Final, Complete NO GROWTH AFTER 5 DAYS 11/19/19 Blood Culture - Final, Complete NO GROWTH AFTER 5 DAYS Discharge Medications Scheduled Alprazolam (Alprazolam) 1 Mg Tablet, 1 MG PO TID, (Reported) Fluoxetine Hcl (Fluoxetine HCl) 40 Mg Capsule, 80 MG PO DAILY, (Reported) Furosemide (Lasix) 40 Mg Tablet, 40 MG PO DAILY Glimepiride (Glimepiride) 2 Mg Tab, 2 MG PO DAILY, (Reported) Levothyroxine Sodium (Synthroid) 200 Mcg Tablet, 200 MCG PO QAM, (Reported) Losartan Potassium (Losartan Potassium) 50 Mg Tab, 50 MG PO DAILY, (Reported) Metformin HCl (Metformin HCl) 500 Mg Tablet, 500 MG PO BID, (Reported) Nicotine (Nicotine Patch) 14 Mg/24 Hr Patch.td24, 1 PATCH TOP DAILY for smoking cessation Potassium Chloride (Potassium Chloride) 8 Meq Tab, 8 MEQ PO TID, (Reported) Scheduled PRN Acetaminophen/Caff/Dihydrocod ([id number] 320.5) 1 Cap Cap, 1 CAP PO DAILY PRN for HEADACHE, (Reported) Diphenhydramine HCl (Diphenhydramine HCl) 25 Mg Cap, 25 MG PO Q6H PRN for ALLERGY SYMPTOMS, (Reported) Allergies Coded Allergies: Penicillins (Verified Allergy, Unknown, 11/19/19) cefepime (Verified Adverse Reaction, Unknown, confusion, hallucinations, 11/19/19) Kasey Toro MD Nov 24, 2019 15:20
== END 2019-11-24 16:04 | disposition home health service (06) | DRG 291 ==
LOC: EDBD 12:48 → M ED 12:48 → M ED INP 19:20 → ENRESERV 20:09 → M MSPAV 21:46
PROVIDERS: ADMIT Internal Medicine; ATTEND Internal Medicine
DX: I11.0 Hypertensive heart disease with heart failure (principal); J96.22 Acute and chronic respiratory failure with hypercapnia; G93.40 Encephalopathy, unspecified; Z68.43 Body mass index [BMI] 50.0-59.9, adult; J44.1 Chronic obstructive pulmonary disease with (acute) exacerbation; N39.0 Urinary tract infection, site not specified; I50.33 Acute on chronic diastolic (congestive) heart failure; E66.01 Morbid (severe) obesity due to excess calories; Z99.81 Dependence on supplemental oxygen; F17.200 Nicotine dependence, unspecified, uncomplicated; E11.9 Type 2 diabetes mellitus without complications; Z91.19 Patient's noncompliance with other medical treatment and regimen; G47.33 Obstructive sleep apnea (adult) (pediatric); F41.9 Anxiety disorder, unspecified; F32.9 Major depressive disorder, single episode, unspecified; Z79.899 Other long term (current) drug therapy; Z88.0 Allergy status to penicillin; Z88.8 Allergy status to other drugs, medicaments and biological substances; K21.9 Gastro-esophageal reflux disease without esophagitis; E87.5 Hyperkalemia

== ENCOUNTER → 2020-04-12 | Outpatient (CLI) | payer MEDICARE ==
[~2020-04-12] MED LIST changes: +FLUO40CA PO; +FURO20TA2 PO; +LASI40TA9 PO; +LEVO2TA PO; +MACR100C43 PO; +METF500T13 PO; +NICO1PAT36 TOP
--- NOTE | 2020-04-12 10:33 | REP ---
INDICATION: NICOTINE DEPENDENCE/ PT HAS LABS FIRST COMPARISON: 05/02/2007 TECHNIQUE: Axial noncontrast images from the thoracic inlet to the upper abdomen using low-dose lung screening technique (LDCT). FINDINGS: Lung emery demonstrate chronic age-related interstitial changes. No consolidation, significant nodule or mass. No effusion. No pneumothorax. Tracheobronchial tree is patent. Mediastinal/precarinal enlarged lymph nodes cannot be excluded. IMPRESSION: 1. Lung-RADS category 1. No significant suspicious nodule or mass lesion. Management recommendations include annual low-dose CT surveillance. 2. Subtle mediastinal/precarinal lymph nodes cannot be excluded. Consider short-term follow-up contrast-enhanced chest CT for further investigation. <Electronically signed by Shayne Anderson > 04/12/20 [id number]
[2020-04-12 10:58] LABS: HEMATOCRIT 59.5 % (36.0-47.0); HEMOGLOBIN 17.9 g/dl (12.0-15.5); MEAN CORPUSCULAR HEMOGLOBIN 30.9 pg (27.0-33.0); MEAN CORPUSCULAR HGB CONC 30.1 g/dl (32.0-36.5); MEAN CORPUSCULAR VOLUME 102.8 fl (80.0-96.0); PLATELET COUNT, AUTOMATED 238 10^3/uL (150-450); RED BLOOD COUNT 5.79 10^6/uL (4.00-5.40); WHITE BLOOD COUNT 12.2 10^3/uL (4.0-10.0)
[2020-04-12 11:23] LABS: HEMOGLOBIN A1c 5.2 %
[2020-04-12 11:36] LABS: ALBUMIN 3.6 GM/DL (3.2-5.2); ALT/SGPT 22 U/L (12-78); BILIRUBIN,TOTAL 0.3 MG/DL (0.2-1.0); BLOOD UREA NITROGEN 17 MG/DL (7-18); CALCIUM LEVEL 9.7 MG/DL (8.8-10.2); CARBON DIOXIDE LEVEL 34 MEQ/L (21-32); CHLORIDE LEVEL 102 MEQ/L (98-107); CHOLESTEROL LEVEL 227 MG/DL (<200); CHOLESTEROL RISK RATIO 5.044 (<5); CREATININE FOR GFR 0.75 MG/DL (0.55-1.30); GLOMERULAR FILTRATION RATE > 60.0 (>45); GLUCOSE, FASTING 82 MG/DL (70-100); HDL CHOLESTEROL 45 MG/DL (>40); LDL CHOLESTEROL 141 MG/DL (<100); NON-HDL-C 182 MG/DL; POTASSIUM SERUM 4.8 MEQ/L (3.5-5.1); SODIUM LEVEL 144 MEQ/L (136-145); THYROID STIMULATING HORMONE 0.653 uIU/ML (0.358-3.740); TOTAL PROTEIN 7.5 GM/DL (6.4-8.2); TRIGLYCERIDES LEVEL 204 MG/DL (<150)
[2020-04-12 11:40] LABS: TOTAL 25(OH) VITAMIN D 41.2 NG/ML (30.0-100.0)
[2020-04-12 11:41] LABS: TOTAL T3 105.2 NG/DL (60.0-181.0)
== END ==
LOC: M LAB 09:53
PROVIDERS: ATTEND Family Medicine
DX: I10 Essential (primary) hypertension (principal); Z79.899 Other long term (current) drug therapy

== ENCOUNTER → 2020-04-12 | Outpatient (CLI) | payer MEDICARE | LOC: M RAD 09:51 | PROVIDERS: ATTEND Nurse Practitioner Adult Health | DX: F17.218 Nicotine dependence, cigarettes, with other nicotine-induced disorders (principal) ==

== ENCOUNTER → 2020-10-25 | Outpatient (CLI) | payer MEDICARE ==
[2020-10-25 12:54] LABS: BLOOD UREA NITROGEN 10 MG/DL (7-18); CREATININE FOR GFR 0.65 MG/DL (0.55-1.30); GLOMERULAR FILTRATION RATE > 60.0 (>45)
== END ==
LOC: M LAB 10:20 → M RAD 10:20 → M LAB 11:15
PROVIDERS: ATTEND Nurse Practitioner Adult Health
DX: R91.8 Other nonspecific abnormal finding of lung field (principal)

== ENCOUNTER → 2020-11-04 | Outpatient (CLI) | payer MEDICARE ==
[~2020-11-04] MED LIST changes: +ISOVUE-370 76% 100ML VIAL As Ordered ONE
--- NOTE | 2020-11-04 12:23 | REP ---
INDICATION: ABN FINDINGS OF LUNG FIELD. Assess precarinal lymph node and nonspecific area of inflammation left base. COMPARISON: Comparison CT studies are from April 12, 2020 and May 02, 2007. TECHNIQUE: Helical scanning is acquired following the intravenous injection of 75 mL of Isovue 370. Coronal and sagittal MPR and coronal MIP images are included. 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 There is a stable area of linear pleuroparenchymal scarring in the left lateral pleural angle at the left lung base unchanged from the most recent prior study of April 12, 2020. No pulmonary nodule or mass lesion is seen. No new infiltrate is seen. There is a stable precarinal lymph node containing some macroscopic fat unchanged from the 2008 prior study. No evidence of mediastinal or hilar lymphadenopathy is seen. No pleural or pericardial effusion is noted. There is some vascular calcification including coronary artery vascular calcification. The in the upper abdomen normal adrenal glands are observed. The visualized upper abdominal structures are unremarkable. IMPRESSION: No acute disease. Area of mild linear pleuroparenchymal scarring left base. No evidence of mass or adenopathy. Repeat screening CT study suggested in 1 year. <Electronically signed by Jae Velasquez > 11/04/20 [id number]
== END ==
LOC: M RAD 11:00
PROVIDERS: ATTEND Nurse Practitioner Adult Health
DX: R91.8 Other nonspecific abnormal finding of lung field (principal); J98.4 Other disorders of lung
CPT/HCPCS: 71260; Q9967

== ENCOUNTER → 2021-05-31 | Outpatient (CLI) | payer MEDICARE ==
[~2021-05-31] MED LIST changes: -ISOVUE-370 76% 100ML VIAL As Ordered ONE; +LOSA50TA28 PO; -LOSA50TA88 PO
[2021-05-31 09:23] LABS: HEMATOCRIT 54.6 % (36.0-47.0); HEMOGLOBIN 17.6 g/dl (12.0-15.5); MEAN CORPUSCULAR HEMOGLOBIN 30.9 pg (27.0-33.0); MEAN CORPUSCULAR HGB CONC 32.2 g/dl (32.0-36.5); PLATELET COUNT, AUTOMATED 179 10^3/uL (150-450); RED BLOOD COUNT 5.69 10^6/uL (4.00-5.40); WHITE BLOOD COUNT 7.8 10^3/uL (4.0-10.0)
[2021-05-31 09:34] LABS: HEMOGLOBIN A1c 5.9 %
[2021-05-31 09:48] LABS: ALBUMIN 3.2 GM/DL (3.2-5.2); ALT/SGPT 20 U/L (12-78); BILIRUBIN,TOTAL 0.7 MG/DL (0.2-1.0); BLOOD UREA NITROGEN 10 MG/DL (7-18); CALCIUM LEVEL 9.3 MG/DL (8.8-10.2); CARBON DIOXIDE LEVEL 34 MEQ/L (21-32); CHLORIDE LEVEL 103 MEQ/L (98-107); CHOLESTEROL LEVEL 197 MG/DL (<200); CHOLESTEROL RISK RATIO 5.324 (<5); CREATININE FOR GFR 0.58 MG/DL (0.55-1.30); GLOMERULAR FILTRATION RATE > 60.0 (>45); GLUCOSE, FASTING 113 MG/DL (70-100); HDL CHOLESTEROL 37 MG/DL (>40); LDL CHOLESTEROL 121 MG/DL (<100); NON-HDL-C 160 MG/DL; POTASSIUM SERUM 4.1 MEQ/L (3.5-5.1); SODIUM LEVEL 142 MEQ/L (136-145); THYROID STIMULATING HORMONE 0.041 uIU/ML (0.358-3.740); TOTAL PROTEIN 6.6 GM/DL (6.4-8.2); TRIGLYCERIDES LEVEL 197 MG/DL (<150)
== END ==
LOC: M RAD 07:39
PROVIDERS: ATTEND Family Medicine
DX: I10 Essential (primary) hypertension (principal); E11.9 Type 2 diabetes mellitus without complications; J44.9 Chronic obstructive pulmonary disease, unspecified

== ENCOUNTER → 2021-07-11 | Outpatient (CLI) | payer MEDICARE | LOC: M WHC 09:09 | PROVIDERS: ATTEND Family Medicine | DX: Z12.31 Encounter for screening mammogram for malignant neoplasm of breast (principal) ==

== ENCOUNTER → 2021-10-25 | Outpatient (CLI) | payer MEDICARE ==
[2021-10-25 11:39] LABS: HEMATOCRIT 62.8 % (36.0-47.0); HEMOGLOBIN 19.6 g/dl (12.0-15.5); MEAN CORPUSCULAR HEMOGLOBIN 29.9 pg (27.0-33.0); MEAN CORPUSCULAR HGB CONC 31.2 g/dl (32.0-36.5); MEAN CORPUSCULAR VOLUME 95.7 fl (80.0-96.0); PLATELET COUNT, AUTOMATED 195 10^3/uL (150-450); RED BLOOD COUNT 6.56 10^6/uL (4.00-5.40); WHITE BLOOD COUNT 9.1 10^3/uL (4.0-10.0)
[2021-10-25 13:52] LABS: ALBUMIN 3.3 GM/DL (3.2-5.2); ALT/SGPT 14 U/L (12-78); BILIRUBIN,TOTAL 0.9 MG/DL (0.2-1.0); BLOOD UREA NITROGEN 12 MG/DL (7-18); CALCIUM LEVEL 8.8 MG/DL (8.8-10.2); CARBON DIOXIDE LEVEL 28 MEQ/L (21-32); CHLORIDE LEVEL 103 MEQ/L (98-107); CHOLESTEROL LEVEL 199 MG/DL (<200); CHOLESTEROL RISK RATIO 5.102 (<5); CREATININE FOR GFR 0.76 MG/DL (0.55-1.30); GLOMERULAR FILTRATION RATE > 60.0 (>45); GLUCOSE, FASTING 118 MG/DL (70-100); HDL CHOLESTEROL 39 MG/DL (>40); LDL CHOLESTEROL 132 MG/DL (<100); NON-HDL-C 160 MG/DL; POTASSIUM SERUM 4.7 MEQ/L (3.5-5.1); SODIUM LEVEL 138 MEQ/L (136-145); TOTAL PROTEIN 7.1 GM/DL (6.4-8.2); TRIGLYCERIDES LEVEL 141 MG/DL (<150)
[2021-10-25 14:44] LABS: HEMOGLOBIN A1c 5.8 %
== END ==
LOC: M RAD 09:38
PROVIDERS: ATTEND Family Medicine
DX: J44.9 Chronic obstructive pulmonary disease, unspecified (principal); D64.9 Anemia, unspecified; R53.83 Other fatigue; R91.8 Other nonspecific abnormal finding of lung field

== ENCOUNTER → 2022-04-04 | Outpatient (CLI) | payer MEDICARE ==
[~2022-04-04] MED LIST changes: +DIPH-435 PO; -DIPH25CA32 PO
[2022-04-04 07:49] LABS: HEMATOCRIT 57.6 % (36.0-47.0); MEAN CORPUSCULAR HGB CONC 31.6 g/dl (32.0-36.5); MEAN CORPUSCULAR VOLUME 98.1 fl (80.0-96.0); PLATELET COUNT, AUTOMATED 181 10^3/uL (150-450); RED BLOOD COUNT 5.87 10^6/uL (4.00-5.40); WHITE BLOOD COUNT 9.2 10^3/uL (4.0-10.0)
[2022-04-04 07:52] LABS: HEMOGLOBIN 18.2 g/dl (12.0-15.5)
[2022-04-04 07:53] LABS: IRON (FE) 114 UG/DL (50-170); PERCENT SATURATION 41.2 % (13.2-45.0); TOTAL IRON BINDING CAPACITY 277 UG/DL (250-425)
[2022-04-04 07:54] LABS: ALBUMIN 3.3 G/DL (3.2-5.2); ALKALINE PHOSPHATASE 103 U/L (46-116); ALT/SGPT 13 U/L (7.0-40); AST/SGOT 15 U/L (<34); BILIRUBIN,TOTAL 0.6 MG/DL (0.3-1.2); BLOOD UREA NITROGEN 19 MG/DL (9-23); CALCIUM LEVEL 8.9 MG/DL (8.3-10.6); CARBON DIOXIDE LEVEL 36 MMOL/L (20-31); CHLORIDE LEVEL 99 MMOL/L (98-107); CHOLESTEROL LEVEL 224 MG/DL (<200); CHOLESTEROL RISK RATIO 5.12 (<5); CREATININE FOR GFR 0.73 MG/DL (0.55-1.30); GLOMERULAR FILTRATION RATE > 60.0 (>45); GLUCOSE, FASTING 122 MG/DL (74-106); HDL CHOLESTEROL 43.7 MG/DL (>40); LDL CHOLESTEROL 141.1 MG/DL (<100); NON-HDL-C 180 MG/DL; POTASSIUM SERUM 4.5 MMOL/L (3.5-5.1); SODIUM LEVEL 139 MMOL/L (136-145); TOTAL PROTEIN 6.7 G/DL (5.7-8.2); TRIGLYCERIDES LEVEL 196 MG/DL (<150)
[2022-04-04 07:57] LABS: THYROID STIMULATING HORMONE 0.303 uIU/ML (0.55-4.78); TOTAL 25(OH) VITAMIN D 26.3 NG/ML (20.0-100.0)
[2022-04-04 08:47] LABS: HEMOGLOBIN A1c 5.6 % (4.0-6.0)
== END ==
LOC: M LAB 06:46
PROVIDERS: ATTEND Family Medicine
DX: I10 Essential (primary) hypertension (principal); R53.83 Other fatigue; E11.9 Type 2 diabetes mellitus without complications

== ENCOUNTER → 2022-06-12 | Outpatient (CLI) | payer MEDICARE | LOC: M SLEEP 20:00 | PROVIDERS: ATTEND Nurse Practitioner Adult Health | DX: G47.34 Idiopathic sleep related nonobstructive alveolar hypoventilation (principal); G47.61 Periodic limb movement disorder; R06.83 Snoring ==

== ENCOUNTER → 2022-08-16 | Outpatient (CLI) | payer MEDICARE | LOC: M RAD 09:15 | PROVIDERS: ATTEND Nurse Practitioner Adult Health | DX: Z12.2 Encounter for screening for malignant neoplasm of respiratory organs (principal); F17.218 Nicotine dependence, cigarettes, with other nicotine-induced disorders ==

== ENCOUNTER → 2022-09-25 | Outpatient (CLI) | payer MEDICARE ==
[2022-09-25 10:28] LABS: HEMATOCRIT 61.3 % (36.0-47.0); HEMOGLOBIN 19.6 g/dl (12.0-15.5); MEAN CORPUSCULAR HEMOGLOBIN 30.4 pg (27.0-33.0); PLATELET COUNT, AUTOMATED 227 10^3/uL (150-450); WHITE BLOOD COUNT 11.1 10^3/uL (4.0-10.0)
[2022-09-25 10:31] LABS: RED BLOOD COUNT 6.45 10^6/uL (4.00-5.40)
[2022-09-25 10:52] LABS: ALBUMIN 3.7 G/DL (3.2-5.2); ALKALINE PHOSPHATASE 114 U/L (46-116); ALT/SGPT 11 U/L (7.0-40); AST/SGOT < 8 U/L (<34); BILIRUBIN,TOTAL 0.6 MG/DL (0.3-1.2); BLOOD UREA NITROGEN 23 MG/DL (9-23); CALCIUM LEVEL 9.5 MG/DL (8.3-10.6); CARBON DIOXIDE LEVEL 31 MMOL/L (20-31); CHLORIDE LEVEL 99 MMOL/L (98-107); CHOLESTEROL LEVEL 205 MG/DL (<200); CHOLESTEROL RISK RATIO 5.24 (<5); CREATININE FOR GFR 0.85 MG/DL (0.55-1.30); GLOMERULAR FILTRATION RATE > 60.0 (>45); GLUCOSE, FASTING 80 MG/DL (74-106); HDL CHOLESTEROL 39.1 MG/DL (>40); LDL CHOLESTEROL 130.5 MG/DL (<100); NON-HDL-C 165.9 MG/DL; SODIUM LEVEL 137 MMOL/L (136-145); THYROID STIMULATING HORMONE 1.406 uIU/ML (0.55-4.78); TOTAL 25(OH) VITAMIN D 31.2 NG/ML (20.0-100.0); TOTAL PROTEIN 7.1 G/DL (5.7-8.2); TRIGLYCERIDES LEVEL 177 MG/DL (<150)
[2022-09-25 10:53] LABS: HEMOGLOBIN A1c 5.8 % (4.0-6.0)
== END ==
LOC: M LAB 09:43
PROVIDERS: ATTEND Family Medicine
DX: Z04.9 Encounter for examination and observation for unspecified reason (principal); I10 Essential (primary) hypertension; R53.83 Other fatigue; E05.90 Thyrotoxicosis, unspecified without thyrotoxic crisis or storm; Z79.899 Other long term (current) drug therapy

== ENCOUNTER → 2023-03-27 | Outpatient (CLI) | payer MEDICARE, MEDICAID ==
[2023-03-27 09:35] LABS: MEAN CORPUSCULAR HEMOGLOBIN 31.5 pg (27.0-33.0); MEAN CORPUSCULAR HGB CONC 32.6 g/dl (32.0-36.5); MEAN CORPUSCULAR VOLUME 96.9 fl (80.0-96.0); PLATELET COUNT, AUTOMATED 185 10^3/uL (150-450)
[2023-03-27 09:36] LABS: HEMATOCRIT 59.6 % (36.0-47.0); HEMOGLOBIN 19.4 g/dl (12.0-15.5); RED BLOOD COUNT 6.15 10^6/uL (4.00-5.40)
[2023-03-27 09:52] LABS: ALBUMIN 3.2 G/DL (3.2-5.2); ALKALINE PHOSPHATASE 98 U/L (46-116); ALT/SGPT 16 U/L (7.0-40); AST/SGOT 15 U/L (<34); BILIRUBIN,TOTAL 0.5 MG/DL (0.3-1.2); BLOOD UREA NITROGEN 21 MG/DL (9-23); CALCIUM LEVEL 9.2 MG/DL (8.3-10.6); CARBON DIOXIDE LEVEL 32 MMOL/L (20-31); CHLORIDE LEVEL 105 MMOL/L (98-107); CHOLESTEROL LEVEL 239 MG/DL (<200); CHOLESTEROL RISK RATIO 5.28 (<5); CREATININE FOR GFR 0.69 MG/DL (0.55-1.30); GLOMERULAR FILTRATION RATE > 60.0 (>45); GLUCOSE, FASTING 128 MG/DL (74-106); HDL CHOLESTEROL 45.2 MG/DL (>40); LDL CHOLESTEROL 130.2 MG/DL (<100); NON-HDL-C 193.8 MG/DL; POTASSIUM SERUM 4.8 MMOL/L (3.5-5.1); SODIUM LEVEL 141 MMOL/L (136-145); TOTAL PROTEIN 6.7 G/DL (5.7-8.2); TRIGLYCERIDES LEVEL 318 MG/DL (<150)
[2023-03-27 09:54] LABS: THYROID STIMULATING HORMONE 1.579 uIU/ML (0.55-4.78)
[2023-03-27 09:59] LABS: HEMOGLOBIN A1c 5.9 % (4.0-6.0)
== END ==
LOC: M LAB 08:41
PROVIDERS: ATTEND Family Medicine
DX: I10 Essential (primary) hypertension (principal); J44.9 Chronic obstructive pulmonary disease, unspecified; E11.9 Type 2 diabetes mellitus without complications; R53.83 Other fatigue; I70.0 Atherosclerosis of aorta

== ENCOUNTER → 2023-10-23 | Outpatient (CLI) | payer MEDICARE, MEDICAID | LOC: M RAD 09:01 | PROVIDERS: ATTEND Nurse Practitioner Adult Health | DX: Z12.2 Encounter for screening for malignant neoplasm of respiratory organs (principal); F17.218 Nicotine dependence, cigarettes, with other nicotine-induced disorders; R91.8 Other nonspecific abnormal finding of lung field; I25.10 Atherosclerotic heart disease of native coronary artery without angina pectoris; I70.0 Atherosclerosis of aorta ==

== ENCOUNTER → 2024-01-16 | Outpatient (CLI) | payer MEDICARE, MEDICAID ==
[~2024-01-16] MED LIST changes: +METF-1156 PO; -METF-817 PO
[2024-01-16 11:10] LABS: ABG BASE EXCESS 3.8 (-2.0-2.0); ABG HCO3 31.3 MMOL/L (22.0-26.0); ABG STANDARD HCO3 27.2 MMOL/L. (22.0-26.0); ABG pH (ARTERIAL) 7.373 UNITS (7.350-7.450)
[2024-01-16 11:20] LABS: ABG PARTIAL PRESSURE O2 41.6 mmHg (75.0-100.0)
== END ==
LOC: M LAB 10:24
PROVIDERS: ATTEND Nurse Practitioner Adult Health
DX: J44.9 Chronic obstructive pulmonary disease, unspecified (principal)

== ENCOUNTER → 2024-03-28 | Outpatient (CLI) | payer MEDICARE, MEDICAID ==
[2024-03-28 09:27] LABS: HEMATOCRIT 58.8 % (36.0-47.0); HEMOGLOBIN 18.4 g/dl (12.0-15.5); MEAN CORPUSCULAR HEMOGLOBIN 29.8 pg (27.0-33.0); MEAN CORPUSCULAR HGB CONC 31.3 g/dl (32.0-36.5); MEAN CORPUSCULAR VOLUME 95.1 fl (80.0-96.0); PLATELET COUNT, AUTOMATED 190 10^3/uL (150-450); RED BLOOD COUNT 6.18 10^6/uL (4.00-5.40); WHITE BLOOD COUNT 8.7 10^3/uL (4.0-10.0)
[2024-03-28 09:53] LABS: ALBUMIN 3.1 G/DL (3.2-5.2); ALKALINE PHOSPHATASE 119 U/L (35-104); ALT/SGPT 17 U/L (7.0-40); AST/SGOT 15 U/L (<34); BILIRUBIN,TOTAL 0.7 MG/DL (0.3-1.2); BLOOD UREA NITROGEN 13 MG/DL (9-23); CARBON DIOXIDE LEVEL 36 MMOL/L (20-31); CHLORIDE LEVEL 98 MMOL/L (98-107); CHOLESTEROL LEVEL 218 MG/DL (<200); CHOLESTEROL RISK RATIO 5.84 (<5); CREATININE FOR GFR 0.78 MG/DL (0.55-1.30); GLOMERULAR FILTRATION RATE > 60.0 (>45); GLUCOSE, FASTING 118 MG/DL (74-106); HDL CHOLESTEROL 37.3 MG/DL (>40); LDL CHOLESTEROL 150.3 MG/DL (<100); NON-HDL-C 180.7 MG/DL; POTASSIUM SERUM 4.6 MMOL/L (3.5-5.1); SODIUM LEVEL 142 MMOL/L (136-145); TOTAL PROTEIN 6.8 G/DL (5.7-8.2); TRIGLYCERIDES LEVEL 152 MG/DL (<150)
[2024-03-28 10:01] LABS: HEMOGLOBIN A1c 6.2 % (4.0-6.0)
== END ==
LOC: M RAD 08:18
PROVIDERS: ATTEND Family Medicine
DX: J44.9 Chronic obstructive pulmonary disease, unspecified (principal); I10 Essential (primary) hypertension; R53.83 Other fatigue; Z79.899 Other long term (current) drug therapy

== ENCOUNTER → 2024-05-05 | Outpatient (CLI) | payer MEDICARE, MEDICAID | LOC: M PLAIMG 09:31 | PROVIDERS: ATTEND Nurse Practitioner Adult Health | DX: R91.8 Other nonspecific abnormal finding of lung field (principal) ==

== ENCOUNTER → 2024-10-09 | Outpatient (CLI) | payer MEDICARE, MEDICAID ==
[~2024-10-09] MED LIST changes: +ALLO300T2 PO; +DIPH1TAB80 PO; -PROZ20CA11 PO; +PROZ20CA12 PO; +SPIR12.9 INH
[2024-10-09 13:59] LABS: PLATELET COUNT, AUTOMATED 199 10^3/uL (150-450)
[2024-10-09 14:29] LABS: ALT/SGPT 14.0 U/L (7.0-40); AST/SGOT 18.0 U/L (<34); CALCIUM LEVEL 9.6 MG/DL (8.3-10.6); CARBON DIOXIDE LEVEL 37.0 MMOL/L (20-31); CHLORIDE LEVEL 98.0 MMOL/L (98-107); CHOLESTEROL LEVEL 239.0 MG/DL (<200); CHOLESTEROL RISK RATIO 5.04 (<5); CREATININE FOR GFR 0.75 MG/DL (0.55-1.30); GLOMERULAR FILTRATION RATE 85.6 (>39); LDL CHOLESTEROL 153.8 MG/DL (<100); NON-HDL-C 191.6 MG/DL; POTASSIUM SERUM 5.0 MMOL/L (3.5-5.1); SODIUM LEVEL 141.0 MMOL/L (136-145); TRIGLYCERIDES LEVEL 189.0 MG/DL (<150)
[2024-10-09 14:32] LABS: FREE T4 1.03 NG/DL (0.89-1.76)
[2024-10-09 14:40] LABS: ESTIMATED AVERAGE GLUCOSE 126.0 MG/DL (60-110)
== END ==
LOC: M PLALAB 11:42
PROVIDERS: ATTEND Family Medicine
DX: J44.9 Chronic obstructive pulmonary disease, unspecified (principal); I50.9 Heart failure, unspecified; G47.33 Obstructive sleep apnea (adult) (pediatric); E03.9 Hypothyroidism, unspecified; E11.9 Type 2 diabetes mellitus without complications

== ENCOUNTER → 2024-10-09 | Outpatient (REF) | payer MEDICARE, MEDICAID | LOC: M SFHCPLAZ 11:22 | PROVIDERS: ATTEND Family Medicine | DX: Z53.9 Procedure and treatment not carried out, unspecified reason (principal) ==

== ENCOUNTER → 2025-02-23 | Outpatient (CLI) | payer MEDICARE, MEDICAID ==
[~2025-02-23] MED LIST changes: -PROZ20CA12 PO; +PROZ20CA25 PO
== END ==
LOC: M RAD 07:53
PROVIDERS: ATTEND Family Medicine
DX: R91.8 Other nonspecific abnormal finding of lung field (principal); Z53.9 Procedure and treatment not carried out, unspecified reason